=== PATIENT | female | born 1990 | race Caucasian/White ===

== ENCOUNTER 2020-12-01 10:26 | Outpatient (REF) | payer OTHER, SELFPAY | END 2020-12-01 10:27 | disposition home or self-care (01) | LOC: HO.LAB 10:26 | PROVIDERS: Visit Provider Internal Medicine | DX: Z20.828 Contact with and (suspected) exposure to other viral communicable diseases (principal) | CPT/HCPCS: C9803; U0003 ==

== ENCOUNTER 2021-08-19 10:41 | Emergency (ER) | payer OTHER, SELFPAY ==
--- NOTE | ~2021-08-19 | XR_ITS ---
EXAMINATION: XR CHEST CLINICAL INFORMATION: Cough COMPARISON: Chest x-ray on 08/02/2014 TECHNIQUE: Frontal view of the chest was obtained. FINDINGS: The cardiomediastinal silhouette is normal. There is a multiple lead cardiac device extending from the left upper abdomen. There is an abandoned left chest cardiac leads terminating in the brachiocephalic vein. No areas of consolidation. No pleural effusions XR/XR chest 1V IMPRESSION: No acute disease.
[2021-08-19 10:58] VITALS: BP 90/57; PULSE 69; RESP 18; TEMP 37; O2SAT 95; BMI 34.3
[2021-08-19 11:59] LABS: Strep A Nucleic Acid Negative (Negative)
--- NOTE | 2021-08-19 12:36 | ED_ITS ---
HPI - General Adult General Chief complaint: General Medical Stated complaint: SORE THROAT FEVER Time Seen by Provider: 08/19/21 11:05 Source: patient Mode of arrival: ambulatory History of Present Illness HPI narrative: 31-year-old female with no significant past medical history presenting to the ED complaining of sore throat, subjective fever, chills/hot and cold sweats, myalgias, dry cough times a couple days. Denies ear pain, rash, CP, SOB, abdominal pain, sick contacts, recent travel Onset (ago): day(s) Related Data Previous Rx's Medication Instructions Recorded acetaminophen 500 mg tablet 500 mg PO Q6H PRN #20 tab 08/19/21 (Tylenol Extra Strength) benzonatate 100 mg capsule 100 mg PO TID PRN #14 cap 08/19/21 (Tessalon Perles) fluticasone propionate 50 2 spray INTRANASAL DAILY #16 g 08/19/21 mcg/actuation nasal spray,suspension (Flonase Allergy Relief) Allergies Allergy/AdvReac Type Severity Reaction Status Date / Time amoxicillin [AMOXICILLIN] Allergy Unknown RASH, Verified 08/19/21 11:01 rash, swelling, hives sulfamethoxazole Allergy Unknown HIVES Unverified 08/18/20 16:20 [From BACTRIM] trimethoprim [From BACTRIM] Allergy Unknown HIVES Unverified 08/18/20 16:20 Review of Systems Review of Systems: Constitutional: +Subj Fever, + Chills ENT/Mouth: No Ear Pain, + Nasal Congestion, No Sinus Pain, No Hoarseness, + sore throat, + Rhinorrhea, No Swallowing Difficulty Cardiovascular: No Chest Pain, No SOB Respiratory: + Cough, No Sputum, No Wheezing Gastrointestinal: No Nausea, No Vomiting, No Diarrhea, No Constipation, No Abdominal pain Genitourinary: No Dysuria, No Hematuria, No Urgency, No Flank Pain Musculoskeletal: No joint pain, +Myalgias, No Joint Swelling Skin: No Skin Lesions, No rash Neuro: No Weakness, No Numbness, No Paresthesias Yes all other systems are reviewed and are negative COUNTS INCLUDE 234 BEDS AT THE [facility] Past Medical History Attestation statement: The following information was validated with the patient. Medical History (Updated 08/19/21 @ 12:42 by PRATIK Mendez) No known health problems Social History Social History Advance Directives: Yes Advance Directives Information Provided: Yes Advance Directives on File: No Patient : No Physical Exam Vital Signs: Vital Signs: Last Vital Signs Temp 98.6 F 08/19/21 10:58 Pulse 69 08/19/21 10:58 Resp 18 08/19/21 10:58 BP 90/57 L 08/19/21 10:58 Pulse Ox 95 08/19/21 10:58 Body Mass Index 34.3 Const: General: cooperative and healthy appearing Orientation/consciousness: patient oriented x3 Limitations: no limitations HENMT: Head: Yes normal to inspection Ears: hearing grossly normal bilaterally, external ears normal, TM's normal bilaterally and mastoids normal General nose exam: Normal external nose present Face and sinus: Yes normal facial exam Mouth: Normal oral and palatal mucosa present Throat: Yes posterior oropharynx normal, Yes tonsils normal, Yes uvula midline, No peritonsillar mass, No uvula laterally displaced and No uvular edema Eyes: General: appearance normal, both eyes and all related structures EOM: EOMs intact bilaterally Neck: Neck: Yes normal visual inspection, Yes no lymphadenopathy and Yes no meningeal signs Resp: Effort & Inspection: normal respiratory effort Auscultation: clear to auscultation bilaterally and wheezes (slight end expiratory wheeze bibasilar) Cardio: Rate: regular rate Heart sounds: S1 normal heart sound present and S2 normal heart sound present GI: Inspection: Yes normal to inspection Palpation (GI): Soft to palpation and nontender Skin: Rashes: no rashes Wounds: no wounds Neuro: General: patient oriented x3 and no meningeal signs Gait exam (Neuro): Normal gait present Extrem: General: Yes normal to inspection, Yes no pedal edema and Yes no calf tenderness Course Course Course Narrative: -1241--rapid strep negative. XR chest 1V IMPRESSION: No acute disease. > results discussed with patient including worrisome signs and symptoms and strict return precautions. COVID-19 results still pending, will call patient with result later today Medical Decision Making MDM Narrative Medical decision making narrative: 31-year-old female with no significant past medical history presenting to the ED complaining of sore throat, subjective fever, chills/hot and cold sweats, myalgias, dry cough times a couple days. On exam mildly hypotensive, NAD/nontoxic, lungs with slight end expiratory wheeze bibasilar, patient in no respiratory distress, no pedal edema/calf tenderness. Concern for viral syndrome/COVID-19 vs bronchitis. Lower concern for pneumonia. Plan: COVID-19/influenza/RSV testing, rapid strep, CXR, albuterol oral inhaler Lab Data Labs: Lab Results 08/19/21 Range/Units 11:39 S. pyogenes GrpA AMELIA Negative (Negative) Discharge Plan Discharge Clinical Impression: Acute viral syndrome Patient Disposition: Home, Self-Care Additional Instructions: Continue to use albuterol inhaler at home as needed every 4-6 hours for shortness of breath/wheezing Tessalon Perles for cough, take as needed Flonase as a nasal decongestant spray Please follow-up with her doctor. If her symptoms persist or worsen, become unbearable, you have fevers unresolved Tylenol or Motrin please return to the ED Based on your symptoms and history we have sent a COVID-19. Although your RESULT IS PENDING at this time. RESULTS should return within a few hours. At this time you will be contacted with either NEGATIVE OR POSITIVE results. -Please wait until we contact you for your results. At this time you will be okay for discharge. Please plan for self quarantine for up to 10- 14 days. Do not expose yourself to others. You may not go to work. If testing does come back negative you may return to activities as long as you are no longer having any symptoms for at least 3 days. Please continue to follow cold instructions and wash your hands frequently. You may take Tylenol as directed on the bottle for pain or fever. CDC Guidelines for home isolation: - Stay away from others - WEAR A MASK if you are sick AND STAY HOME - Cover your mouth and nose with a tissue when you cough or sneeze. Dispose of tissues in a lined trash can and wash your hands immediately with soap and water for at least 20 seconds. If soap and water are not available, clean hands with alcohol-based hand compensator worker that contains at least 60% alcohol. - Clean your hands often with soap and water for at least 20 seconds - Avoid touching your eyes, nose and mouth with unwashed hands - Do not share dishes, drinking glasses, cups, eating utensils, towels, or b edding with other people in your home. After using these items, wash them thoroughly with soap and water or put in the mixing house operator. - Clean high-touch surfaces in your isolation area ( sick room and bathroom) every day; let a caregiver clean and disinfect high-touch surfaces in other areas of the home. Clean the area or item with soap and water or another detergent if it is dirty. Then, use a household disinfectant. - Limit contact with pets and animals: If you must care for a pet, wash your hands before and after interacting with them) Prescriptions: New acetaminophen [Tylenol Extra Strength] 500 mg tablet 500 mg PO Q6H PRN (Reason: pain or fever) Qty: 20 RF: 0 benzonatate [Tessalon Perles] 100 mg capsule 100 mg PO TID PRN (Reason: cough) Qty: 14 RF: 0 fluticasone propionate [Flonase Allergy Relief] 50 mcg/actuation spray,suspension 2 spray intranasal DAILY Qty: 16 RF: 0 Referrals: Physician,None [Primary Care Provider] - 2 days Stand Alone Forms: Work/School Release
[2021-08-19] MEDS: Albuterol Sulfate 90 MCG 8 GM INHALER 4 PUFF INHALE (12:42)
[2021-08-19 12:55] VITALS: BP 106/52; PULSE 80; RESP 19; O2SAT 97
[2021-08-19 13:09] LABS: Influenza A PCR NEGATIVE (Negative); Influenza B PCR NEGATIVE (Negative); Resp Syncy Virus RNA Qual PCR NEGATIVE (Negative); SARS COV2 PCR INHOUSE NEGATIVE (Negative)
== END 2021-08-19 13:00 | disposition home or self-care (01) ==
PROVIDERS: Physician Assistant; Emergency Provider Emergency Medicine
DX: B34.9 Viral infection, unspecified (principal); R50.9 Fever, unspecified; Z79.899 Other long term (current) drug therapy; Z20.822 Contact with and (suspected) exposure to COVID-19
CPT/HCPCS: 0241U; 36415; 71045; 87651; 99283; 99284

== ENCOUNTER 2022-06-03 08:23 | Emergency (ER) | payer OTHER, SELFPAY ==
--- NOTE | ~2022-06-03 | XR_ITS ---
EXAMINATION: XR ANKLE, RIGHT CLINICAL INFORMATION: Lateral right ankle pain status post twisting injury. COMPARISON: None TECHNIQUE: AP, lateral, and mortise views of the right ankle. FINDINGS: Mild to moderate soft tissue swelling is seen, more pronounced laterally. The ankle joint and mortise are intact. There is no acute fracture or dislocation. The tarsal bones are normally aligned. XR/XR ankle RT 2V IMPRESSION: Mild to moderate soft tissue swelling, more pronounced laterally without acute underlying osseous abnormality.
[2022-06-03 11:20] VITALS: BP 113/70; PULSE 65; RESP 18; TEMP 36.8; O2SAT 98
--- NOTE | 2022-06-03 12:48 | ED.LOWEXIN ---
HPI - Extremity Injury (Lower) General Chief Complaint: Extremity Injury, Lower Stated Complaint: R ankle pain/work inj Time Seen by Provider: 06/03/22 12:48 History of Present Illness HPI Narrative: Patient complains of right ankle pain and swelling when she tripped on uneven ground at work twisting her right ankle, no other injury no other complaint Related Data Previous Rx's Medication Instructions Recorded acetaminophen 500 mg tablet 500 mg PO Q6H PRN pain or fever 08/19/21 (Tylenol Extra Strength) #20 tabs benzonatate 100 mg capsule 100 mg PO TID PRN cough #14 caps 08/19/21 (Tessalon Perles) fluticasone propionate 50 2 spray intranasal DAILY #16 grams 08/19/21 mcg/actuation nasal spray,suspension (Flonase Allergy Relief) ibuprofen 600 mg tablet 600 mg PO Q6H PRN pain #30 tabs 06/03/22 Allergies Allergy/AdvReac Type Severity Reaction Status Date / Time amoxicillin [AMOXICILLIN] Allergy Unknown RASH, Verified 06/03/22 11:20 rash, swelling, hives sulfamethoxazole Allergy Unknown HIVES Verified 06/03/22 11:20 [From BACTRIM] trimethoprim [From BACTRIM] Allergy Unknown HIVES Verified 06/03/22 11:20 Review of Systems Review of Systems: Is positive for right ankle pain and swelling Negatives are no dizziness no headache no fainting no loss of consciousness no neck pain no back pain no numbness weakness or tingling no skin lacerations no other extremity injuries Yes all other systems are reviewed and are negative PMFSH Past Medical History Source: nursing notes reviewed Medical History (Updated 06/03/22 @ 13:00 by PRATIK Esquivel) No known health problems Social History Social History Advance Directives: No Advance Directives Information Provided: No Physical Exam Vital Signs: Vital Signs: Last Vital Signs Temp 98.2 F 06/03/22 11:20 Pulse 65 06/03/22 11:20 Resp 18 06/03/22 11:20 BP 113/70 06/03/22 11:20 Pulse Ox 98 06/03/22 11:20 O2 Del Method 06/03/22 11:20 BMI result Body Mass Index 0.3 General appearance comfortable no distress Head is normocephalic atraumatic Neck is supple Respiratory no distress The back full range of motion Extremities the right ankle is tender and swollen below and around the lateral malleolus, there is no other foot tenderness, the knee has full range of motion, normal in appearance, skin is intact and neurovascular is intact Other extremities are normal Neuro no focal motor sensory deficits Skin no lacerations Course Course Course Narrative: Right ankle x-ray was negative for fracture, patient diagnosed with right ankle sprain and will follow with [facility] for work related injury Discharge Plan Discharge Clinical Impression: Right ankle sprain Patient Disposition: Home, Self-Care Additional Instructions: X-ray did not show any broken bone in her right ankle, so this is a sprained right ankle Apply ice elevate leg Motrin as needed Follow with [facility] for work related injury Prescriptions: New ibuprofen 600 mg tablet 600 mg PO Q6H PRN (Reason: pain) Qty: 30 0RF No Action acetaminophen [Tylenol Extra Strength] 500 mg tablet 500 mg PO Q6H PRN (Reason: pain or fever) Qty: 20 0RF benzonatate [Tessalon Perles] 100 mg capsule 100 mg PO TID PRN (Reason: cough) Qty: 14 0RF fluticasone propionate [Flonase Allergy Relief] 50 mcg/actuation spray,suspension 2 spray intranasal DAILY Qty: 16 0RF Rx Instructions: administer into each nostril Referrals: [facility] [Provider Group] (Right ankle injury after fall at work) Stand Alone Forms: Work/School Release
== END 2022-06-03 13:07 | disposition home or self-care (01) ==
PROVIDERS: Emergency Provider Emergency Medicine Emergency Medical Services
DX: M25.571 Pain in right ankle and joints of right foot (principal); Z79.899 Other long term (current) drug therapy
CPT/HCPCS: 73600; 99283

== ENCOUNTER 2022-09-20 13:06 | Outpatient (REF) | payer OTHER, SELFPAY ==
--- NOTE | ~2022-09-20 | XR_ITS ---
EXAMINATION: XR MANDIBLE CLINICAL INFORMATION: Shoulder pain COMPARISON: None TECHNIQUE: 4 views of the mandible were obtained. FINDINGS: There are no fractures or dislocations. The TM joints appear normal. No bone, joint or soft tissue abnormality is demonstrated. Visualized paranasal sinuses are unremarkable. XR/XR mandible min 4V IMPRESSION: Unremarkable examination.
== END 2022-09-20 13:07 | disposition home or self-care (01) ==
LOC: HO.HMGCX 13:06
DX: R68.84 Jaw pain (principal)
CPT/HCPCS: 70110

== ENCOUNTER 2023-12-11 14:36 | Outpatient (AMB) | payer OTHER, SELFPAY ==
[2023-12-11 14:38] VITALS: BP 136/84; PULSE 78; O2SAT 98; BMI 35.7
--- NOTE | 2023-12-11 14:38 | A.OFFPC_ITS ---
Vital Signs 12/11/23 14:38 Height 5 ft 4 in Weight 208 lb BMI 35.7 BP 136/84 Blood Pressure Location Lt brachial Position Sitting Pulse 78 Pulse Source Pulse Oximeter Pulse Oximetry (%) 98 Oxygen Delivery Method Room Air Intake Visit Reasons: Annual Pe Allergies amoxicillin [AMOXICILLIN] Allergy (Unknown, Verified 12/11/23 14:38) RASH, rash, swelling, hives sulfamethoxazole [From BACTRIM] Allergy (Unknown, Verified 12/11/23 14:38) HIVES trimethoprim [From BACTRIM] Allergy (Unknown, Verified 12/11/23 14:38) HIVES Medication List - Last Reconciled 12/11/23 by Erlin Boston MD No Known Home Meds Tobacco use date assessed: 12/11/23 Dental Screening Dental Screen Date: 12/11/23 Did you have a dental visit in the last 12 months?: Yes Did you have a dental problem in the last 6 months where you did not have access to dental care?: No Was dental information given to patient?: Patient has dentist HPI Annual Pe HPI Details Patient is 33-year-old female came in today for physical examination Patient goes to [facility] breast exam and Pap smear through them Complaining of left ear pain on examination patient have erythematous tympanic membrane I have sent azithromycin course Also continued to smoke, tells me that when she stops walking she feels very anxious and is requesting a treatment I have sent buspirone 5 mg tablet patient may take that up to 2 times a day I have also ordered labs for the patient she have a history of recurrent miscarriages I have ordered ANNMARIE test as well. Continued to drink alcohol and continued to smoke, once again we discussed the toxic effects of nicotine and alcohol and I would urge patient to stop as soon as possible Patient will return in 2 or 3 weeks for follow-up [facility] Medical History Pain in lower jaw No known health problems Social History Patient Tobacco Use Status: Current everyday Tobacco user e-Cigarette/Vaping Use: Never Used service: No Current occupational status: employed Cognitive needs: No Hearing needs: No Vision needs: Yes Questionnaire PHQ-9 Over the last 2 weeks, how often have you been bothered by any of the following problems? 1. Little interest or pleasure in doing things: not at all 2. Feeling down, depressed, or hopeless: not at all 3. Trouble falling or staying asleep, or sleeping too much: not at all 4. Feeling tired or having little energy: not at all 5. Poor appetite or overeating: not at all 6. Feeling bad about yourself - or that you are a failure or have let yourself or your family down: not at all 7. Trouble concentrating on things, such as reading the newspaper or watching television: not at all 8. Moving or speaking so slowly that other people could have noticed. Or the opposite - being so fidgety or restless that you have been moving around a lot more than usual: not at all 9. Thoughts that you would be better off or of hurting yourself in some way: not at all Total score: 0 Depression Screening Interpretation: Negative Depression Screening Done: Yes 75811 - PHQ-9 Billing: Yes Source: Developed by Drs. Giorgi Ventura, Graciela Shahid, Estuardo Paiz and colleagues, with an educational paddy from [employer]. Thrive Questionnaire Date Thrive assessed: 03/07/23 I am a: Patient What is your living situation today?: I have a steady place to live Within the past 12 months, did the food you bought not last and you didn't have the money to get more?: Never true Within the past 12 months, did you worry whether your food would run out before you got money to buy more?: Never true Do you have trouble paying for medicines?: No Do you have trouble getting transportation to medical appointments?: No Do you have trouble paying your heating and electricity bill?: No Do you have trouble taking care of your child, family member or friend?: No Do you have trouble with day-to-day activities such as bathing, preparing meals, shopping, managing finances, etc.?: No Are you currently unemployed and looking for a job?: No Are you interested in more education?: No Please select the resources that you would like help with: None Currently or been in a relationship where the following occur: no concerns reported AUDIT C Alcohol Use Questionnaire (AUDIT-C) 1. How often do you have a drink containing alcohol?: Monthly or less 2. How many drinks containing alcohol do you have on a typical day when you are drinking?: 10 or more 3. How often do you have six or more drinks on one occasion?: Monthly Total Score: 7 Score Reviewed/Action Taken: Yes (Help offered) ROSCOE-7 AMB Questionnaire ROSCOE-7 Date ROSCOE - 7 assessed: 12/11/23 Feeling nervous, anxious, or on edge: 0 = Not at all Not being able to stop or control worryin = Not at all Worrying too much about different things: 0 = Not at all Trouble relaxin = Not at all Being so restless that it is hard to sit still: 0 = Not at all Becoming easily annoyed or irritable: 0 = Not at all Feeling afraid as if something awful might happen: 0 = Not at all Total ROSCOE-7 score (0-4 normal; 5-9 mild; 10-14 moderate; 15-21 severe): 0 Source: Developed by Drs. Giorgi Ventura, Graciela Shahid, Estuardo Paiz and colleagues, with an educational paddy from [employer]. ROSCOE-7 Assessment Billing ROSCOE-7 Assessment Tool: ROSCOE-7 Assessment 78073 Review of Systems Const Denies chills, Denies fever(s) and Denies headache(s) Eyes Denies blurry vision ENT Denies headache(s), Denies nasal discharge, Denies nasal obstruction, Denies odynophagia and Denies sinus pain Card Denies chest pain at rest and Denies chest pain with activity Resp Denies cough and Denies hemoptysis GI Denies diarrhea, Denies odynophagia, Denies vomiting and Denies hematemesis Reports as per HPI Musc Denies abnormal gait Skin/Breast Reports as per HPI Neuro Denies Neuro-related abnormal movements, Denies Abnormal speech present, Denies abnormal gait, Denies headache(s) and Denies Sensory deficit (Neuro) Psych Denies mood swings and Denies paranoia Endo Reports as per HPI Ermias/Lymph Reports as per HPI Aller/Immun Reports as per HPI Physical exam (Primary Care) Vital Signs: Last Vital Signs Pulse 78 12/11/23 14:38 BP 136/84 12/11/23 14:38 Pulse Ox 98 12/11/23 14:38 Oxygen Delivery Method Room Air 12/11/23 14:38 BMI result Body Mass Index 35.7 BMI Assessment/Plan discussion: High Tobacco/Smoking Status: Tobacco use Status Tobacco use date assessed 12/11/23 12/11/23 14:43 Patient Tobacco Use Status Current everyday Tobacco 12/11/23 14:43 e-Cigarette/Vaping Use Never Used 12/11/23 14:43 Are you ready to quit: Yes Tobacco cessation counseling provided: Yes Relapse Prevention: discussed the importance of a supportive environment CPT code: 23625 - 4-10 Minutes Depression Screening Interpretation: Negative Thrive Assessment: Date of Thrive Assessment Date Thrive assessed 02/01/23 12/11/23 14:43 Currently or been in a relationship where the following occur: no concerns reported Const General: cooperative, comfortable and no acute distress Orientation/consciousness: patient oriented x3 HENMT Other: Right ear tympanic membrane erythematous with intact light reflex Head: Yes normocephalic and Yes atraumatic Eyes General: appearance normal, both eyes and all related structures Pupils: Equal, round and reactive pupils present EOM: EOMs intact bilaterally Neck Neck: Yes supple and No lymphadenopathy Thyroid: Thyroid normal Lymphatic: no lymphadenopathy noted Resp Effort & Inspection: normal respiratory effort and able to speak in complete sentences Auscultation: clear to auscultation bilaterally Cardio Heart sounds: S1 normal heart sound present and S2 normal heart sound present GI Palpation (GI): Soft to palpation and nontender Auscultation: normal bowel sounds General: Yes no CVA tenderness Back/Spine/Pelvis Back: no CVA tenderness Skin General skin exam: elasticity normal and turgor normal Neuro General: patient oriented x3 and gait normal Cranial nerves: Yes Equal, round and reactive pupils present Speech: No Abnormal speech present Sensory Exam: No Sensory deficit (Neuro) Coordination: tandem gait normal and Romberg test negative Extrem General: Yes normal exam except as noted and No edema Assessment and Plan Assessment & Plan (1) Encounter for general adult medical examination with abnormal findings: Code(s): Z00.01 - Encounter for general adult medical examination with abnormal findings (2) Nicotine dependence: Code(s): F17.200 - Nicotine dependence, unspecified, uncomplicated Qualifiers: Nicotine product type: cigarettes Substance use status: uncomplicated (3) Alcohol dependence: Code(s): F10.20 - Alcohol dependence, uncomplicated Qualifiers: Substance use status: uncomplicated (4) Major depression, recurrent: Code(s): F33.9 - Major depressive disorder, recurrent, unspecified Qualifiers: Active/Remission status: in partial remission (5) Anxiety, generalized: Code(s): F41.1 - Generalized anxiety disorder (6) History of multiple miscarriages: Code(s): N96 - Recurrent loss (7) S/P placement of cardiac pacemaker: Code(s): Z95.0 - Presence of cardiac pacemaker (8) Bipolar disorder: Code(s): F31.9 - Bipolar disorder, unspecified Qualifiers: Active/Remission status: in full remission Most recent bipolar episode type: mixed (9) Congenital heart defect: Code(s): Q24.9 - Congenital malformation of heart, unspecified (10) Obesity due to excess calories: Code(s): E66.09 - Other obesity due to excess calories Qualifiers: Obesity classification: adult class 2 (BMI 35 - 39.9) Serious obesity comorbidity presence: with serious comorbidity Body mass index: BMI 35.0-35.9 Qualified Code(s): E66.01 - Morbid (severe) obesity due to excess calories; Z68.35 - Body mass index [BMI] 35.0-35.9, adult Plan Patient is 33-year-old female came in today for physical examination Patient goes to [facility] breast exam and Pap smear through them Complaining of left ear pain on examination patient have erythematous tympanic membrane I have sent azithromycin course Also continued to smoke, tells me that when she stops walking she feels very anxious and is requesting a treatment I have sent buspirone 5 mg tablet patient may take that up to 2 times a day I have also ordered labs for the patient she have a history of recurrent miscarriages I have ordered ANNMARIE test as well. Continued to drink alcohol and continued to smoke, once again we discussed the toxic effects of nicotine and alcohol and I would urge patient to stop as soon as possible Patient have a diagnosis of bipolar disorder and major depression she was taking Abilify in the past but has stopped taking it. Patient was seeing psychiatrist at that time. BMI is also elevated need to lose weight Patient will return in 2 or 3 weeks for follow-up Orders: Orders Anti DNA DS Antibody Today N96 - Recurrent loss Medications: New buspirone 5 mg PO BID 15 days 30 tabs 0RF Anxiety azithromycin Take 2 tablets today then 1 daily 250 mg PO ONCE 5 days 6 tabs 0RF J06.9 - Acute upper respiratory infection, unspecified Coding Level of Care Code Est Pt Prev Care 18-39y(30635) Diagnoses Encounter for general adult medical examination with abnormal findings Z00.01 Nicotine dependence F17.200 Nicotine product type: cigarettes Substance use status: uncomplicated Alcohol dependence F10.20 Substance use status: uncomplicated Major depression, recurrent F33.9 Active/Remission status: in partial remission Anxiety, generalized F41.1 History of multiple miscarriages N96 S/P placement of cardiac pacemaker Z95.0 Bipolar disorder F31.9 Active/Remission status: in full remission Most recent bipolar episode type: mixed Congenital heart defect Q24.9 Class 2 severe obesity due to excess calories with serious comorbidity and body mass index (BMI) of 35.0 to 35.9 in adult E66.01; Z68.35 Obesity classification: adult class 2 (BMI 35 - 39.9) Serious obesity comorbidity presence: with serious comorbidity Body mass index: BMI 35.0-35.9 Additional Codes Vital Signs *Quality* - CPT code: 82115 - 4-10 Minutes ([id number]) ROSCOE-7 Assessment Billing - ROSCOE-7 Assessment Tool: ROSCOE-7 Assessment 77227 ([id number])
== END 2023-12-11 15:04 | disposition home or self-care (01) ==
PROVIDERS: PCP Internal Medicine; Visit Provider Internal Medicine
DX: Z00.01 Encounter for general adult medical examination with abnormal findings (principal); F10.20 Alcohol dependence, uncomplicated; F33.9 Major depressive disorder, recurrent, unspecified; J06.9 Acute upper respiratory infection, unspecified; E66.01 Morbid (severe) obesity due to excess calories; F31.9 Bipolar disorder, unspecified; F17.210 Nicotine dependence, cigarettes, uncomplicated; F41.1 Generalized anxiety disorder; Z68.35 Body mass index [BMI] 35.0-35.9, adult; N96 Recurrent pregnancy loss; Z95.0 Presence of cardiac pacemaker; Q24.9 Congenital malformation of heart, unspecified
CPT/HCPCS: 99213; 99395

== ENCOUNTER 2023-12-17 10:22 | Outpatient (REF) | payer OTHER, SELFPAY ==
[2023-12-18 13:04] LABS: Anti DNA DS Antibody 4 IU/mL
== END 2023-12-17 10:23 | disposition home or self-care (01) ==
LOC: HO.HMGCLDS 10:22
PROVIDERS: PCP Internal Medicine; Visit Provider Internal Medicine
DX: N96 Recurrent pregnancy loss (principal)
CPT/HCPCS: 36415; 86225

== ENCOUNTER 2023-12-24 12:16 | Outpatient (AMB) | payer OTHER, SELFPAY ==
[2023-12-24 12:33] VITALS: BP 110/72; PULSE 70; O2SAT 98; BMI 35.7
--- NOTE | 2023-12-24 12:33 | A.OFFPC_ITS ---
Vital Signs 12/24/23 12:33 Height 5 ft 4 in Weight 208 lb BMI 35.7 BP 110/72 Blood Pressure Location Lt brachial Position Sitting Pulse 70 Pulse Source Pulse Oximeter Pulse Oximetry (%) 98 Oxygen Delivery Method Room Air Intake Visit Reasons: F/U Ear infection/meds/Anxiety Allergies amoxicillin [AMOXICILLIN] Allergy (Unknown, Verified 12/11/23 14:38) RASH, rash, swelling, hives sulfamethoxazole [From BACTRIM] Allergy (Unknown, Verified 12/11/23 14:38) HIVES trimethoprim [From BACTRIM] Allergy (Unknown, Verified 12/11/23 14:38) HIVES Medication List - Last Reconciled 12/24/23 by Erlin Boston MD buspirone 5 mg PO BID 15 days Tobacco use date assessed: 12/24/23 Dental Screening Dental Screen Date: 12/24/23 Did you have a dental visit in the last 12 months?: Yes Did you have a dental problem in the last 6 months where you did not have access to dental care?: No Was dental information given to patient?: Patient has dentist HPI F/U Ear infection/meds/Anxiety HPI Details Patient is 33-year-old female she is doing much better as far as anxiety is concerned She is taking BuSpar 5 mg b.i.d. and has cut down on her smoking a lot Patient was diagnosed with antiphospholipid antibody syndrome in [facility] We did the double-stranded DNA test which came back at 4 I have placed a referral request for patient to be evaluated by Hematology Meanwhile she is to start taking baby aspirin daily Patient has appointment for physical exam in January [facility] Medical History Pain in lower jaw No known health problems Social History Housing: Apartment Patient Tobacco Use Status: Current everyday Tobacco user e-Cigarette/Vaping Use: Never Used service: No Current occupational status: employed Cognitive needs: No Hearing needs: No Vision needs: Yes Questionnaire Thrive Questionnaire Date Thrive assessed: 03/07/23 AUDIT C Alcohol Use Questionnaire (AUDIT-C) 1. How often do you have a drink containing alcohol?: Monthly or less 2. How many drinks containing alcohol do you have on a typical day when you are drinking?: 3 or 4 3. How often do you have six or more drinks on one occasion?: Monthly Total Score: 4 Score Reviewed/Action Taken: Yes (Help offered) ROSCOE-7 AMB Questionnaire ROSCOE-7 Date ROSCOE - 7 assessed: 12/11/23 Source: Developed by Drs. Giorgi Ventura, Graciela Shahid, Estuardo Paiz and colleagues, with an educational paddy from [employer]. Review of Systems Const Denies chills and Denies fever(s) ENT Denies epistaxis and Denies nasal discharge Card Denies chest pain Resp Denies chest congestion, Denies cough and Denies hemoptysis GI Denies diarrhea and Denies nausea Skin/Breast Denies rash Neuro Reports no additional complaints Psych Reports no additional complaints Endo Reports no additional complaints Physical exam (Primary Care) Vital Signs: Last Vital Signs Pulse 70 12/24/23 12:33 BP 110/72 12/24/23 12:33 Pulse Ox 98 12/24/23 12:33 Oxygen Delivery Method Room Air 12/24/23 12:33 BMI result Body Mass Index 35.7 Tobacco/Smoking Status: Tobacco use Status Tobacco use date assessed 12/24/23 12/24/23 12:38 Patient Tobacco Use Status Current everyday Tobacco 12/24/23 12:34 e-Cigarette/Vaping Use Never Used 12/24/23 12:34 Thrive Assessment: Date of Thrive Assessment Date Thrive assessed 03/07/23 12/24/23 12:34 Const General: cooperative, comfortable and no acute distress Orientation/consciousness: patient oriented x3 HENMT Head: Yes normocephalic Eyes General: appearance normal, both eyes and all related structures Neck Neck: Yes supple Resp Effort & Inspection: normal respiratory effort, no cough and no stridor Cardio Rhythm: regular rhythm Heart sounds: S1 normal heart sound present and S2 normal heart sound present Skin General skin exam: turgor normal Neuro General: patient oriented x3, tone normal and moves all extremities Extrem Right lower extremity: no edema Left lower extremity: no edema Assessment and Plan Assessment & Plan (1) Antiphospholipid antibody syndrome: Code(s): D68.61 - Antiphospholipid syndrome (2) Anxiety, generalized: Code(s): F41.1 - Generalized anxiety disorder (3) Major depression, recurrent: Code(s): F33.9 - Major depressive disorder, recurrent, unspecified Qualifiers: Active/Remission status: in partial remission Qualified Code(s): F33.41 - Major depressive disorder, recurrent, in partial remission (4) Nicotine dependence: Code(s): F17.200 - Nicotine dependence, unspecified, uncomplicated Qualifiers: Nicotine product type: cigarettes Substance use status: uncomplicated Qualified Code(s): F17.210 - Nicotine dependence, cigarettes, uncomplicated Plan Patient is 33-year-old female she is doing much better as far as anxiety is concerned She is taking BuSpar 5 mg b.i.d. and has cut down on her smoking a lot Patient was diagnosed with antiphospholipid antibody syndrome in [facility] We did the double-stranded DNA test which came back at 4 I have placed a referral request for patient to be evaluated by Hematology Meanwhile she is to start taking baby aspirin daily Patient has appointment for physical exam in January Orders: Referrals Hematology & Oncology Referral D68.61 - Antiphospholipid syndrome Medications: Changed From buspirone 5 mg PO BID 15 days 30 tabs 0RF Anxiety To buspirone 5 mg PO TID 270 tabs 0RF Anxiety 90 days Coding Level of Care Code Est Pt Level 4 (90760) Diagnoses Antiphospholipid antibody syndrome D68.61 Anxiety, generalized F41.1 Recurrent major depressive disorder, in partial remission F33.41 Active/Remission status: in partial remission Cigarette nicotine dependence without complication F17.210 Nicotine product type: cigarettes Substance use status: uncomplicated
== END 2023-12-24 13:07 | disposition home or self-care (01) ==
PROVIDERS: PCP Internal Medicine; Visit Provider Internal Medicine
DX: D68.61 Antiphospholipid syndrome (principal); F41.1 Generalized anxiety disorder; F33.41 Major depressive disorder, recurrent, in partial remission; F17.210 Nicotine dependence, cigarettes, uncomplicated
CPT/HCPCS: 99214

== ENCOUNTER 2024-01-30 09:02 | Outpatient (AMB) | payer OTHER, SELFPAY ==
--- NOTE | 2024-01-30 09:48 | AM.OFFWIN_ITS ---
Intake Vital Signs 01/30/24 09:49 Height 5 ft 4 in Weight 208 lb BMI 35.7 BP 110/72 Blood Pressure Location Lt brachial Position Sitting Pulse 78 Pulse Source Pulse Oximeter Temp 98.2 F Temp Source Oral Pulse Oximetry (%) 98 Oxygen Delivery Method Room Air Intake Visit Reasons: EST/ red patches all over body([phone]) Intake Note: pt is here for red patches all over body since yesterday, denies new medication Patient Tobacco Use Status: Current everyday Tobacco user Allergies amoxicillin [AMOXICILLIN] Allergy (Unknown, Verified 01/30/24 09:49) RASH, rash, swelling, hives sulfamethoxazole [From BACTRIM] Allergy (Unknown, Verified 01/30/24 09:49) HIVES trimethoprim [From BACTRIM] Allergy (Unknown, Verified 01/30/24 09:49) HIVES Do you need a note to return to daycare/school/sports/work: Yes HPI HPI Comments History of Present Illness Details 33 y/o female patient who presents to [facility] in clinic with c/o hives all over her body. Reports noticing them yesterday morning. Denies SOB, facial or tongue swelling. Denies changes to her cosmetic, or detergent. Denies new medications or change of diet. [facility] Medical History Pain in lower jaw No known health problems Social History Housing: Apartment Patient Tobacco Use Status: Current everyday Tobacco user e-Cigarette/Vaping Use: Never Used service: No Current occupational status: employed Cognitive needs: No Hearing needs: No Vision needs: Yes Review of Systems Const All systems reviewed & are unremarkable except as noted in HPI and below Physical Exam Vital Signs: Last Vital Signs Temp 98.2 F 01/30/24 09:49 Pulse 78 01/30/24 09:49 BP 110/72 01/30/24 09:49 Pulse Ox 98 01/30/24 09:49 Oxygen Delivery Method Room Air 01/30/24 09:49 BMI result Body Mass Index 35.7 Const General: no acute distress Nutritional Appearance: overweight Orientation/consciousness: patient oriented x3 Skin Other: Small to medium size wheals with redness and indurated, on arms, torso and lower legs. Neuro General: patient oriented x3 Gait exam (Neuro): Normal gait present Extrem General: Yes full ROM Assessment & Plan Assessment & Plan (1) Hives: Code(s): L50.9 - Urticaria, unspecified Plan: - Use the cream as directed. Medications: New hydrocortisone 1% (Anti-Itch (hydrocortisone)) 1 appl topical BID PRN 28.4 grams 0RF skin irritation and hives L50.9 - Urticaria, unspecified prednisone 20 mg PO DAILY 5 days 5 tabs 0RF L50.9 - Urticaria, unspecified Coding Level of Care Code Est Pt Level 3 (71269) Diagnoses Hives L50.9 Time Spent (min) 15
[2024-01-30 09:49] VITALS: BP 110/72; PULSE 78; TEMP 36.8; O2SAT 98; BMI 35.7
== END 2024-01-30 10:35 | disposition home or self-care (01) ==
PROVIDERS: PCP Internal Medicine; Visit Provider Nurse Practitioner Family
DX: L50.9 Urticaria, unspecified (principal)
CPT/HCPCS: 99213

== ENCOUNTER → 2024-03-09 14:08 | Outpatient (BNV) | payer OTHER, SELFPAY | PROVIDERS: PCP Internal Medicine; Referring Provider Internal Medicine; Visit Provider Internal Medicine Medical Oncology | DX: D68.61 Antiphospholipid syndrome (principal) | CPT/HCPCS: 99204; 99213 ==

== ENCOUNTER 2024-04-08 10:48 | Outpatient (AMB) | payer OTHER, SELFPAY ==
[2024-04-08 10:55] VITALS: BP 110/80; PULSE 73; TEMP 36.4; O2SAT 96; BMI 36.0
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
== END 2024-04-08 12:15 | disposition home or self-care (01) ==
PROVIDERS: PCP Internal Medicine; Visit Provider Physician Assistant Medical
DX: M54.12 Radiculopathy, cervical region (principal)
CPT/HCPCS: 99213

== ENCOUNTER 2024-04-08 11:09 | Outpatient (REF) | payer OTHER, SELFPAY ==
--- NOTE | ~2024-04-08 | XR_ITS ---
EXAMINATION: XR CERVICAL SPINE CLINICAL INFORMATION: Neck pain COMPARISON: None available. TECHNIQUE: 3 views of the cervical spine were obtained. FINDINGS: Bone alignment is normal. No fracture or dislocation. Mild disc space narrowing at C6-C7. Prevertebral soft tissues are normal. Partially visualized lead in the left chest similar to chest x-ray August 2021 XR/XR cervical spine 3V IMPRESSION: Mild disc space narrowing at C6-C7.
== END 2024-04-08 11:10 | disposition home or self-care (01) ==
LOC: HO.HMGCX 11:09
PROVIDERS: PCP Internal Medicine; Visit Provider Physician Assistant Medical
DX: M54.2 Cervicalgia (principal)
CPT/HCPCS: 72040

== ENCOUNTER 2024-04-15 11:51 | Outpatient (AMB) | payer OTHER, SELFPAY ==
[2024-04-15 12:02] VITALS: BP 118/84; PULSE 84; O2SAT 98; BMI 35.9
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
== END 2024-04-15 12:19 | disposition home or self-care (01) ==
PROVIDERS: PCP Internal Medicine; Visit Provider Internal Medicine
DX: M54.12 Radiculopathy, cervical region (principal); R20.2 Paresthesia of skin
CPT/HCPCS: 99213

== ENCOUNTER 2024-04-24 10:30 | Outpatient (REF) | payer OTHER, SELFPAY ==
--- NOTE | 2024-04-24 10:33 | EMG_ITS ---
Chief complaint: Left shoulder/arm pain Reason for referral: Evaluate for cervical radiculopathy Referred by: Dr. Erlin Boston Procedure done: Left upper extremity NCS/EMG Precautions and/or limitations: Pacemaker The limb temperature was monitored continuously and remained between 32-36 degrees C during the performance of the NCS. Nerve Conduction Studies Anti Sensory Summary Table ?Stim Site NR Onset (ms) Norm Onset (ms) Peak (ms) Norm Peak (ms) O-P Amp (?V) Norm O-P Amp Site1 Site2 Delta-0 (ms) Dist (cm) Geronimo (m/s) Norm Geronimo (m/s) Left Median Anti Sensory (2nd Digit) Wrist ? 2.5 3.0 <3.6 12.6 >10 Wrist 2nd Digit 2.5 14.0 56 Left Radial Anti Sensory (Thumb) Forearm ? 1.9 2.2 <3.1 20.4 Forearm Thumb 1.9 0.0 Left Ulnar Anti Sensory (5th Digit) Wrist ? 2.1 2.7 <3.7 22.4 >15.0 Wrist 5th Digit 2.1 14.0 67 Motor Summary Table ?Stim Site NR Onset (ms) Norm Onset (ms) O-P Amp (mV) Norm O-P Amp iAmp (mV) Amp (1st) (%) Site1 Site2 Delta-0 (ms) Dist (cm) Geronimo (m/s) Norm Geronimo (m/s) Left Median Motor (Abd Poll Brev) Wrist ? 3.1 <3.9 11.1 >4.5 13.6 100.0 Elbow Wrist 3.1 19.0 61 >45 Elbow ? 6.2 10.8 13.4 97.3 Left Ulnar Motor (Abd Dig Minimi) Wrist ? 2.4 <3.0 8.1 >5 10.5 100.0 B Elbow Wrist 2.6 18.0 69 >45 B Elbow ? 5.0 7.6 10.3 93.8 A Elbow B Elbow 1.3 10.0 77 >45 A Elbow ? 6.3 7.7 10.2 95.1 EMG ?Side Muscle Nerve Root Ins Act Fibs Psw Amp Dur Poly Recrt Int Pat Comment Left 1stDorInt Ulnar C8-T1 Nml Nml Nml Nml Nml 0 Nml Complete Left FlexCarRad Median C6-7 Nml Nml Nml Nml Nml 0 Nml Complete Left Biceps Musculocut C5-6 Nml Nml Nml Nml Nml 0 Nml Complete Left Triceps Radial C6-7-8 Nml Nml Nml Nml Nml 0 Nml Complete Left Deltoid Axillary C5-6 Nml Nml Nml Nml Nml 0 Nml Complete FINDINGS: All motor and sensory nerves tested showed normal latencies, amplitudes and conduction velocities. Concentric needle EMG was performed in selected muscles of the left upper extremity. Study did not reveal signs of electric abnormalities as shown in the table below. IMPRESSION: 1. This is a normal study. 2. There is no electrodiagnostic evidence for median neuropathy, ulnar neuropathy, brachial plexopathy, or cervical radiculopathy. Thank you for your kind referral. Isabell Jenkins MD, RAMO Board Certified, [place] Board [employer] and [employer] (ABPMR) Board Certified, [place] Board of Electrodiagnostic Medicine (ABEM) CODIN [address]00 MTDD
== END 2024-04-24 10:31 | disposition home or self-care (01) ==
LOC: HO.NEURO 10:30
PROVIDERS: PCP Internal Medicine; Visit Provider Internal Medicine
DX: R20.2 Paresthesia of skin (principal); M54.12 Radiculopathy, cervical region
CPT/HCPCS: 95886; 95909

== ENCOUNTER → 2024-04-24 10:33 | Outpatient (BNV) | payer OTHER, SELFPAY | PROVIDERS: PCP Internal Medicine; Visit Provider Physical Medicine & Rehabilitation | DX: R20.2 Paresthesia of skin (principal); M79.602 Pain in left arm; M25.512 Pain in left shoulder | CPT/HCPCS: 95886; 95909 ==

== ENCOUNTER 2024-05-09 13:19 | Outpatient (AMB) | payer OTHER, SELFPAY ==
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
[2024-05-09 13:27] VITALS: BP 120/70; PULSE 82; TEMP 36.6; O2SAT 98; BMI 35.0
== END 2024-05-09 15:08 | disposition home or self-care (01) ==
PROVIDERS: PCP Internal Medicine; Visit Provider Physician Assistant Medical
DX: S16.1XXD Strain of muscle, fascia and tendon at neck level, subsequent encounter (principal)
CPT/HCPCS: 99051; 99214

== ENCOUNTER 2024-05-13 09:20 | Outpatient (AMB) | payer OTHER, SELFPAY ==
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
[2024-05-13 09:30] VITALS: BP 132/88; PULSE 86; O2SAT 98; BMI 35.2
== END 2024-05-13 13:27 | disposition home or self-care (01) ==
PROVIDERS: PCP Internal Medicine; Visit Provider Internal Medicine
DX: R20.2 Paresthesia of skin (principal); M54.9 Dorsalgia, unspecified; R29.898 Other symptoms and signs involving the musculoskeletal system
CPT/HCPCS: 99214

== ENCOUNTER 2024-06-25 13:00 | Outpatient (RCR) | payer OTHER, SELFPAY ==
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
== END 2024-09-04 12:49 | disposition home or self-care (01) ==
LOC: HO.PT 13:00
PROVIDERS: PCP Psychiatry & Neurology Neurology; Visit Provider Psychiatry & Neurology Neurology
DX: M54.2 Cervicalgia (principal)
CPT/HCPCS: 97110; 97140; 97161; 97535

== ENCOUNTER 2024-07-30 09:30 | Outpatient (AMB) | payer OTHER, SELFPAY ==
--- NOTE | 2024-07-30 09:36 | MHC.OFFWIV ---
Intake Vital Signs 07/30/24 09:37 Height 5 ft 4 in Weight 210 lb BMI 36.0 BP 120/86 Blood Pressure Location Lt brachial Position Sitting Pulse 82 Pulse Source Pulse Oximeter Temp 98.1 F Temp Source Oral Pulse Oximetry (%) 98 Oxygen Delivery Method Room Air Intake Visit Reasons: PE-UTI? and lots of sweating Intake Note: Patient here for fowl odor, burning when urinating, very fatigued for about 4 days. Patient Tobacco Use Status: Current everyday Tobacco user Allergies amoxicillin [AMOXICILLIN] Allergy (Unknown, Verified 07/30/24 09:38) RASH, rash, swelling, hives sulfamethoxazole [From BACTRIM] Allergy (Unknown, Verified 07/30/24 09:38) HIVES trimethoprim [From BACTRIM] Allergy (Unknown, Verified 07/30/24 09:38) HIVES Do you need a note to return to daycare/school/sports/work: Yes HPI HPI Comments History of Present Illness Details Patient is a 34-year-old female complaining of foul odor of her urine, burning when urinating, very fatigued for 4 days. She also states she has associated lower abdominal pain. She denies any fevers, blood in her urine or back pain. She is also thinking she might be is asking for a test. [facility] Medical History Pacemaker Pain in lower jaw No known health problems Family History Maternal Grandfather Bladder cancer Renal cancer Social History Housing: Apartment Patient Tobacco Use Status: Current everyday Tobacco user e-Cigarette/Vaping Use: Never Used Substance Use Type: Marijuana service: No Current occupational status: employed Cognitive needs: No Hearing needs: No Vision needs: Yes Review of Systems Const All systems reviewed & are unremarkable except as noted in HPI and below Physical Exam Vital Signs: Last Vital Signs Temp 98.1 F 07/30/24 09:37 Pulse 82 07/30/24 09:37 BP 120/86 07/30/24 09:37 Pulse Ox 98 07/30/24 09:37 Oxygen Delivery Method Room Air 07/30/24 09:37 BMI result Body Mass Index 36.0 Const General: cooperative, healthy appearing, comfortable, no acute distress and well developed Orientation/consciousness: patient oriented x3 Limitations: no limitations HEENT Head: Yes normal to inspection Ears: hearing grossly normal bilaterally General nose exam: Normal external nose present Face and sinus: Yes normal facial exam Eyes General: appearance normal, both eyes and all related structures Neck Neck: Yes normal visual inspection and Yes full ROM Resp Effort & Inspection: normal respiratory effort and able to speak in complete sentences GI Inspection: Yes normal to inspection Palpation (GI): Soft to palpation and Tenderness to palpation present (GI) suprapubicly Skin General skin exam: no rashes or lesions noted Neuro General: patient oriented x3 Extrem General: Yes normal to inspection Results AMB Urinalysis, Automated UA Leukoctes 0 [place]/uL Last Edit by PERCY Ramirez on 07/30/24 09:50 UA Nitrite Positive Last Edit by Maxi Draper CCM on 07/30/24 09:50 UA Urobilinogen 0.2 mg/dL Last Edit by Maxi Draper CCM on 07/30/24 09:50 UA Protein 0 mg/dL Last Edit by Maxi Draper CCM on 07/30/24 09:50 UA pH 6.0 Last Edit by Maxi Draper CCM on 07/30/24 09:50 UA Blood 25 [place]kh/uL Last Edit by Maxi Draper CCM on 07/30/24 09:50 UA Specific [place] 1.015 Last Edit by Maxi Draper CCM on 07/30/24 09:50 UA Ketone Negative Last Edit by Maxi Draper CCM on 07/30/24 09:50 UA Bilirubin 0 mg/dL Last Edit by Maxi Draper CCM on 07/30/24 09:50 UA Glucose 0 mg/dL Last Edit by Maxi Draper CCM on 07/30/24 09:50 AMB Test Urine AMB Test Urine Negative Last Edit by Maxi Draper CCM on 07/30/24 09:52 Results Reviewed Results Reviewed: Laboratory Last Values Urine pH (Auto) 6.0 07/30/24 09:49 Specific [place] (Auto) 1.015 07/30/24 09:49 Urine Protein (Auto) 0 mg/dL 07/30/24 09:49 Glucose (UA)(Auto) 0 mg/dL 07/30/24 09:49 Urine Ketones (Auto) Negative 07/30/24 09:49 Urine Blood (Auto) 25 Hasmukh/uL 07/30/24 09:49 Urine Nitrite (Auto) Positive 07/30/24 09:49 Urine Bilirubin (Auto) 0 mg/dL 07/30/24 09:49 Urine Urobilinogen (Auto) 0.2 mg/dL 07/30/24 09:49 Leukocyte Esterase (Auto) 0 [place]/uL 07/30/24 09:49 Assessment & Plan Assessment & Plan (1) UTI (urinary tract infection): Code(s): N39.0 - Urinary tract infection, site not specified Qualifiers: Urinary tract infection type: acute cystitis Hematuria presence: with hematuria Qualified Code(s): N30.01 - Acute cystitis with hematuria Plan: Urine test negative, UA positive for nitrites, sent Macrobid pharmacy Plan see above Orders: Orders AMB Urinalysis Automated Today Z13.9 - Encounter for screening, unspecified AMB HCG Urine Test Today Z32.02 - Encounter for test, result negative Medications: New nitrofurantoin monohyd/m-cryst 100 mg (Macrobid) must administer with a meal/food 100 mg PO Q12H 5 days 10 caps 0RF Coding Level of Care Code Est Pt Level 3 (35920) Diagnoses Acute cystitis with hematuria N30.01 Urinary tract infection type: acute cystitis Hematuria presence: with hematuria
[2024-07-30 09:37] VITALS: BP 120/86; PULSE 82; TEMP 36.7; O2SAT 98; BMI 36.0
== END 2024-07-30 10:02 | disposition home or self-care (01) ==
PROVIDERS: PCP Psychiatry & Neurology Neurology; Visit Provider Physician Assistant
DX: N30.01 Acute cystitis with hematuria (principal); Z13.9 Encounter for screening, unspecified; Z32.02 Encounter for pregnancy test, result negative
CPT/HCPCS: 81003; 81025; 99213

== ENCOUNTER 2024-08-17 09:30 | Outpatient (AMB) | payer OTHER, SELFPAY ==
--- NOTE | 2024-08-17 10:03 | MHC.OFFWIV ---
Intake Vital Signs 08/17/24 10:04 Height 5 ft 4 in Weight 208 lb BMI 35.7 BP 102/78 Blood Pressure Location Rt brachial Position Sitting Pulse 91 Pulse Source Pulse Oximeter Temp 97.9 F Temp Source Oral Pulse Oximetry (%) 98 Oxygen Delivery Method Room Air Intake Visit Reasons: EP Ear infection gotten worse on zpak Intake Note: pt c/o LT ear infection. Not improving on Z Hernán. Started 2 weeks ago Patient Tobacco Use Status: Current everyday Tobacco user Allergies amoxicillin [AMOXICILLIN] Allergy (Unknown, Verified 08/17/24 10:04) RASH, rash, swelling, hives sulfamethoxazole [From BACTRIM] Allergy (Unknown, Verified 08/17/24 10:04) HIVES trimethoprim [From BACTRIM] Allergy (Unknown, Verified 08/17/24 10:04) HIVES Do you need a note to return to daycare/school/sports/work: Yes HPI EP Ear infection gotten worse on zpak HPI Details This note is constructed using voice recognition software. While every effort has been made to ensure accuracy, dry press operator helper errors may have been included. The patient is a 34 year old female who presents to the clinic today with ear pressure for the last 2 weeks. She notes that she was recently treated in this clinic for a UTI and placed on antibiotic. She then developed ear pressure and was seen at a different walk-in clinic, and prescribed azithromycin due to her allergy profile, though it did not seem to help her symptoms. She reports that the left more than the right ear feel pressure, some mild pain, some itchiness. She also has some pressure in her eyes, and wakes up in the morning with clearing her throat. She denies fever, chills, cough, shortness of breath, any sick contacts. [facility] Medical History Pacemaker Pain in lower jaw No known health problems Family History Maternal Grandfather Bladder cancer Renal cancer Social History Housing: Apartment Patient Tobacco Use Status: Current everyday Tobacco user e-Cigarette/Vaping Use: Never Used Substance Use Type: Marijuana service: No Current occupational status: employed Cognitive needs: No Hearing needs: No Vision needs: Yes Review of Systems Const All systems reviewed & are unremarkable except as noted in HPI and below Physical Exam Vital Signs: Last Vital Signs Temp 97.9 F 08/17/24 10:04 Pulse 91 08/17/24 10:04 BP 102/78 08/17/24 10:04 Pulse Ox 98 08/17/24 10:04 Oxygen Delivery Method Room Air 08/17/24 10:04 BMI result Body Mass Index 35.7 Const General: cooperative, healthy appearing, comfortable and no acute distress Orientation/consciousness: patient oriented x3 Limitations: no limitations HEENT Head: Yes normal to inspection Ears: hearing grossly normal bilaterally, external ears normal and TM abnormal retracted General nose exam: Normal external nose present, No nasal discharge present and Abnormal mucous membranes and turbinates present boggy and pale Face and sinus: Yes normal facial exam Mouth: Normal oral and palatal mucosa present and moist mucous membranes Throat: Yes tonsils normal, Yes uvula midline, Yes posterior oropharynx abnormal (Erythema), Yes postnasal drainage and Yes cobblestoning Eyes General: appearance normal, both eyes and all related structures Neck Neck: Yes normal visual inspection Resp Effort & Inspection: normal respiratory effort, able to speak in complete sentences, Actively coughing, no respiratory distress, not tachypneic, no tripod positioning and no use of accessory muscles Auscultation: clear to auscultation bilaterally Cardio Rate: regular rate Rhythm: regular rhythm Heart sounds: normal S1 and S2 Skin General skin exam: no rashes or lesions noted Neuro General: patient oriented x3 Extrem General: Yes normal to inspection and Yes no clubbing, cyanosis or edema Assessment & Plan Assessment & Plan (1) Allergic rhinitis: Code(s): J30.9 - Allergic rhinitis, unspecified Qualifiers: Allergic rhinitis trigger: unspecified Allergic rhinitis seasonality: unspecified Qualified Code(s): J30.9 - Allergic rhinitis, unspecified Plan: Supportive measures encouraged and reviewed. Advised patient to try a Flonase nasal spray and second-generation antihistamine such as Zyrtec, Claritin, Cecilia or similar. Advised consideration of sinus rinse if needed. Advised patient to follow up with primary care provider with worsening or failure to resolve. Plan See above for full details and plan. Coding Level of Care Code Est Pt Level 3 (79633) Diagnoses Allergic rhinitis, unspecified seasonality, unspecified trigger J30.9 Allergic rhinitis trigger: unspecified Allergic rhinitis seasonality: unspecified
[2024-08-17 10:04] VITALS: BP 102/78; PULSE 91; TEMP 36.6; O2SAT 98; BMI 35.7
== END 2024-08-17 10:53 | disposition home or self-care (01) ==
PROVIDERS: PCP Internal Medicine; Visit Provider Registered Nurse
DX: J30.9 Allergic rhinitis, unspecified (principal)

== ENCOUNTER → 2024-08-17 09:30 | Outpatient (BNVA) | payer OTHER, SELFPAY | PROVIDERS: PCP Internal Medicine; Visit Provider Internal Medicine | DX: J30.9 Allergic rhinitis, unspecified (principal) | CPT/HCPCS: 99212 ==

== ENCOUNTER 2024-10-19 10:52 | Outpatient (AMB) | payer OTHER, SELFPAY ==
[2024-10-19 11:38] VITALS: BP 130/82; PULSE 97; TEMP 36.2; O2SAT 99; BMI 35.4
--- NOTE | 2024-10-19 11:38 | MHC.OFFWIV ---
Intake Vital Signs 10/19/24 11:38 Height 5 ft 4 in Weight 206 lb 6 oz BMI 35.4 BP 130/82 Blood Pressure Location Lt brachial Position Sitting Pulse 97 Pulse Source Pulse Oximeter Temp 97.2 F Temp Source Temporal Artery Scan Pulse Oximetry (%) 99 Oxygen Delivery Method Room Air Intake Visit Reasons: EP-lt hand thumb pain, lt ear block Intake Note: Pt presents to the office today for left hand thumb pain x2 months with no known injury. Pt states she also has left ear pain and had cold sweats that started yesterday morning. Pt states she was cleaning out her attic saturday evening. Patient Tobacco Use Status: Current everyday Tobacco user Allergies amoxicillin [AMOXICILLIN] Allergy (Unknown, Verified 10/19/24 11:41) RASH, rash, swelling, hives sulfamethoxazole [From BACTRIM] Allergy (Unknown, Verified 10/19/24 11:41) HIVES trimethoprim [From BACTRIM] Allergy (Unknown, Verified 10/19/24 11:41) HIVES HPI HPI Comments History of Present Illness Details Patient is a 34-year-old female here with 2 complaints. First complaint is that her left thumb is very painful, she tells me her family has a history of arthritis and she thinks it is arthritis. She tells me she just went to orthopedics and had some testing done where they ruled out carpal tunnel syndrome. She tells me she does not wear brace at night. She is asking for a cortisone shot. Her 2nd complaint is that she was cleaning out her attic 2 days ago and states that there is a lot of raccoon poop around and got into the air and ever since then she has had a cough, fatigue, left ear pain, subjective fevers and chills as well as a sore throat. She denies any wheezing beyond her baseline of wheezing. She tells me she is a current smoker she denies a history of asthma or COPD. She is eating and drinking normally. She tells me she has tried taking a DayQuil type medication as well as aspirin. She did not test at home for COVID. [facility] Medical History Pacemaker Pain in lower jaw No known health problems Family History Maternal Grandfather Bladder cancer Renal cancer Social History Housing: Apartment Patient Tobacco Use Status: Current everyday Tobacco user e-Cigarette/Vaping Use: Never Used Substance Use Type: Marijuana service: No Current occupational status: employed Cognitive needs: No Hearing needs: No Vision needs: Yes Review of Systems Const All systems reviewed & are unremarkable except as noted in HPI and below Physical Exam Vital Signs: Last Vital Signs Temp 97.2 F 10/19/24 11:38 Pulse 97 10/19/24 11:38 BP 130/82 10/19/24 11:38 Pulse Ox 99 10/19/24 11:38 Oxygen Delivery Method Room Air 10/19/24 11:38 BMI result Body Mass Index 35.4 Const General: cooperative, healthy appearing, comfortable and no acute distress Orientation/consciousness: patient oriented x3 Limitations: no limitations HEENT Head: Yes normal to inspection Ears: hearing grossly normal bilaterally, external ears normal and TM's normal bilaterally General nose exam: Normal external nose present, Normal nares present and No nasal discharge present Face and sinus: Yes normal facial exam and Yes sinuses nontender Mouth: Normal oral and palatal mucosa present and moist mucous membranes Throat: Yes tonsils normal, Yes uvula midline, Yes posterior oropharynx abnormal (Erythema) and Yes cobblestoning Eyes General: appearance normal, both eyes and all related structures Neck Neck: Yes normal visual inspection Resp Effort & Inspection: normal respiratory effort, able to speak in complete sentences, no respiratory distress, not tachypneic, no tripod positioning and no use of accessory muscles Auscultation: clear to auscultation bilaterally Cardio Rate: regular rate Rhythm: regular rhythm Heart sounds: normal S1 and S2 Skin General skin exam: no rashes or lesions noted Neuro General: patient oriented x3 Extrem General: Yes normal to inspection and Yes no clubbing, cyanosis or edema Left upper extremity: hand Details: normal to inspection, normal capillary refill, neuromotor exam normal and abnormal ROM of finger Details: pain with active ROM (abduction) Location: of the thumb and pain with passive ROM (abduction) Location: of the thumb Assessment & Plan Assessment & Plan (1) Pain of left thumb: Code(s): M79.645 - Pain in left finger(s) Plan: Explained to patient that we will get an x-ray today and I can start her on diclofenac, if it does show to be arthritis in the diclofenac does not help, she should contact her PCP for a referral to Orthopedics at that time. (2) Allergic rhinitis due to allergen: Code(s): J30.9 - Allergic rhinitis, unspecified Qualifiers: Allergic rhinitis trigger: other Allergic rhinitis seasonality: non-seasonal Qualified Code(s): J30.89 - Other allergic rhinitis Plan: Her symptoms are likely triggered by all of the dust in the air from cleaning her attic. Recommended starting a daily allergy pill and continuing with the [id number] medication she is taking right now. Plan See above Orders: Orders XR hand LT min 3V Today M79.645 - Pain in left finger(s) Medications: New diclofenac sodium 50 mg PO Q12H PRN 20 tabs 0RF pain Coding Level of Care Code Est Pt Level 4 (21393) Diagnoses Pain of left thumb M79.645 Non-seasonal allergic rhinitis due to other allergic trigger J30.89 Allergic rhinitis trigger: other Allergic rhinitis seasonality: non-seasonal
== END 2024-10-19 13:08 | disposition home or self-care (01) ==
PROVIDERS: PCP Internal Medicine; Visit Provider Physician Assistant
DX: M79.645 Pain in left finger(s) (principal); J30.89 Other allergic rhinitis

== ENCOUNTER 2024-10-19 10:52 | Outpatient (REF) | payer OTHER, SELFPAY ==
--- NOTE | ~2024-10-19 | XR_ITS ---
EXAMINATION: XR HAND, LEFT CLINICAL INFORMATION: M79.645 - Pain in left finger(s) COMPARISON: None available. TECHNIQUE: PA, lateral, and oblique views of the left hand. FINDINGS: The bones and soft tissues are normal. No fracture. Alignment is anatomic. Joint spaces are maintained. No erosions or soft tissue calcifications. XR/XR hand LT min 3V IMPRESSION: Normal left hand. Electronically signed by: Sage De La Cruz MD 10/19/2024 04:24 PM GOYO
== END 2024-10-19 10:53 | disposition home or self-care (01) ==
LOC: HO.HMGCX 10:52
PROVIDERS: PCP Internal Medicine; Visit Provider Physician Assistant
DX: M79.645 Pain in left finger(s) (principal); J30.89 Other allergic rhinitis
CPT/HCPCS: 73130; 99212

== ENCOUNTER 2025-01-01 11:36 | Outpatient (AMB) | payer OTHER, SELFPAY ==
[2025-01-01 11:59] VITALS: BP 118/80; PULSE 94; TEMP 36.6; O2SAT 98; BMI 37.4
--- NOTE | 2025-01-01 11:59 | MHC.OFFWIV ---
Intake Vital Signs 01/01/25 11:59 Height 5 ft 4 in Weight 218 lb BMI 37.4 BP 118/80 Blood Pressure Location Lt brachial Position Sitting Pulse 94 Pulse Source Pulse Oximeter Temp 98 F Temp Source Oral Pulse Oximetry (%) 98 Oxygen Delivery Method Room Air Intake Visit Reasons: EP Migraines/doctor note Patient Tobacco Use Status: Current everyday Tobacco user Allergies amoxicillin [AMOXICILLIN] Allergy (Unknown, Verified 01/01/25 12:00) RASH, rash, swelling, hives sulfamethoxazole [From BACTRIM] Allergy (Unknown, Verified 01/01/25 12:00) HIVES trimethoprim [From BACTRIM] Allergy (Unknown, Verified 01/01/25 12:00) HIVES Medication List - Last Reconciled 01/01/25 by Erlin Boston MD aspirin 162 mg PO DAILY Do you need a note to return to daycare/school/sports/work: Yes HPI EP Migraines/doctor note HPI Details Chief Complaint The patient presents with migraines triggered by 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 History of Present Illness - The patient is a 34-year-old female presenting with migraines. - Migraines are exacerbated by working with a dental scanner, causing bright flashes and subsequent headaches, nausea, and increased sensitivity to light. - Symptom appreciation started in the context of present working conditions, aggravated over the last two days. - interventions like UV protective glasses have been ineffective. - Past medical history includes antiphospholipid syndrome, with current follow-up to ensure no additional autoimmune manifestations. Plan Amitriptyline 10 mg was prescribed to address migraines exacerbated by exposure to dental scanner flashes, with the option to titrate to a higher dose if needed. Review of Systems Neurological: Reports migraine with associated photophobia and nausea. Reproductive: Reports absence of a full menstrual period since October but denies . Musculoskeletal: Reports intermittent leg pain. Endocrine: Denies changes in metabolic rate or appetite. Constitutional: No fever no chills Respiratory: no Cough, no shortness a breath Cardiovascular: no palpitations, no chest pains gastrointestinal: No nausea no vomiting no diarrhea LEGAL PROCESS SPECIALIST: No headache no blurring of vision skin: No rash PFSH Medical History Pacemaker Pain in lower jaw No known health problems Family History Maternal Grandfather Bladder cancer Renal cancer Social History Housing: Apartment Patient Tobacco Use Status: Current everyday Tobacco user e-Cigarette/Vaping Use: Never Used Substance Use Type: Marijuana service: No Current occupational status: employed Cognitive needs: No Hearing needs: No Vision needs: Yes Physical Exam Vital Signs: Last Vital Signs Temp 98 F 01/01/25 11:59 Pulse 94 01/01/25 11:59 BP 118/80 01/01/25 11:59 Pulse Ox 98 01/01/25 11:59 Oxygen Delivery Method Room Air 01/01/25 11:59 BMI result Body Mass Index 37.4 Const General: no acute distress Orientation/consciousness: patient oriented x3 Eyes Other: GM EOMI General: appearance normal, both eyes and all related structures Resp Effort & Inspection: normal respiratory effort and able to speak in complete sentences Neuro Other: Nonfocal General: patient oriented x3 Psych Mental Status: mental status grossly normal Assessment & Plan Assessment & Plan (1) Migraine headache with aura: Code(s): G43.109 - Migraine with aura, not intractable, without status migrainosus Qualifiers: Status migrainosus presence: without status migrainosus Intractability: not intractable Qualified Code(s): G43.109 - Migraine with aura, not intractable, without status migrainosus Plan Chief Complaint The patient presents with migraines triggered by 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 History of Present Illness - The patient is a 34-year-old female presenting with migraines. - Migraines are exacerbated by working with a dental scanner, causing bright flashes and subsequent headaches, nausea, and increased sensitivity to light. - Symptom appreciation started in the context of present working conditions, aggravated over the last two days. - interventions like UV protective glasses have been ineffective. - Past medical history includes antiphospholipid syndrome, with current follow-up to ensure no additional autoimmune manifestations. Plan Amitriptyline 10 mg was prescribed to address migraines exacerbated by exposure to dental scanner flashes, with the option to titrate to a higher dose if needed. Medications: New amitriptyline 10 mg PO BEDTIME 30 tabs 0RF Coding Level of Care Code Est Pt Level 3 (15388) Diagnoses Migraine with aura and without status migrainosus, not intractable G43.109 Status migrainosus presence: without status migrainosus Intractability: not intractable
--- OUTSIDE RECORDS SUMMARY | 2025-01-01 12:18 | XMS_ITS | Clinical Summary ---
Author Organization [facility] Address [address] [place] [address] Care Team Providers Care Painter Helper Sign Name Role Phone Unavailable Primary Care Provider Unavailabl e Medications No known medications Social History Tobacco Use Types Packs/Day Years Used Date Smoking Tobacco: Never Assessed Sex and Gender Information Value Date Recorded Sex Assigned at Female 04/11/2022 10:11 PM EDT Gender Identity Not on file Sexual Orientation Not on file Job Start Date Occupation Industry Not on file Not on file Not on file Last Filed Vital Signs Vital Sign Reading Time Taken Comments Blood Pressure 109/71 04/11/2022 7:56 PM EDT Pulse 80 04/11/2022 7:56 PM EDT Temperature 36.9 ??C (98.4 ??F) 04/11/2022 7:56 PM ED T Respiratory Rate 20 04/11/2022 7:56 PM EDT Oxygen Saturation 99% 04/11/2022 7:56 PM EDT Inhaled Oxygen Concentration - - Weight - - Height - - Body Mass Index - - Plan of Treatment Not on file
--- OUTSIDE RECORDS SUMMARY | 2025-01-01 12:18 | XMS_ITS | Clinical Summary ---
Author Organization [facility] Address [address] [place] [address] Care Team Providers Care Temporary Help Agency Referral Clerk Name Role Phone Unavailable Primary Care Provider Unavailabl e Surgical History Surgery Date Site/Laterality Comments PACEMAKER IMPLANT 1998, 2003, 2009 PROCEDURE: HISTORICAL PACEMAKER CARDIAC SURGERY 2009 PROCEDURE: HISTORICAL HEART SURGERY(ASD,VSD,VALVES); COMMENT: open heart surgery - repair after pacemaker change Medical History Medical History Date Comments Congenital heart block 1988 DX:Congen ital heart block Vision loss of left eye 2009 DX:Visio n loss of left eye; COMMENT: s/p CVA Cardiac surgery H. pylori infection 08/09/2014 DX:H. pylori infection Family History Medical History Relation Name Comments Breast cancer Neg Hx Colon cancer Neg Hx Ovarian cancer Neg Hx Uterine cancer Neg Hx Relation Name Status Comments Father Alive DM. Bipolar, th yroidectomy Maternal Grandfather (Age 64) [place] - bladder, liver, kidney Maternal Grandmother Alive Mother Alive A&W Paternal Grandfather UNKNOWN Paternal Grandmother Alive DM Sister Alive A&W Social History Tobacco Use Types Packs/Day Years Used Date Smoking Tobacco: Every Day Cigarettes Smokeless Tobacco: Never Alcohol Use Standard Drinks/Week Comments Yes 0 (1 standard drink = 0.6 oz pur e alcohol) Sex and Gender Information Value Date Recorded Sex Assigned at Not on file Gender Identity Not on file Sexual Orientation Not on file Obstetrics History Plan of Treatment Health Maintenance Due Date Last Done Comments Pneumococcal Vaccine: Pediat rics (0 to 5 Years) and At-Risk Patients (6 to 64 Years) (1 of 2 - PCV) 1995 Hepatitis B Vaccines (1 of 3 - 19+ 3-dose series) 2008 Cervical Cancer Screening: P ap Smear 2010 Cholesterol Screening (Lipid Panel) 11/10/2022 Depression Screening 11/10/2022 HIV Screening 11/10/2022 Hepatitis C Screening 11/10/2022 Social Influencers of Health Screening 11/10/2022 COVID-19 Vaccine (1 - 2023-2 5 season) 2024 Influenza Vaccine (#1) 2024 DTaP,Tdap,and Td Vaccines (2 - Td or Tdap) 08/09/2024 08/09/2014 HIB Vaccines Aged Out No longer eligi ble based on patient's age to complete this topic HPV Vaccines Aged Out No longer eligi ble based on patient's age to complete this topic Hepatitis A Vaccines Aged Out No long er eligible based on patient's age to complete this topic IPV Vaccines Aged Out No longer eligi ble based on patient's age to complete this topic MMR Vaccines Aged Out No longer eligi ble based on patient's age to complete this topic Meningococcal ACWY Vaccine Aged Out N o longer eligible based on patient's age to complete this topic RSV Immunization Patients Un srinivas 20 months Aged Out No longer eligible b ased on patient's age to complete this topic Varicella Vaccines Aged Out No longer eligible based on patient's age to complete this topic
--- OUTSIDE RECORDS SUMMARY | 2025-01-01 12:18 | XMS_ITS | Clinical Summary ---
Author Organization [facility] Address [address] [place] [address] Care Team Providers Care Infrastructure Engineer Name Role Phone Unavailable Primary Care Provider Unavailabl e Allergies Active Allergy Reactions Criticality Noted Date Comments Amoxicillin Hives Medium 11/18/2021 Medications No known medications Social History Tobacco Use Types Packs/Day Years Used Date Smoking Tobacco: Never Assessed Sex and Gender Information Value Date Recorded Sex Assigned at Not on file Gender Identity Not on file Sexual Orientation Not on file Last Filed Vital Signs Vital Sign Reading Time Taken Comments Blood Pressure 127/75 11/19/2021 2:09 AM EST Pulse 60 11/19/2021 2:09 AM EST Temperature 36.1 ??C (97 ??F) 11/19/2021 2:09 AM EST Respiratory Rate 17 11/18/2021 11:51 PM EST Oxygen Saturation 97% 11/19/2021 2:09 AM EST Inhaled Oxygen Concentration - - Weight - - Height - - Body Mass Index - - Plan of Treatment Health Maintenance Due Date Last Done Comments Hepatitis C Virus Screening 1989 HIV Screening 2002 DTaP/Tdap/Td Vaccines (1 - Tdap) 2008 Hepatitis B Vaccines (1 of 3 - 19+ 3-dose series) 2008 Pap Smear (Ages 21-65) 2010 Influenza Vaccine 07/02/2024 08/31/2016 COVID-19 Vaccine ( - 2023-2 5 season) 2024 HPV Vaccines Aged Out No longer eligi ble based on patient's age to complete this topic Pneumococcal Vaccine: Pediat yakov (0-5 Years) and At-Risk Patients (6 to 49 Years) Aged Out No longer eligible b ased [phone]
== END 2025-01-01 12:08 | disposition home or self-care (01) ==
PROVIDERS: PCP Internal Medicine; Visit Provider Internal Medicine
DX: G43.109 Migraine with aura, not intractable, without status migrainosus (principal)

== ENCOUNTER 2025-01-07 08:11 | Outpatient (AMB) | payer OTHER, SELFPAY ==
--- OUTSIDE RECORDS SUMMARY | 2025-01-07 08:14 | XMS_ITS | Clinical Summary ---
Author Organization [facility] Address [address] [place] [address] Care Team Providers Care Event Manager Name Role Phone Unavailable Primary Care Provider [...] [phone]
--- OUTSIDE RECORDS SUMMARY | 2025-01-07 08:14 | XMS_ITS | Clinical Summary ---
Author Organization [facility] Address [address] [place] [address] Care Team Providers Care Rubber Goods Tester Name Role Phone Unavailable Primary Care Provider [...]
--- NOTE | 2025-01-07 09:43 | A.OFFPC_ITS ---
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 History of Present Illness - The patient is a 34-year-old female pr esenting with migraines. - Migraines are exacerbated by working w ith a dental scanner, causing bright flashes and subsequent headaches, nausea, and increased sensitivity to light. - Symptom appreciation started in the co ntext of present working conditions, aggravated over the last two days. - interventions like UV protective glas ses have been ineffective. she was started on amitryptyline 10 mg last visit her KHAN has resolved no side effect from medication Patient Instructions - Continue taking the prescribed medicat ion once every night. . Review of Systems - General: No fever no chills - Neurological: No headaches no dizziness - Ear nose throat: No sore throat no hearing difficulty no ear pain - Cardiovascular: No syncope, no chest pain, no palpitations - Gastrointestinal: No nausea vomiting or diarrhea - Endocrine: No polyuria polydipsia no heat intolerance - Genitourinary: No dysuria , no blood in urine [facility] Medical History Pacemaker Pain in lower jaw No known health problems Family History Maternal Grandfather Bladder cancer Renal cancer Social History Housing: Apartment Patient Tobacco Use Status: Current everyday Tobacco user e-Cigarette/Vaping Use: Never Used Substance Use Type: Marijuana service: No Current occupational status: employed Cognitive needs: No Hearing needs: No Vision needs: Yes Questionnaire Thrive Questionnaire Date Thrive assessed: 03/07/23 ROSCOE-7 AMB Questionnaire ROSCOE-7 Date ROSCOE - 7 assessed: 12/11/23 Source: Developed by Drs. Giorgi Ventura, Graciela Shahid, Estuardo Paiz and colleagues, with an educational paddy from [employer]. Physical exam (Primary Care) Tobacco/Smoking Status: Tobacco use Status Tobacco use date assessed 05/13/24 05/13/24 09:34 Patient Tobacco Use Status Current everyday Tobacco 01/01/25 12:00 e-Cigarette/Vaping Use Never Used 05/13/24 09:28 Thrive Assessment: Date of Thrive Assessment Date Thrive assessed 03/07/23 05/13/24 09:28 Telehealth Telehealth Telehealth Platform: [employer] [place] Location of provider rendering services: practice address Location of patient: address on file Patient Identification confirmed using: Name, : Yes Telehealth method: voice only Patient verbally consented to treatment: Yes Patient verbally consented to billing insurance company: Yes Patient informed of any privacy concerns related to visit: Yes Minutes spent on Phone/Video with Pt.: 13 Coding Level of Care Code Tele Est Pt Level 3 (82112) Diagnoses Migraine with aura and without status migrainosus, not intractable G43.109 Status migrainosus presence: without status migrainosus Intractability: not intractable Assessment & Plan Assessment & Plan (1) Migraine headache with aura: Code(s): G43.109 - Migraine with aura, not intractable, without status migrainosus Category: Medical Qualifiers: Status migrainosus presence: without status migrainosus Intractability: not intractable Qualified Code(s): G43.109 - Migraine with aura, not intractable, without status migrainosus Plan Chief Complaint The patient presents with migraines triggered by 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 History of Present Illness - The patient is a 34-year-old female presenting with migraines. - Migraines are exacerbated by working with a dental scanner, causing bright flashes and subsequent headaches, nausea, and increased sensitivity to light. - Symptom appreciation started in the context of present working conditions, aggravated over the last two days. - interventions like UV protective glasses have been ineffective. she was started on amitryptyline 10 mg last visit her KHAN has resolved no side effect from medication Patient Instructions - Continue taking the prescribed medication once every night. Medications: Refilled amitriptyline 10 mg PO BEDTIME 90 tabs 1RF
== END 2025-01-07 09:57 | disposition home or self-care (01) ==
LOC: HO.HMCC 08:11
PROVIDERS: PCP Internal Medicine; Visit Provider Internal Medicine
DX: G43.109 Migraine with aura, not intractable, without status migrainosus (principal)

== ENCOUNTER 2025-02-03 10:04 | Outpatient (AMB) | payer OTHER, SELFPAY ==
--- NOTE | 2025-02-03 10:05 | AM.OFFWIN_ITS ---
Intake Vital Signs 02/03/25 10:06 Weight 220 lb BP 122/78 Blood Pressure Location Lt brachial Position Sitting Pulse 95 Pulse Source Pulse Oximeter Pulse Oximetry (%) 99 Oxygen Delivery Method Room Air Intake Visit Reasons: EP Fall on ice (no WC) rt side hip/ankle/shoulder Intake Note: Patient here for right shoulder, hip and ankle pain after she slipped on ice this morning. Patient Tobacco Use Status: Current everyday Tobacco user Allergies amoxicillin [AMOXICILLIN] Allergy (Unknown, Verified 02/03/25 10:07) RASH, rash, swelling, hives sulfamethoxazole [From BACTRIM] Allergy (Unknown, Verified 02/03/25 10:07) HIVES trimethoprim [From BACTRIM] Allergy (Unknown, Verified 02/03/25 10:07) HIVES Medication List - Last Reconciled 02/03/25 by Erlin Boston MD amitriptyline 10 mg PO BEDTIME aspirin 162 mg PO DAILY Do you need a note to return to daycare/school/sports/work: Yes HPI EP Fall on ice (no WC) rt side hip/ankle/shoulder HPI Details CC fall joint injuries - The patient is a 34-year-old female pr esenting after a fall resulting in multiple pain complaints and possible injuries. - The fall occurred when the patient sli pped on ice this morning, leading to an impact primarily on the right side. - She reports intermittent headaches and neck pain with notable tenderness and expects worsening of symptoms. - The patient describes her right should er pain - Pain in the lumbar spine and right hip was noted by the patient. - Weakness in the right leg was describe d, particularly when trying to stand post-fall. - Right ankle swelling mild with difficu lty walking due to pain - The patient's vision is reportedly eliseo ffected, and there's no persistent nausea. Headache has improved since the fall Problem List - Head trauma - Cervical pain - Right shoulder pain - Lumbar spine pain - Right hip pain - Right leg weakness - Right ankle swelling Patient Instructions - Take prescribed nonsteroidal anti-infl ammatory medication and muscle relaxers as directed. - Use Tramadol for pain relief as needed and as prescribed. Only at night - Avoid work for the next three days to allow for recovery: No activities on Saturday, , and Saturday. - Schedule a follow-up appointment on [place] at 2 PM. - Seek immediate care if symptoms worsen or new symptoms develop. - did not go to emergency room, at this point patient is alert awake oriented and headache has gotten better patient is intact I think we can get the x-rays done give her medication and if her symptoms get worse or she started having nausea patient is to go back to emergency room Review of Systems - General: No fever no chills - Neurological: no dizziness - Ear nose throat: No sore throat no hearing difficulty no ear pain - Cardiovascular: No syncope, no chest pain, no palpitations - Gastrointestinal: No vomiting or diarrhea - Endocrine: No polyuria polydipsia no heat intolerance - Genitourinary: No dysuria , no blood in urine - no bowel complaints Physical Exam General: No acute distress HEENT: Tenderness on the right side of the pentecostal, no acute findings Neck: Stiff and sore, supple Respiratory system: Able to talk in full sentences, no audible wheeze cardiovascular: S1-S2 regular in rate and rhythm Gastrointestinal: No pain Extremities: Right shoulder pain exam is difficult because of pain, right hip pain, right ankle swelling ankle exam was difficult because of pain 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 ARCHITECT: Alert awake oriented x3 motor sensory intact, radiating pins and needles in both hands, DTR equal, patient is able to walk without falling but limping little because of the ankle pain Skin: Normal turgor PFSH Medical History Pacemaker Pain in lower jaw No known health problems Family History Maternal Grandfather Bladder cancer Renal cancer Social History Housing: Apartment Patient Tobacco Use Status: Current everyday Tobacco user e-Cigarette/Vaping Use: Never Used Substance Use Type: Marijuana service: No Current occupational status: employed Cognitive needs: No Hearing needs: No Vision needs: Yes Physical Exam Vital Signs: Last Vital Signs Pulse 95 02/03/25 10:06 BP 122/78 02/03/25 10:06 Pulse Ox 99 02/03/25 10:06 Oxygen Delivery Method Room Air 02/03/25 10:06 Assessment & Plan Assessment & Plan (1) Fall from slipping on ice: Code(s): W00.9XXA - Unspecified fall due to ice and snow, initial encounter Qualifiers: Encounter type: initial encounter Qualified Code(s): W00.9XXA - Unspecified fall due to ice and snow, initial encounter (2) Head injury due to trauma: Code(s): S09.90XA - Unspecified injury of head, initial encounter Qualifiers: Encounter type: initial encounter Qualified Code(s): S09.90XA - Unspecified injury of head, initial encounter (3) Neck pain: Code(s): M54.2 - Cervicalgia (4) Shoulder pain, right: Code(s): M25.511 - Pain in right shoulder Qualifiers: Chronicity: acute Qualified Code(s): M25.511 - Pain in right shoulder (5) Lumbar pain: Code(s): M54.50 - Low back pain, unspecified (6) Knee pain, right: Code(s): M25.561 - Pain in right knee Qualifiers: Chronicity: acute Qualified Code(s): M25.561 - Pain in right knee (7) Ankle pain, right: Code(s): M25.571 - Pain in right ankle and joints of right foot Qualifiers: Chronicity: acute Qualified Code(s): M25.571 - Pain in right ankle and joints of right foot Plan CC fall joint injuries - The patient is a 34-year-old female presenting after a fall resulting in multiple pain complaints and possible injuries. - The fall occurred when the patient slipped on ice this morning, leading to an impact primarily on the right side. - She reports intermittent headaches and neck pain with notable tenderness and expects worsening of symptoms. - The patient describes her right shoulder pain - Pain in the lumbar spine and right hip was noted by the patient. - Weakness in the right leg was described, particularly when trying to stand post-fall. - Right ankle swelling mild with difficulty walking due to pain - The patient's vision is reportedly unaffected, and there's no persistent [place] sea. Headache has improved since the fall Problem List - Head trauma - Cervical pain - Right shoulder pain - Lumbar spine pain - Right hip pain - Right leg weakness - Right ankle swelling Patient Instructions - Take prescribed nonsteroidal anti-inflammatory medication and muscle relaxers as directed. - Use Tramadol for pain relief as needed and as prescribed. Only at night - Avoid work for the next three days to allow for recovery: No activities on Saturday, , and Saturday. - Schedule a follow-up appointment on Saturday at 2 PM. - Seek immediate care if symptoms worsen or new symptoms develop. - did not go to emergency room, at this point patient is alert awake oriented and headache has gotten better patient is intact I think we can get the x-rays done give her medication and if her symptoms get worse or she started having nausea patient is to go back to emergency room More than 45 minute visit including revision of x-ray reports Orders: Orders XR cervical spine 2V Today M25.511 - Pain in right shoulder, M25.561 - Pain in right knee, M25.571 - Pain in right ankle and joints of right foot, M54.2 - Cervicalgia, M54.50 - Low back pain, unspecified, S09.90XA - Unspecified injury of head, initial encounter, W00.9XXA - Unspecified fall due to ice and snow, initial encounter XR shoulder RT min 2V Today M25.511 - Pain in right shoulder, M25.561 - Pain in right knee, M25.571 - Pain in right ankle and joints of right foot, M54.2 - Cervicalgia, M54.50 - Low back pain, unspecified, S09.90XA - Unspecified injury of head, initial encounter, W00.9XXA - Unspecified fall due to ice and snow, initial encounter XR hip RT min 2V Today M25.511 - Pain in right shoulder, M25.561 - Pain in right knee, M25.571 - Pain in right ankle and joints of right foot, M54.2 - Cervicalgia, M54.50 - Low back pain, unspecified, S09.90XA - Unspecified injury of head, initial encounter, W00.9XXA - Unspecified fall due to ice and snow, initial encounter XR knee RT 2V Today M25.511 - Pain in right shoulder, M25.561 - Pain in right knee, M25.571 - Pain in right ankle and joints of right foot, M54.2 - Cervicalgia, M54.50 - Low back pain, unspecified, S09.90XA - Unspecified injury of head, initial encounter, W00.9XXA - Unspecified fall due to ice and snow, initial encounter XR ankle RT 2V Today M25.511 - Pain in right shoulder, M25.561 - Pain in right knee, M25.571 - Pain in right ankle and joints of right foot, M54.2 - Cervicalgia, M54.50 - Low back pain, unspecified, S09.90XA - Unspecified injury of head, initial encounter, W00.9XXA - Unspecified fall due to ice and snow, initial encounter XR lumbar spine 2-3V Today M25.511 - Pain in right shoulder, M25.561 - Pain in right knee, M25.571 - Pain in right ankle and joints of right foot, M54.2 - Cervicalgia, M54.50 - Low back pain, unspecified, S09.90XA - Unspecified injury of head, initial encounter, W00.9XXA - Unspecified fall due to ice and snow, initial encounter Medications: New diclofenac sodium 75 mg PO BID 20 tabs 0RF pain 10 days cyclobenzaprine 10 mg PO TID 21 tabs 0RF 7 days tramadol 50 mg PO BEDTIME 7 tabs 0RF 7 days Coding Level of Care Code Est Pt Level 5 (15722) Diagnoses Fall due to slipping on ice or snow, initial encounter W00.9XXA Encounter type: initial encounter Traumatic injury of head, initial encounter S09.90XA Encounter type: initial encounter Neck pain M54.2 Acute pain of right shoulder M25.511 Chronicity: acute Lumbar pain M54.50 Acute pain of right knee M25.561 Chronicity: acute Acute right ankle pain M25.571 Chronicity: acute
[2025-02-03 10:06] VITALS: BP 122/78; PULSE 95; O2SAT 99
--- OUTSIDE RECORDS SUMMARY | 2025-02-03 11:51 | XMS_ITS | Clinical Summary ---
Author Organization [facility] Address [address] [place] [address] Care Team Providers Care Health Advocate Name Role Phone Unavailable Primary Care Provider [...] drink = 0.6 oz pur e alcohol) Comments Unknown Sex and Gender Information Value Date Recorded Sex Assigned at Not on file Legal Sex Female 8:26 AM EST Gender Identity Not on file Sexual Orientation Not on file Obstetrics History Plan of Treatment Health Maintenance Due Date Last Done Comments Hepatitis B Vaccines (1 of 3 - 19+ 3-dose series) 2008 Pneumococcal Vaccine: Pediat rics (0 to 5 Years) and At-Risk Patients (6 to 64 Years) (1 of 2 - PCV) 2008 Cervical Cancer Screening: P ap Smear [...] patient's age to complete this topic Meningococcal B Vacine Aged Out No lo nger eligible based on patient's age to complete this topic RSV Immunization Patients Un srinivas 20 months Aged Out No longer eligible b ased on patient's age to complete this topic Varicella Vaccines Aged Out No longer eligible based on patient's age to complete this topic
--- OUTSIDE RECORDS SUMMARY | 2025-02-03 11:51 | XMS_ITS | Clinical Summary ---
Author Organization [facility] Address [address] [place] [address] Care Team Providers Care Slate Roofer Helper Name Role Phone Unavailable Primary Care Provider [...] [place]'s [phone]
--- OUTSIDE RECORDS SUMMARY | 2025-02-03 11:51 | XMS_ITS | Data Portability ---
Author Organization [facility], [facility] Address [address] [facility], [address] [address] Care Team Providers Care Pluck Trimmer Name Role Phone JURADO, BRANDON Primary Care Provider Assessment Encounter Date Assessment Date Assessment LastModified by Organization Details LastModified Time 11/01/2020 11/01/2020 See electronic result received. [email or web address] Not available 11/01/2020 10:10:12 Plan of Treatment Reminders Order Date Submit Date Provider Last Modified By Organization Details Last Modified Time Details Appointments None recorded. Lab test, urine 2019 020 [facility], [address] [place] [address], [address], 0 10:10:26 pap, LB + HR HPV + reflex HPV (16+18) 2019 020 [facility], [place], [address], 0 14:30:07 HIV 1+2 Ab + HIV1 p24 Ag, quantitativ e immunoassay , serum 2019 020 [facility], [place], [address], 1 05:02:01 RPR (rapid plasma reagin), serum 2019 020 [employer], [address], [place], [address], 1 05:02:01 HBsAg (hepatitis B surface Ag), serum 2019 [facility], [address], [place], [address], 1 05:02:26 hepatitis C virus Ab, serum 2019 [facility], [address], [place], [address], 05:02:23 CT + NG RNA, PCR, unspecified specimen - cervical 2019 [facility], [place], [address], 0 14:30:10 test, urine 2018 019 [email or web address] In-Office Order, Internal Use Only DO Not Attach Compendium DO Not Attach Compendium, Do Not Delete/merge, [id number] 9 17:54:01 biopsy, endocervica l 2018 019 [facility], [address] [facility], [address], [address], 9 16:57:57 biopsy, cervical 2018 019 [facility], [address], Suite [facility], [place], [address], 9 16:57:57 test, urine 2018 019 [email or web address] In-Office Order, Internal Use Only DO Not Attach Compendium DO Not Attach Compendium, Do Not Delete/merge, [id number] 10:36:04 pap, IG + HPV mRNA E6/E7 + reflex HPV (16+18+45) 2018 019 [place], [address] [facility], [address], [place], [address], 9 11:04:57 Referral None recorded. Procedures None recorded. Surgeries None recorded. Imaging US, breast, unilateral, complete - upper outer quadrant @10-11 o'clock, 2-3 cm from nipple, semi-firm, smooth, moveable and non-tender 2019 020 [facility], [address] [place], [address], 1 05:02:09 US, breast 2018 019 [facility], [address] [place], [address], 0 05:01:13 Medication Orders None recorded. Patient TargetsNo targets recorded. Patient Instructions Encounter Date Encounter Id Patient Instructions Last Modified By Organization Details Last Modified Time 03/23/2019 [id number] Quitting Tobacco : Care Instructions [email or web address] Not available 03/23/2019 12:33:05 breast lumps: care instructions [email or web address] Not available 03/23/2019 10:42:20 body mass index: care instructions [email or web address] Not available 03/23/2019 12:33:05 learning about healthy weight [email or web address] Not available 03/23/2019 12:33:05 Preceptor Note I have reviewed the patient encounter with the resident. Resident name: Dr. Sandy I have reviewed the history, physical findings, assessment and plan of the resident. We have completely discussed all aspects of the encounter. [email or web address] Not available 03/23/2019 11:43:34 06/03/2019 [id number] abnormal Pap test: care instructions [email or web address] Not available 06/03/2019 10:56:02 colposcopy: before your procedure [email or web address] Not available 06/03/2019 10:56:02 I have examined and reviewed the patient encounter with the resident. Resident name: Dr. Wells I have reviewed the history, physical findings, assessment and plan of the resident. We have completely discussed all aspects of the encounter. Comments: [email or web address] Not available 06/03/2019 11:49:26 09/03/2019 [id number] learning about stress [email or web address] Not available 09/03/2019 17:54:01 coping with stress education [email or web address] Not available 09/03/2019 17:54:01 stress reducers [email or web address] Not available 09/03/2019 17:54:01 Preceptor Note I have reviewed the patient encounter with the resident, Dr. Maryam Sandy I have reviewed the history, physical findings, assessment and plan of the resident. We have completely discussed all aspects of the encounter. [email or web address] Not available 09/03/2019 14:20:24 09/01/2020 [id number] abnormal Pap test: care instructions Not available 09/01/2020 10:50:22 Well Visit, Ages 18 to 65: Care Instructions [email or web address] Not available 09/01/2020 10:50:22 learning about natural family planning [email or web address] Not available 09/01/2020 10:50:22 safer sex: care instructions [email or web address] Not available 09/01/2020 10:50:22 breast self-exam : care instructions Not available 09/01/2020 10:50:22 learning about sun damage and your skin [email or web address] Not available 09/01/2020 10:50:22 learning about depression [email or web address] Not available 09/01/2020 10:50:22 Reason for Referral None Reported. Results Created Date Observation Date Name Description Value Unit Range Abnormal Flag Note LastModifiedBy Organization Detail LastModifiedTime 09/03/20 19 09/03/2019 pregn claudia test, urine Unknown Analyte negati ve Not Available In-Office Order Internal Use Only DO Not Attach Compendium DO Not Attach Compendium, Do Not Delete/merge, [id number] 09/03/2019 14:11:11 03/23/20 19 03/23/2019 pregn claudia test, urine POC urine NEGATI VE . negati ve Not Available [facility] [address] [place], [address], 03/23/2019 10:25:12 06/05/20 19 05/06/2019 pregn claudia test, urine Unknown Analyte negati ve Not Available In-Office Order Internal Use Only DO Not Attach Compendium DO Not Attach Compendium, Do Not Delete/merge, [id number] 03/23/2019 10:22:36 06/03/20 19 06/03/2019 pregn claudia test, urine POC urine NEGATI VE . negati ve Not Available [facility] [address] [place], [address], 06/03/2019 10:05:35 09/03/20 19 09/03/2019 pregn claudia test, urine POC urine NEGATI VE . negati ve Not Available [facility] [address] [place], [address], 09/03/2019 14:37:41 09/01/20 20 09/08/2020 pap, LB + HR HPV + refle x HPV (16+1 8) clinical information: None given normal Not Available [facility] [place], [address], 09/08/2020 14:30:07 09/01/20 20 09/08/2020 pap, LB + HR HPV + refle x HPV (16+1 8) LMP: [id number] 20 normal Not Available [facility] [facility] [place], [address], 09/08/2020 14:30:07 09/01/20 20 09/08/2020 pap, LB + HR HPV + refle x HPV (16+1 8) prev. Pap: [id number] 19 ASCUS HR HPV POSTIV E normal Not Available [facility] [place], [address], 09/08/2020 14:30:07 09/01/20 20 09/08/2020 pap, LB + HR HPV + refle x HPV (16+1 8) prev. BX: None given normal Not Available [facility] [place], [address], 09/08/2020 14:30:07 09/01/20 20 09/08/2020 pap, LB + HR HPV + refle x HPV (16+1 8) source: Cervix , Endoce rvix normal Not Available [facility] [address] [place], [address], 09/08/2020 14:30:07 09/01/20 20 09/08/2020 pap, LB + HR HPV + refle x HPV (16+1 8) statement of adequacy: normal Satis facto ry for evalu ation . Endoc ervic al/tr ansfo rmati on zone compo nent prese nt. Not Available [facility] [address] [place], [address], 09/08/2020 14:30:07 09/01/20 20 09/08/2020 pap, LB + HR HPV + refle x HPV (16+1 8) general categorizati on: EPITHE LIAL CELL ABNORM ALITY abnormal Not Available [facility] [address] [place], [address], 09/08/2020 14:30:07 09/01/20 20 09/08/2020 pap, LB + HR HPV + refle x HPV (16+1 8) interpretati on/result: Low Grade Squamo us Intrae pithel ial Lesion (LSIL) abnormal Not Available [facility] [address] [place], [address], 09/08/2020 14:30:07 09/01/20 20 09/08/2020 pap, LB + HR HPV + refle x HPV (16+1 8) cytotechnolo gist: normal LAS, CT (ASCP ) CT scree barrera locat ion: [facility] [address] [place] [address] Not Available [facility] [address] [place], [address], 09/08/2020 14:30:07 09/01/20 20 09/08/2020 pap, LB + HR HPV + refle x HPV (16+1 8) pathologist: normal Markun stephanie french MD (elec troni c signa ture) Board Certi fied in [facility] Patho logy Not Available [address] [place], [address], 09/08/2020 14:30:07 09/01/20 20 09/08/2020 pap, LB + HR HPV + refle x HPV (16+1 8) comment EXPLA NATOR Y NOTE: The Pap is a scree barrera test for cervi kai cance r. It is not a diagn ostic test and is subje ct to false negat montrell and false posit montrell resul ts. It is most relia ble when a satis facto ry sampl e, regul deloris obtai shy, is submi tted with relev ant clini kai findi ngs and histo ry, and when the Pap resul t is evalu ated along with histo yakov and curre nt clini kai infor matio n. Not Available [address] [place], [address], 09/08/2020 14:30:07 09/01/2009/08/2020 pap, LB + HR HPV + refle x HPV (16+1 8) HPV DNA, high risk, cervical Detect ed not detect ed abnormal Detec shey One or more High Risk HPV types (16,1 8,31, 33, 35,39 ,45,5 1,52, 56,58 ,59,6 6,68) was detec shey. Metho dolog y: Real Time PCR Not Available [address] [place], [address], 09/08/2020 14:30:07 09/01/2009/08/2020 CT + NG RNA, PCR, unspe cifie d speci men chlamydia trachomatis RNA, tma, urogenital NOT DETECT ED not detect ed normal Not Available [address] [place], [address], 09/08/2020 14:30:10 09/01/20 20 09/08/2020 CT + NG RNA, PCR, unspe cifie d speci men neisseria gonorrhoeae RNA, tma, urogenital NOT DETECT ED not detect ed normal Not Available [facility] [address] [place], [address], 09/08/2020 14:30:10 09/01/20 20 09/08/2020 CT + NG RNA, PCR, unspe cifie d speci men comment The jennifer tical perfo rmanc e damaris cteri stics of this assay , when used to test SureP ath(T M) speci mens have been deter mined by [facility]. The modif icati ons have not been clear ed or appro jeffy by the FDA. This assay has been valid ated pursu ant to the CLIA regul ation s and is used for clini kai purpo ses. For addit ional infor nidia hill e refer to https ://ed ucati on.qu estLeversense. MiMedia/f aq/FA Q154 (This link is being provi ded for infor yaima cam/ educa garrett l purpo ses only. ) Not Available [facility] [address] [place], [address], 09/08/2020 14:30:10 11/01/20 20 11/01/2020 pregn claudia test, urine POC urine NEGATI VE . negati ve Not Available [address], [address], 11/01/2020 09:06:43 Result Notes None recorded. Problems No Known Problems Procedures Surgical History Date Name Laterality Status Provider Name and Address Organization Details Recorded Time 09/01/20 Nursing Points - Established Patient Level 3 completed Lyudmila Newberry [facility] 09/01/2020 10:04:59 09/03/20 Nursing Points - Established Patient Level 3 completed Emilee King [facility] 09/03/2019 14:10:14 06/03/20 19 Colposcopy completed Renuka Wells [facility] 06/03/2019 11:42:40 06/03/20 19 Nursing Points - Established Patient Level 3 completed Emilee King [facility] 06/03/2019 10:03:33 06/03/20 19 Colposcopy completed Lyudmila Rohith [facility] 09/01/2020 09:54:18 03/24/20 19 Date of Last Pap Smear completed Lyudmila Newberry [facility] 09/01/2020 09:53:52 03/23/20 19 Nursing Points - Established Patient Level 3 completed Eileen Grigsby [facility] 03/23/2019 09:47:08 12/02/19 19 Dilation and Curettage completed Lyudmila Newberry [facility] 09/01/2020 10:02:11 03/21/20 18 Nursing Points - Established Patient Level 3 completed Emilee King [facility] 03/21/2018 13:23:42 03/07/20 18 Nursing Points - Established Patient Level 3 completed Eileen Grigsby [facility] 03/07/2018 13:52:31 12/02/19 11 open heart surgery completed Solange Sandy MD [address] [place] [address], [id number] [place] [address] 03/23/2019 10:59:29 Imaging Results None recorded. Procedure Notes None recorded. Medical Equipment None Reported. Allergies Allergen ID Allergen Name Allergen Category Reaction Reaction Severity Criticality Documentation Date Start Date Code Code System Note Provider Name and Address Organization Details Recorded Time 04506 amoxicill in medicatio n rash severe Not available 03/07/2018 723 RxNorm Eileen Donald [facility] 8 13:50:15 Medications Name Sig Start Date Stop Date Status Note LastModified by Organization Details LastModified Time neomycin-polym yxin-hydrocort 3.5 mg/mL-10,000 unit/mL-1 % ear solution 06/03 completed Not Available Not Available Not Available clindamycin HCl 300 mg capsule 03/07 completed Not Available Not Available Not Available benzonatate 200 mg capsule 03/23 completed Not Available Not Available Not Available clarithromycin 500 mg tablet 09/01 completed Not Available Not Available Not Available ondansetron HCl 4 mg tablet 09/01 completed Not Available Not Available Not Available topiramate 25 mg tablet active Not Available Not Available No t Available sulfamethoxazo le 800 mg-trimethopri m 160 mg tablet active Not Available Not Available Not Available bupropion HCl 100 mg tablet 06/03 completed Not Available Not Available Not Available IBU 600 mg tablet 09/01 completed Not Available Not Available Not Available prednisone 50 mg tablet 09/01 completed Not Available Not Available Not Available levofloxacin 750 mg tablet 03/23 completed Not Available Not Available Not Available methylpredniso lone 4 mg tablets in a dose pack 03/07 completed Not Available Not Available Not Available fluticasone propionate 50 mcg/actuation nasal spray,suspensi on 09/01 completed Not Available Not Available Not Available Ventolin HFA 90 mcg/actuation aerosol inhaler active indicat ion: asthma Not Available Not Available Not Available escitalopram 10 mg tablet 09/01 completed Not Available Not Available Not Available Boostrix Tdap 2.5 Lf unit-8 mcg-5 Lf/0.5 mL intramuscular syringe 09/01 completed Not Available Not Available Not Available 12 Hour Decongestant ER 120 mg tablet,extende d release 09/01 completed Not Available Not Available Not Available 28 mg iron-800 mcg tablet 03/07 completed Not Available Not Available Not Available Vitals Date Recorded Body height Heart rate Body mass index (BMI) Body weight Systolic blood pressure Diastolic blood pressure Provider Name and Address Organization Details Last Updated DateTime 0 162.56 cm 83 /min 33.3 kg/m2 20690.9 2 g 123 mm[Hg] 67 mm[Hg] Edda Owen [facility] 0 09:33:20 Date Recorded Heart rate Body weight Body mass index (BMI) Body height Systolic blood pressure Diastolic blood pressure Provider Name and Address Organization Details Last Updated DateTime 9 64 /min 55890.9 9 g 36.2 kg/m2 162.56 cm 95 mm[Hg] 46 mm[Hg] Dea Al [facility] 9 09:37:22 Date Recorded Body height Heart rate Body mass index (BMI) Body weight Systolic blood pressure Diastolic blood pressure Provider Name and Address Organization Details Last Updated DateTime 9 162.56 cm 76 /min 35.7 kg/m2 84698.2 1 g 118 mm[Hg] 70 mm[Hg] Dea Griffithmonica [facility] 9 09:46:13 Date Recorded Body height Body mass index (BMI) Body weight Heart rate Systolic blood pressure Diastolic blood pressure Provider Name and Address Organization Details Last Updated DateTime 9 162.56 cm 35.7 kg/m2 57144.2 1 g 70 /min 130 mm[Hg] 62 mm[Hg] Hilary Mik Montalvo [facility] 9 13:44:22 Social History Question Answer Notes LastModified by Organizat ion Details LastModified Time Tobacco Smoking Status Current Every Day [facility]2020 09:58:17 Do You Have An Advance Directive? No Educated Information not available 09/01/2020 What Is Your Level Of Alcohol Consumption? Occasional Information not available 06/03/2019 Is Blood Transfusion Acceptable In An Emergency? Yes Information not available 09/01/2020 What Is Your Level Of Caffeine Consumption? Occasional Coffee 3 Cups/ Week Information not available 09/01/2020 How Much Tobacco Do You Chew? 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 REGULAR Information not available 09/01/2020 Which Illicit Or Recreational Drugs Have You Used? Occasional Marijuana Information not available 09/01/2020 Drugs Abused Denies Information not available 09/01/2020 Do You Or Have You Ever Used E-cigarettes Or Vape? Never Used Electronic Cigarettes Information not available 09/03/2019 Education 4 Year College Information not available 09/01/2020 What Is Your Occupation? Unemployed, With No Work Experience In The Last 5 Years Or Earlier Or Never Worked [email or web address] Information not available 11/01/2020 How Many Days In The Past Year Have You Had A Heavy Drinking Consumption (4+ Female, 5+ Male)? 2 Information not available 09/01/2020 Live Alone Or With Others? With Others Boyfriend And Child Information not available 09/01/2020 Preferred Language Ecuadorean Information not available 06/03/2019 Language(s) Spoken At Home Ecuadorean Information not available 09/01/2020 Barriers Noted No Informatio n not available 06/03/2019 Emotional State Denies Depression Denies Harmful Thoughts Information not available 03/07/2018 Cultural Barrier No Information not available 06/03/2019 Hearing Intact Yes Informatio n not available 09/01/2020 Language Barrier No Information not available 06/03/2019 Language(s) Understood Ecuadorean Information not available 09/01/2020 Literacy Barrier No Information not available 06/03/2019 Memory Intact Yes Information not available 09/01/2020 Physical Limitations No Information not available 09/01/2020 Vision Intact Yes Information not available 09/01/2020 Immunization Screening Performed Yes Information not available 09/01/2020 Are You Now Or Have You Ever Been In A Relationship Where You Were Physically Hurt, Threatened, Or Made To Feel Afraid? No Information not available 03/07/2018 History Of Varicella Yes Information not available 09/01/2020 [facility] Requested In Exam Room No Male/ Female Consent Signed And Reviewed Information not available 09/01/2020 What Was The Date Of Your Most Recent Tobacco Screening? 09/01/2020 Information not available 09/01/2020 How Many Children Do You Have? 1 Information not available 03/23/2019 What Is Your Current Pack Years? 10-19packyear s Information not available 09/01/2020 Performs Monthly Self-breast Exam? Yes Information not available 09/01/2020 Do You Use Protection During Sex? No Information not available 09/01/2020 What Is Your Relationship Status? Single Information not available 09/01/2020 Seat Belts Used Routinely No Educated Information not available 09/01/2020 Are You Sexually Active? Yes Information not available 09/01/2020 Do You Or Have You Ever Used Smokeless Tobacco? Never Used Smokeless Tobacco Information not available 09/01/2020 How Much Tobacco Do You Smoke? 0.5 PPD Information not available 09/01/2020 General Stress Level High Information not available 09/01/2020 Do You Use Sunscreen Routinely? No Educated Information not available 09/01/2020 On What Date Was Tobacco Cessation Counseling Provided? 09/01/2020 Information not available 09/01/2020 How Many Years Have You Smoked Tobacco? 14 Information not available 09/01/2020 Sex: Unknown Functional Status Question Answer Note LastModified by Organizat ion Details LastModified Time Urinary incontinence assessment performed? No Information not available 09/01/2020 Are you able to walk? YESWOREST Information not available 09/01/2020 What is your exercise level? Moderate jogs or gym Information not available 09/01/2020 Mental Status None recorded. Family History Relationship Description Onset Age of this Age Resolved Age Notes LastModified by Organization Details LastModified Time Mother No current problems or disability [email or web address] Not available 03/07 13:51:24 Maternal Grandfather Neoplasm of urinary bladder Not available 2019 09:55:58 Father Family history of Thyroid disorder had surger y shortl y afer [email or web address] Not available 09/01/2020 12:07:21 Medical History Condition Response Asthma Y Heart Disease Y Gynecological History Statement/Question Response Family Planning History None Genital warts N 1st Delivery Date 12/02/2014 Flow Moderate Date of LMP 08/19/2020 Hepatitis N STIs/STDs N HIV N 2nd Delivery Date 09/01/2017 Chlamydia N HPV Y Pelvic inflammatory disease (PID) N Abnormal Pap Y Syphilis N 1st - Delivery Type Vaginal On BCP's at Conception? N Gonorrhea N 3rd Delivery Date 03/11/2018 Colposcopy 06/03/2019 HPV Vaccine Y Duration of Flow (days) 4 Current Control Method None Age at Menarche 13 No Family Planning Y Age at First Child 23 Have you ever had a sexually transmitted infection? N 1st - Sex of Baby Boy Trichomonas N Frequency of Cycle (Q days) 28 Abnormal Pap result details ASCUS HPV + Sexually Active? Y Menses Monthly Y Date of Last Pap Smear 03/24/2019 Sexual Problems? N LMP Approximate Previous Delivery Type Vaginal Obstetrics History GPAL:G 3 P 1 0 2 1 Type Value Full Term 1 Spontaneous 2 Premature 0 Living 1 Total 3 Past Encounters Encounter ID Performer Location Encounter Start Date Encounter Closed Date Diagnosis/Indication Diagnosis SNOMED-CT Code Diagnosis ICD10 Code Diagnosis Note [id number] Emilee singh, RETAIL PRODUCT ADVISOR [facility] [address] [place] [address] 09/04/2017 14:10:26 09/05/2017 13:22:23 Amenorrhea [id number] N91.2 [id number] Kaylan Carson APN [facility] [address] [place] [address] 02/27/2018 14:53:01 02/27/2018 15:32:09 Amenorrhea [id number] N91.2 [id number] Deandre Terry DO [facility] [address] [place] [address] 03/07/2018 13:16:39 03/07/2018 15:02:24 Missed miscarriage [id number] O02.1 27yo at 10.5 wks by LMP 12/22/17. Presents after ED follow up for recent finding of missed ab. - By US dating is 9.5 weeks. Pt has no cramping. Has only minimal spotting. Denies any other issues. FOB not involved per pt. Same FOB as other pregnancie s TVUS 03/05/18:Ges tational Sac: Single intrauteri ne gestationa l sac is present.Th e estimated gestationa l age based on today's mean crown-rump length measuremen t of 2.82 cm was 9 weeks, 5 days +/-6 days.[place] Rump Length (mm): 2.82 cm Mean Sac Diameter (mm): 4.07 cm Yolk Sac Diameter (mm): Not applicable . Embryonic heart rate (BPM): No embryonic heart was detected by M-mode sonography .Amniotic fluid: Adequate. Placental anatomy: Not visualized due to early gestationa l age. Cervix: Closed and without significan t abnormalit ies. The uterus measures 9.1 x 6.1 x 7.7 cm in its overall dimensions . There was small amount of fluid observed within the endocervic al canal. Right ovary: The right ovary measures 3.3 x 2.3 x 2.9 cm. No significan t abnormalit ies. No mass. Left ovary: The left ovary measures 2.4 x 1.6 x 1.7 cm. No significan t abnormalit ies. No mass. Other: No significan t free fluid in the pelvic cul-de-sac . IMPRESSION :Nonviable single intrauteri ne . No heart rate is detected by M-mode sonography . The sonographi c findings are consistent with intrauteri ne demise. PLAN- Plan for suction D&C. Risks, benefits, and alternativ es discussed with pt. She agrees to D&C and consent obtained in office- Scheduled for 03/11/18 at 12:30- O positive- no rhogam indicated RTC 2 weeks postopD/W Dr Bebeto Sahrma PGY4 [id number] Po Tamez MD [facility] [address] [place] [address] 03/21/2018 13:09:32 03/21/2018 14:00:48 Missed miscarriage [id number] O02.1 27 yo s/p suction D &C on 03/11/2018 secondary to missed @ 9.5 weeks here for post-op check. Patient doing well. She denies vaginal bleeding or abdominal pain. She denies any other sx. 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 Plan -continue to monitor for signs of vaginal bleeding or severe abdominal cramping -pelvic and SVE performed today; wnl -( 8): urine test negative today RTC for annual or PRN D/w Dr. 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 The patient reports regular monthly cycles with moderate bleeding for 4-5 days. She states that she has not had any vaginal discharge, pruritis or spotting. She declines sexually transmitte d disease screening. Plan: - Pap smear performed today - Fertility awareness discussed - Breast exam significan t for fibrogland ular dense breasts but since patient has concerns about a palpable mass, will send for breast US - Return to clinic PRN or in 1 year Plan of care discussed with Dr. Po Tamez. - Dr. Maryam Sandy, PGY-3 Secondary physiologic amenorrhea [id number] N91.1 Patient reports she always has 28-30 day cycles. She has taken multiple home tests as she is trying to conceive but has not had her menses and is 4-5 days late. Negative urine test noted on dip today. Patient given preconcept ion counseling . Encouraged vitamins, smoking cessation and stress reduction to improve fertility. Discussed to return to clinic if menses doesn't commence 8 weeks from last LMP for secondary amenorrhea workup Breast lump [id number] N63 .0 Patient reports a palpable breast mass in the right breast at approximat kwame 3-4 o'clock 4-5cm from the nipple in the inner lower quadrant of the breast. She denies nipple discharge bilaterall y or breast pain. She denies history of breast or ovarian cancer in the family. Physical exam significan t for fibrogland ular dense breasts bilaterall y. At the area where patient has concerns, there is a sub-centim eter mobile, likely fibrogland ular component to her breast. Plan: - Right breast US ordered, to be scheduled at [facility] by patient, will follow results Body mass index 30+ - obesity [id number] Z68.36 Discussed with the patient that weight loss, exercise and dietary changes can improve fertility. Counseled her that elevated BMI alone can have increased risk of spontaneou s miscarriag e and subfertili ty. Tobacco user [id number] Z 72.0 Patient currently admits to smoking less than a pack a week. Smoking cessation reviewed and discussed with patient including treatments including nicotine patch. Encouraged smoking cessation prior to next as it will improve outcomes including risk of sAB, placental abruption, delivery, ectopic and other - related complicati ons as well as and pediatric complicati ons for the child. Patient was encouraged as she has already cut back on smoking from a pack per day. Encouraged her to seek resources in the community. [id number] Po Tamez MD [facility] [address] [place] [address] 06/03/2019 09:29:29 06/03/2019 12:21:26 Abnormal cervical Papanicolaou smear [id number] R87.619 28yo LMP 05/16/19 presents for followup of abnormal pap smear UPT negative Pap 03/24/19: ASCUS HPV pos Plan: - consented for colposcopy and ECC - biopsies taken at [address] [place] [address] - will call with results and will RTC if further workup needed d/w Dr Joi Gould PGY4 [id number] Po Tamez MD [facility] [address] [place] [address] 09/03/2019 13:31:12 09/04/2019 08:08:52 Feeling stressed [id number] Z73.3 27yo with LMP of 08/14/19 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 She states the bleeding has only been 1-3 days on average with 1-2 pads used per day. She admits to feeling stressed. 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 She admits to intentiona l weight loss of 20 pounds with healthy eating and exercise. (3 pound weight loss documented in [place]). However, she admits to only getting 1-2 hours of sleep a night. She is upset with her fiancee and states he doesn't help. Patient was offered social work at this visit but declines. She states she has good support system and feels comfortabl e in her relationsh ip and home. She denies intimate partner violence. Plan: - Urine test today, negative - Discussed that likely light periods are related to stress - Provided with stress education - Patient on escitalopr am 10mg daily, encouraged to continue and follow with primary care. - Patient encouraged to sleep more and quit smoking along with continued healthy diet and exercise. - Return to clinic in 06/2020 for repeat pap Plan of care reviewed with the patient in it's entirety. Questions invited and answered to the patient's satisfacti on. Patient agrees to plan of care. Plan of care discussed with Dr. Po Tamez. - Dr. Maryam Sandy, PGY-4 Atypical s quamous cells of undetermined significance on cervical Papanicolaou smear [id number] R87.610 03/24/19: ASCUS HR HPV positive pap smear 06/03/19: Colposcopy with biopsy at 12 o'clock & ECC: benign, endocervic al glands & squamous metaplasia Plan for repeat pap in 06/2020. [id number] Aarti Don APN [facility] [address] [place] [address] 09/01/2020 09:20:28 09/01/2020 13:10:12 Gynecologic examination [id number] Z01.419 30 yo presents for routine annual obstetrics gyn visit. LMP 08/19/2020 (now regular, but reported irregular last year), x 4 days. SAB x 2 @ 10 and 12 weeks and the patient is concerned and desires more children. Requesting STI screening. 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 Denies domestic violence, but planning to leave and change home (reason for working)PH Q-2/PHQ-9: 1 out of 6 Plan Exam WNLPap w/ cotesting collected GC/Ct collectedR x HIV, HCV ab, HBsAg, RPRpreconc eptual counseling recommende dsocial work referral - received by patient and business card provided- hospice social worker aware to expect call from bouchra romeo to start at age 40Encourag ed self-breas t exams, reviewed annual obstetrics gyn exams, pap testingAdv ised to seek pre-concep tual counseling when/if desires to have children - Discussed well woman care, fertility awareness/ safer sex practices, self-breas t exam, pap guidelines , mammograms starting at age 40, colonoscop y starting at age 50, DEXA scan screening starting at age 65, seatbelt use, and sunscreen use. RTC in one year routine annual obstetrics gyn or sooner if problems Atypical s quamous cells of undetermined significance on cervical Papanicolaou smear [id number] R87.610 03/24/2019- ASCUS HPV positive 06/03/2019: Colposcopy with biopsy at 12 o'clock & ECC: benign, endocervic al glands & squamous metaplasia Pap w/ cotesting today Venereal d isease screening [id number] Z11.3 GC/Ct collected Rx HIV, RPR, HBsAg, HCV Ab Increased stress [id number] Z73.3 in a [facility] ip of 11 years and has been working 90 hours per week to save money and move out on her own - denies any fear for physical safety of herself or child - the patient is still hurting over the fact that she has had two miscarriag es at 10 and 12 weeks. - the patient is exercising (walking) for stress reduction - not sleeping more than 1-2 hours a night Mass of right breast [id number] N63.10 upper outer quadrant @10-11 o'clock, 2-3 cm from nipple, semi-firm, smooth, moveable and non-tender Rx breast ultrasound [id number] Alysha Vargas APN [facility] [address] [place] [address] 11/01/2020 08:29:13 11/03/2020 03:49:12 Amenorrhea [id number] N91.2 Health Concerns Section Related Observation LastModified by Organization Detai ls LastModified Time None Recorded Concern Status LastModified by Organization Details LastModified Time None Recorded Advance Directives Directive N: educated Payers Encounter Date Sequence Insurance Name Policy Number Policy Reagan Covered Member ID Reagan Member ID Guarantor Name 03/23/2019 1 [facility] (MEDICAID REPLACEMENT - HMO) Georgie Kincaid [id number] Georgie Kincaid 06/03/2019 1 [facility] (MEDICAID REPLACEMENT - HMO) Georgie Kincaid [id number] Georgie Kincaid 09/03/2019 1 [facility] (MEDICAID REPLACEMENT - HMO) Georgie Kincaid [id number] Georgie Kincaid 09/01/2020 1 [facility] (MEDICAID REPLACEMENT - HMO) Georgie Kincaid [id number] Georgie Kincaid 11/01/2020 1 [facility] (MEDICAID REPLACEMENT - HMO) Georgie Kincaid [id number] Georgie Kincaid Notes Date Note Type Note Provider Name and Address Organization Details Recorded Time 03/23/2019 text/html 28yo 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 Po Tamez MD [address] [place] [address], [phone], [facility] 03/23/2019 12:34:18 06/03/2019 text/html 28yo LMP 05/16/19 presents for followup of abnormal pap smear Po Tamez MD [address] [place] [address], [phone] 06/03/2019 11:50:19 09/03/2019 text/html 29yo LMP of 08/14/2019 presenting for concern of abnormal uterine bleeding. Po Tamez MD [address] [place] [address], [phone], [facility] 09/03/2019 17:54:22 09/01/2020 text/html Annual GYNReport ed bypatient.History: no gynecologic complaints Menstrual cycle:Normal menses Urinary symptoms:No hematuria; No incontinence Vulva:No genital lesion Vagina:Normal vaginal discharge Breast:No breast pain; No breast lump; No nipple discharge Current Contraception:Stearns gamous relationship; Requests testing for sexually transmitted infections Sexual complaints:No sexual complaints; No pain during intercourse; Normal libido Menopausal Symptoms:Normal vaginal lubrication Psychological symptoms:No depression; No anxiety; increased stress with lifestyle changes to achieve a goal of moving out Preventive measures:Encourage self breast examination; Encourage regular exercise; Encourage no tobacco use; Encourage regular mammograms starting age 40; History of abnormal pap smear/cervical dysplasia (03/2019 ASCUS HPV + 06/2019 colop benign) Aarti Don APN [address] [place] [address], [phone], [facility] 09/01/2020 12:47:10 OBGyn Episode Ob Episode Information Episode Created Date Number of Fetuses Patient Bloodtype Patient rh Status Prepregnancy Weight lbs Domestic Partner Domestic Partner Phone Father Name Pattern Fitter Status 09/01/20 20 1 CLOSED Fetus Data First Name Last Name Admitted to NICU Weight (g) Sex Living Outcome Pediatric Complications Fetus ID Race Codes Race Delivery Type 4139.02 7 M Full Term [id number] Emerson Calculation Initial Emerson Date Initial Exam Date Initial Exam Provider Initial Ultrasound Date Last Menstrual Period Date Ultra Sound Weeks Gestation 0 Eighteen To Twenty Week Emerson Update Ultra Sound Date Fundal Height At Umbil Quickening Date Ultra Sound Latest Weeks Gestation Final Emerson Confirmed By Final Emerson Confirmed Date Final Emerson Date Ultra Sound Latest Days Gestation 0 0 Menstrual History Last Menstrual Date Menses Monthly On Bcp Conception Prior Menses Frequency Hcg Plus Date Menarche Onset Age Delivery Information Delivery Date Delivery Type Labor Anesthesia Weeks Gestation Incision Type Labor Labor Length Hrs Delivered By Post Complications Tubal Sterilization Discharge Date Comments 5 Discharge Information Feeding Method Contraceptive Method Maternal HG B and HCT Levels
--- OUTSIDE RECORDS SUMMARY | 2025-02-03 11:51 | XMS_ITS | Clinical Summary ---
Author Organization [facility] Address [address] [place] [address] Care Team Providers Care Fruit Receiver Name Role Phone Unavailable Primary Care Provider [...]
== END 2025-02-03 10:32 | disposition home or self-care (01) ==
PROVIDERS: PCP Internal Medicine; Visit Provider Internal Medicine
DX: S09.90XA Unspecified injury of head, initial encounter (principal); W00.9XXA Unspecified fall due to ice and snow, initial encounter; M54.2 Cervicalgia; M25.511 Pain in right shoulder; M54.50 Low back pain, unspecified; M25.561 Pain in right knee; M25.571 Pain in right ankle and joints of right foot

== ENCOUNTER 2025-02-03 10:04 | Outpatient (REF) | payer OTHER, SELFPAY ==
--- NOTE | ~2025-02-03 | XR_ITS ---
CLINICAL HISTORY: W00.9XXA - Unspecified fall due to ice and snow, initial encounter 2 view right shoulder Comparison: None Findings: Bones intact. No dislocations. The right humeral head is appropriately positioned with respect to the right glenoid. Median sternotomy wires are in place. No focal consolidation or effusion identified within the visualized portion of the right lung. IMPRESSION: 1. No acute fracture or dislocation injury identified at the right shoulder. This document has been electronically signed by: Catrachito Arroyo MD on 02/04/2025 02:10:45
--- NOTE | ~2025-02-03 | XR_ITS ---
CLINICAL HISTORY: W00.9XXA - Unspecified fall due to ice and snow, initial encounter 2 view right knee Comparison: None Findings: No acute fractures or dislocations. No joint effusion. No radiopaque foreign body. IMPRESSION: 1. No acute fracture or dislocation injury identified at the right knee. This document has been electronically signed by: Catrachito Arroyo MD on 02/04/2025 02:19:47
--- NOTE | ~2025-02-03 | XR_ITS ---
CLINICAL HISTORY: W00.9XXA - Unspecified fall due to ice and snow, initial encounter 3 view right ankle Comparison: None Findings: Bones intact. No dislocations. Possible right ankle effusion. No radiopaque foreign body. IMPRESSION: 1. No acute fracture or dislocation injury identified at the right ankle. This document has been electronically signed by: Catrachito Arroyo MD on 02/04/2025 02:41:36
--- NOTE | ~2025-02-03 | XR_ITS ---
CLINICAL HISTORY: W00.9XXA - Unspecified fall due to ice and snow, initial encounter 3 views lumbar spine Comparison: None Findings: Normal alignment. There is transitional lumbosacral anatomy. No acute fractures or dislocation. Mild degenerative endplate changes are present at the lumbar spine. Pulse generator visualized over the left upper abdominal quadrant. IMPRESSION: 1. No acute fracture or dislocation injury identified at the lumbar spine. This document has been electronically signed by: Catrachito Arroyo MD on 02/04/2025 02:40:54
--- NOTE | ~2025-02-03 | XR_ITS ---
CLINICAL HISTORY: W00.9XXA - Unspecified fall due to ice and snow, initial encounter 4 views cervical spine Comparison: None Findings: Normal alignment. No acute fractures or dislocation. Mild degenerative endplate changes and mild loss of intervertebral disc space height present at C6-C7. No focal consolidation or effusion identified within the visualized portions of the bilateral lung apices. Partial visualization of the cardiac lead which appears partially buckled over the left subclavian region. The distal tip of the lead terminates near the superior SVC. IMPRESSION: 1. No acute fracture or dislocation injury identified at the cervical spine. This document has been electronically signed by: Catrachito Arroyo MD on 02/04/2025 00:11:23
--- NOTE | ~2025-02-03 | XR_ITS ---
CLINICAL HISTORY: W00.9XXA - Unspecified fall due to ice and snow, initial encounter 2 view right hip Comparison: None Findings: No acute fracture or dislocation. The right femoral head appears normal in contour and is appropriately positioned with respect to the right acetabulum. The right hip joint space appears preserved. IMPRESSION: 1. No acute fracture or dislocation injury identified at the right hip. This document has been electronically signed by: Catrachito Arroyo MD on 02/04/2025 02:23:53
--- OUTSIDE RECORDS SUMMARY | 2025-02-03 12:24 | XMS_ITS | Clinical Summary ---
Author Organization [facility] Address [address] [place] [address] Care Team Providers Care Mattress Filler Name Role Phone Unavailable Primary Care Provider [...]
--- OUTSIDE RECORDS SUMMARY | 2025-02-03 12:24 | XMS_ITS | Clinical Summary ---
Author Organization [facility] Address [address] [place] [address] Care Team Providers Care Medical File Clerk Name Role Phone Unavailable Primary Care [...]
--- OUTSIDE RECORDS SUMMARY | 2025-02-03 12:24 | XMS_ITS | Clinical Summary ---
Author Organization [facility] Address [address] [place] [address] Care Team Providers Care Welfare Project Manager Name Role Phone Unavailable Primary Care [...] [place] [address]
== END 2025-02-03 10:05 | disposition home or self-care (01) ==
LOC: HO.HMGCX 10:04
PROVIDERS: PCP Internal Medicine; Visit Provider Internal Medicine
DX: S09.90XA Unspecified injury of head, initial encounter (principal); M54.2 Cervicalgia; M25.511 Pain in right shoulder; M54.50 Low back pain, unspecified; M25.561 Pain in right knee; M25.571 Pain in right ankle and joints of right foot; W00.9XXA Unspecified fall due to ice and snow, initial encounter
CPT/HCPCS: 72040; 72100; 73030; 73502; 73560; 73600; 99212

== ENCOUNTER → 2025-02-03 10:35 | Outpatient (BNV) | payer OTHER, SELFPAY | PROVIDERS: PCP Internal Medicine; Visit Provider Radiology Diagnostic Radiology | DX: S79.911A Unspecified injury of right hip, initial encounter (principal); S39.92XA Unspecified injury of lower back, initial encounter; S19.9XXA Unspecified injury of neck, initial encounter; S49.91XA Unspecified injury of right shoulder and upper arm, initial encounter; S80.911A Unspecified superficial injury of right knee, initial encounter; S99.911A Unspecified injury of right ankle, initial encounter | CPT/HCPCS: 72040; 72100; 73030; 73502; 73560; 73600 ==

== ENCOUNTER 2025-02-05 13:45 | Outpatient (AMB) | payer OTHER, SELFPAY ==
--- NOTE | 2025-02-05 13:57 | A.OFFPC_ITS ---
Vital Signs 02/05/25 13:58 Height 5 ft 4 in Weight 212 lb BMI 36.4 BP 100/62 Blood Pressure Location Lt brachial Position Sitting Respiration 16 Pulse 82 Pulse Source Pulse Oximeter Temp 98.4 F Temp Source Oral Pulse Oximetry (%) 98 Oxygen Delivery Method Room Air Intake Visit Reasons: Follow up walk-in/Per Dr. Boston Allergies amoxicillin [AMOXICILLIN] Allergy (Unknown, Verified 02/05/25 13:59) RASH, rash, swelling, hives sulfamethoxazole [From BACTRIM] Allergy (Unknown, Verified 02/05/25 13:59) HIVES trimethoprim [From BACTRIM] Allergy (Unknown, Verified 02/05/25 13:59) HIVES Medication List - Last Reconciled 02/05/25 by Erlin Boston MD amitriptyline 10 mg PO BEDTIME aspirin 162 mg PO DAILY Tobacco use date assessed: 02/05/25 Dental Screening Dental Screen Date: 02/05/25 Did you have a dental visit in the last 12 months?: Yes Did you have a dental problem in the last 6 months where you did not have access to dental care?: No Was dental information given to patient?: Patient has dentist HPI Follow up walk-in/Per Dr. Boston HPI Details f.u after fall 02/03/25 slipped on ice was seen in walk in had X ray for right sided joints , lumber , shoulder neck all xrays came back WNL couldnt take tramadol and diclofenic as they caused nausea still having cervicalgia and associated shoulder pain. right but getting better - Patient was advised that cyclobenzapri ne is safe to continue for muscle relaxation. - Recommended pain management includes i buprofen as needed, and maintaining shoulder mobility. - The patient is advised to contact the practice if symptoms do not improve within the expected timeframe. Problem List - Cervicalgia with potential radicular s ymptoms - Adverse reaction to medication (likely tramadol or diclofenac) Patient Instructions - Take ibuprofen with food as needed for pain relief. - Continue taking cyclobenzaprine as nee ded for muscle relaxation. - Maintain gentle movement of the should er to prevent stiffness. - Monitor symptoms over the next week to ten days. - Contact the office for persisting disc omfort for consideration of physical therapy. - Return on the for a scheduled gen eral physical exam. - Request a work note if needed for toda y's absence. Review of Systems - General: No fever no chills - Neurological: No headaches no dizziness - Ear nose throat: No sore throat no hearing difficulty no ear pain - Cardiovascular: No syncope, no chest pain, no palpitations - Gastrointestinal: No nausea vomiting or diarrhea - Endocrine: No polyuria polydipsia no heat intolerance - Genitourinary: No dysuria , no blood in urine Physical Exam General: No acute distress HEENT: No acute findings Neck: Supple Respiratory system: Able to talk in full sentences, no audible wheeze cardiovascular: S1-S2 regular in rate and rhythm Gastrointestinal: No pain Extremities: Shoulder discomfort, feels like a pinched nerve GASTROENTEROLOGY TECHNICIAN: Alert awake oriented x3 motor sensory intact Skin: Normal turgor [facility] Medical History Pacemaker Pain in lower jaw No known health problems Family History Maternal Grandfather Bladder cancer Renal cancer Social History Housing: Apartment Patient Tobacco Use Status: Current everyday Tobacco user e-Cigarette/Vaping Use: Never Used Substance Use Type: Marijuana service: No Current occupational status: employed Cognitive needs: No Hearing needs: No Vision needs: Yes Questionnaire PHQ-9 Over the last 2 weeks, how often have you been bothered by any of the following problems? 1. Little interest or pleasure in doing things: more than half the days 2. Feeling down, depressed, or hopeless: several days 3. Trouble falling or staying asleep, or sleeping too much: nearly every day 4. Feeling tired or having little energy: nearly every day 5. Poor appetite or overeating: more than half the days 6. Feeling bad about yourself - or that you are a failure or have let yourself or your family down: several days 7. Trouble concentrating on things, such as reading the newspaper or watching television: several days 8. Moving or speaking so slowly that other people could have noticed. Or the opposite - being so fidgety or restless that you have been moving around a lot more than usual: several days 9. Thoughts that you would be better off or of hurting yourself in some way: not at all Total score: 14 Depression Screening Interpretation: Positive Depression Screening Follow-up: Existing condition and In treatment Depression Screening Done: Yes Source: Developed by Drs. Giorgi Ventura, Graciela Shahid, Estuardo Paiz and colleagues, with an educational paddy from [employer] Thrive Questionnaire Date Thrive assessed: 03/07/23 I am a: Patient What is your living situation today?: I have a steady place to live Within the past 12 months, did the food you bought not last and you didn't have the money to get more?: Sometimes True Within the past 12 months, did you worry whether your food would run out before you got money to buy more?: Sometimes True Do you have trouble paying for medicines?: I choose not to answer this question Do you have trouble getting transportation to medical appointments?: No Do you have trouble paying your heating and electricity bill?: Yes Do you have trouble taking care of your child, family member or friend?: No Do you have trouble with day-to-day activities such as bathing, preparing meals, shopping, managing finances, etc.?: No Are you currently unemployed and looking for a job?: No Are you interested in more education?: No Please select the resources that you would like help with: Food and Utilities Currently or been in a relationship where the following occur: No concerns reported THRIVE Score: 3 AUDIT C Alcohol Use Questionnaire (AUDIT-C) 1. How often do you have a drink containing alcohol?: Monthly or less 2. How many drinks containing alcohol do you have on a typical day when you are drinking?: 1 or 2 3. How often do you have six or more drinks on one occasion?: Never Total Score: 1 ROSCOE-7 AMB Questionnaire ROSCOE-7 Date ROSCOE - 7 assessed: 12/11/23 Feeling nervous, anxious, or on edge: 1 = Several days Not being able to stop or control worryin = Several days Worrying too much about different things: 1 = Several days Trouble relaxin = Several days Being so restless that it is hard to sit still: 1 = Several days Becoming easily annoyed or irritable: 1 = Several days Feeling afraid as if something awful might happen: 1 = Several days Total ROSCOE-7 score (0-4 normal; 5-9 mild; 10-14 moderate; 15-21 severe): 7 Source: Developed by Drs. Giorgi Ventura, Graciela Shahid, Estuardo Paiz and colleagues, with an educational paddy from [employer] Physical exam (Primary Care) Vital Signs: Last Vital Signs Temp 98.4 F 02/05/25 13:58 Pulse 82 02/05/25 13:58 Resp 16 02/05/25 13:58 BP 100/62 02/05/25 13:58 Pulse Ox 98 02/05/25 13:58 Oxygen Delivery Method Room Air 02/05/25 13:58 BMI result Body Mass Index 36.4 Tobacco/Smoking Status: Tobacco use Status Tobacco use date assessed 02/05/25 02/05/25 14:02 Patient Tobacco Use Status Current everyday Tobacco 02/05/25 14:02 e-Cigarette/Vaping Use Never Used 02/05/25 14:02 PHQ-9: PHQ-9 Score PHQ-9: Total score 14 02/05/25 14:09 Depression Screening Interpretation: Positive Depression Screening Follow-up: Existing condition and In treatment Thrive Assessment: Date of Thrive Assessment Date Thrive assessed 03/07/23 02/05/25 14:02 Currently or been in a relationship where the following occur: No concerns reported Coding Level of Care Code Est Pt Level 3 (12265) Diagnoses Fall due to slipping on ice or snow, initial encounter W00.9XXA Encounter type: initial encounter Neck pain M54.2 Acute pain of right shoulder M25.511 Chronicity: acute Assessment & Plan Assessment & Plan (1) Fall from slipping on ice: Code(s): W00.9XXA - Unspecified fall due to ice and snow, initial encounter Category: Medical Qualifiers: Encounter type: initial encounter Qualified Code(s): W00.9XXA - Unspecified fall due to ice and snow, initial encounter (2) Neck pain: Code(s): M54.2 - Cervicalgia Category: Medical (3) Shoulder pain, right: Code(s): M25.511 - Pain in right shoulder Category: Medical Qualifiers: Chronicity: acute Qualified Code(s): M25.511 - Pain in right shoulder Plan f.u after fall 02/03/25 slipped on ice was seen in walk in had X ray for right sided joints , lumber , shoulder neck all xrays came back WNL couldnt take tramadol and diclofenic as they caused nausea still having cervicalgia and associated shoulder pain. right but getting better - Patient was advised that cyclobenzaprine is safe to continue for muscle relaxation. - Recommended pain management includes ibuprofen as needed, and maintaining shoulder mobility. - The patient is advised to contact the practice if symptoms do not improve within the expected timeframe. Problem List - Cervicalgia with potential radicular symptoms - Adverse reaction to medication (likely tramadol or diclofenac) Patient Instructions - Take ibuprofen with food as needed for pain relief. - Continue taking cyclobenzaprine as needed for muscle relaxation. - Maintain gentle movement of the shoulder to prevent stiffness. - Monitor symptoms over the next week to ten days. - Contact the office for persisting discomfort for consideration of physical therapy. - Return on the for a scheduled general physical exam. - Request a work note if needed for today's absence. Review of Systems - General: No fever no chills - Neurological: No headaches no dizziness - Ear nose throat: No sore throat no hearing difficulty no ear pain - Cardiovascular: No syncope, no chest pain, no palpitations - Gastrointestinal: No nausea vomiting or diarrhea - Endocrine: No polyuria polydipsia no heat intolerance - Genitourinary: No dysuria , no blood in urine
[2025-02-05 13:58] VITALS: BP 100/62; PULSE 82; RESP 16; TEMP 36.9; O2SAT 98; BMI 36.4
--- OUTSIDE RECORDS SUMMARY | 2025-02-05 15:27 | XMS_ITS | Data Portability ---
Author Organization [facility], [facility]Sc[facility] Address [address], [address] [address] Care Team Providers Care Psychiatric Rn Name Role Phone JURADO, BRANDON Primary Care Provider Assessment Encounter Date Assessment Date Assessment LastModified by Organization Details LastModified Time 11/01/2020 11/01/2020 See electronic result received. [email or web address] Not available 11/01/2020 10:10:12 Plan of Treatment Reminders Order Date Submit Date Provider Last Modified By Organization Details Last Modified Time Details Appointments None recorded. Lab test, urine 2019 020 [facility], [address] [place] [address], [address], 0 10:10:26 pap, LB + HR HPV + reflex HPV (16+18) 2019 020 [facility], [place], [address], 0 14:30:07 HIV 1+2 Ab + HIV1 p24 Ag, quantitativ e immunoassay , serum 2019 020 [facility], [place], [address], 1 05:02:01 RPR (rapid plasma reagin), serum 2019 020 [facility], [address], [place], [address], 1 05:02:01 HBsAg (hepatitis B surface Ag), serum 2019 [facility], [address], [place], [address], 1 05:02:26 hepatitis C virus Ab, serum 2019 [facility], [address], [place], [address], 05:02:23 CT + NG RNA, PCR, unspecified specimen - cervical 2019 [facility], [place], [address], 0 14:30:10 test, urine 2018 019 [email or web address] In-Office Order, Internal Use Only DO Not Attach Compendium DO Not Attach Compendium, Do Not Delete/merge, [id number] 17:54:01 biopsy, endocervica l 2018 019 [facility], [address] [facility], [address], [address], 9 16:57:57 biopsy, cervical 2018 019 [facility], [address], [address] [facility], [place], [address], 9 16:57:57 test, urine 2018 019 [email or web address] In-Office Order, Internal Use Only DO Not Attach Compendium DO Not Attach Compendium, Do Not Delete/merge, [id number] 9 10:36:04 pap, IG + HPV mRNA E6/E7 + reflex HPV (16+18+45) 2018 019 [facility], [address] [facility], [address], [place], [address], 9 11:04:57 Referral None recorded. Procedures None recorded. Surgeries None recorded. Imaging US, breast, unilateral, complete - upper outer quadrant @10-11 o'clock, 2-3 cm from nipple, semi-firm, smooth, moveable and non-tender 2019 020 [facility], [address] [place], [address], 1 05:02:09 US, breast 2018 019 [facility], [address] [place], [address], 0 05:01:13 Medication Orders None recorded. Patient TargetsNo targets recorded. Patient Instructions Encounter Date Encounter Id Patient Instructions Last Modified By Organization Details Last Modified Time 03/23/2019 [id number] Quitting Tobacco : Care Instructions [email or web address] Not [...] encounter. [email or web address] Not available 03/23/2019 11:43:34 06/03/2019 [id number] abnormal Pap test: care instructions [email or web address] Not available 06/03/2019 10:56:02 colposcopy: before your procedure [email or web address] Not available 06/03/2019 10:56:02 I have examined and reviewed the patient encounter with the resident. Resident name: Dr. Wells I have reviewed the history, physical findings, assessment and plan of the resident. We have completely discussed all aspects of the encounter. Comments: [email or web address] Not available 06/03/2019 11:49:26 09/03/2019 [id number] learning about stress [email or web address] Not available 09/03/2019 [...] encounter. [email or web address] Not available 09/03/2019 14:20:24 09/01/2020 [id number] abnormal Pap test: care instructions [email or web address] Not available 09/01/2020 10:50:22 Well Visit, Ages 18 to 65: Care Instructions [email or web address] Not available 09/01/2020 10:50:22 learning about natural family planning [email or web address] Not available 09/01/2020 10:50:22 safer sex: care instructions [email or web address] Not available 09/01/2020 10:50:22 breast self-exam : care instructions [email or web address] Not available 09/01/2020 10:50:22 learning about sun damage and your skin [email or web address] Not available 09/01/2020 10:50:22 learning about depression [email or web address] Not available 09/01/2020 10:50:22 Reason for Referral None Reported. Results Created Date Observation Date Name Description Value Unit Range Abnormal Flag Note LastModifiedBy Organization Detail LastModifiedTime 09/03/20 19 09/03/2019 pregn claudia test, urine Unknown Analyte negati ve Not Available In-Office Order Internal Use Only DO Not Attach Compendium DO Not Attach Compendium, Do Not Delete/merge, [id number] 09/03/2019 14:11:11 03/23/20 19 03/23/2019 pregn claudia test, urine POC urine NEGATI VE . negati ve Not Available [facility] [address] [place], [address], 03/23/2019 10:25:12 06/05/20 19 05/06/2019 pregn claudia test, urine Unknown Analyte negati ve Not Available In-Office Order Internal Use Only DO Not Attach Compendium DO Not Attach Compendium, Do Not Delete/merge, [id number] 03/23/2019 10:22:36 06/03/20 19 06/03/2019 pregn claudia test, urine POC urine NEGATI VE . negati ve Not Available [facility] [address] [place], [address], 06/03/2019 10:05:35 09/03/20 19 09/03/2019 pregn claudia test, urine POC urine NEGATI VE . negati ve Not Available [facility] [address] [place], [address], 09/03/2019 14:37:41 09/01/20 20 09/08/2020 pap, LB + HR HPV + refle x HPV (16+1 8) clinical information: None given normal Not Available [facility] [place], [address], 09/08/2020 14:30:07 09/01/20 20 09/08/2020 pap, LB + HR HPV + refle x HPV (16+1 8) LMP: [id number] 20 normal Not Available [facility] [place], [address], 09/08/2020 14:30:07 09/01/20 20 09/08/2020 pap, LB + HR HPV + refle x HPV (16+1 8) prev. Pap: [id number] 19 ASCUS HR HPV POSTIV E normal Not Available [facility] [place], [address], 09/08/2020 14:30:07 09/01/20 20 09/08/2020 pap, LB + HR HPV + refle x HPV (16+1 8) prev. BX: None given normal Not Available [facility] [place] [place], [address], 09/08/2020 14:30:07 09/01/20 20 09/08/2020 pap, LB + HR HPV + refle x HPV (16+1 8) source: Cervix , Endoce rvix normal Not Available [facility] [address] [place], [address], 09/08/2020 14:30:07 09/01/20 20 09/08/2020 pap, LB + HR HPV + refle x HPV (16+1 8) statement of adequacy: normal Satis facto ry for evalu ation . Endoc ervic al/tr ansfo rmati on zone compo nent prese nt. Not Available [facility] [address] [place], [address], 09/08/2020 14:30:07 09/01/20 20 09/08/2020 pap, LB + HR HPV + refle x HPV (16+1 8) general categorizati on: EPITHE LIAL CELL ABNORM ALITY abnormal Not Available [facility] [address] [place], [address], 09/08/2020 14:30:07 09/01/20 20 09/08/2020 pap, LB + HR HPV + refle x HPV (16+1 8) interpretati on/result: Low Grade Squamo us Intrae pithel ial Lesion (LSIL) abnormal Not Available [facility] [employer] [address] [place], [address], 09/08/2020 14:30:07 09/01/20 20 09/08/2020 pap, LB + HR HPV + refle x HPV (16+1 8) cytotechnolo gist: normal LAS, CT (ASCP ) CT scree barrera locat ion: [facility] [address] [place] [address] Not Available [facility] [address] [place], [address], 09/08/2020 14:30:07 09/01/20 20 09/08/2020 pap, LB + HR HPV + refle x HPV (16+1 8) pathologist: normal Markun stephanie french MD (elec troni c signa ture) Board Certi fied in [facility] log[facility] Not Available [address] [place], [address], 09/08/2020 14:30:07 09/01/20 20 09/08/2020 pap, LB [...] clini kai infor matio n. Not Available [address] [place], [address], 09/08/2020 14:30:07 09/01/2009/08/2020 pap, LB + HR HPV + refle x HPV (16+1 8) HPV DNA, high risk, cervical Detect ed not detect ed abnormal Detec shey One or more High Risk HPV types (16,1 8,31, 33, 35,39 ,45,5 1,52, 56,58 ,59,6 6,68) was detec shey. Metho dolog y: Real Time PCR Not Available [address] [place], [address], 09/08/2020 14:30:07 09/01/2009/08/2020 CT + NG RNA, PCR, unspe cifie d speci men chlamydia trachomatis RNA, tma, urogenital NOT DETECT ED not detect ed normal Not Available [address] [place], [address], 09/08/2020 14:30:10 09/01/20 20 09/08/2020 CT + NG RNA, PCR, unspe cifie d speci men neisseria gonorrhoeae RNA, tma, urogenital NOT DETECT ED not detect ed normal Not Available [facility] [place] [facility] [address] [place], [address], 09/08/2020 14:30:10 09/01/20 20 09/08/2020 CT + [...] e refer to https ://ed ucati on.qu estSquee. CueSongs/f aq/FA Q154 (This link is being provi ded for infor yaima cam/ educa garrett l purpo ses only. ) Not Available [facility] [address] [place], [address], 09/08/2020 14:30:10 11/01/20 20 11/01/2020 pregn claudia test, urine POC urine NEGATI VE . negati ve Not Available [address], [address], 11/01/2020 09:06:43 Result Notes None recorded. Problems No Known Problems Procedures Surgical History Date Name Laterality Status Provider Name and Address Organization Details Recorded Time 09/01/20 Nursing Points - Established Patient Level 3 completed Lyudmila Newberry [facility] 09/01/2020 10:04:59 09/03/20 Nursing Points - Established Patient Level 3 completed Emilee King [facility] 09/03/2019 14:10:14 06/03/20 19 Colposcopy completed Renuka Wells [facility] 06/03/2019 11:42:40 06/03/20 19 Nursing Points - Established Patient Level 3 completed Emilee King [facility] 06/03/2019 10:03:33 06/03/20 19 Colposcopy completed Lyudmila Rohith [facility] 09/01/2020 09:54:18 03/24/20 19 Date of Last Pap Smear completed Lyudmila Newberry [facility] 09/01/2020 09:53:52 03/23/20 19 Nursing Points - Established Patient Level 3 completed Eileen Grigsby [facility] 03/23/2019 09:47:08 12/02/19 19 Dilation and Curettage completed Lyudmila Newberry [facility] 09/01/2020 10:02:11 03/21/20 18 Nursing Points - Established Patient Level 3 completed Emilee King [facility] 03/21/2018 13:23:42 03/07/20 18 Nursing Points - Established Patient Level 3 completed Eileen Grigsby [facility] 03/07/2018 13:52:31 12/02/19 11 open heart surgery completed Solange Sandy MD [address] [place] [address], [phone] [place] [address] 03/23/2019 10:59:29 Imaging Results None recorded. Procedure Notes None recorded. Medical Equipment None Reported. Allergies Allergen ID Allergen Name Allergen Category Reaction Reaction Severity Criticality Documentation Date Start Date Code Code System Note Provider Name and Address Organization Details Recorded Time 13964 amoxicill in medicatio n rash severe Not available 03/07/2018 723 RxNorm Eileen Donald [facility] 8 13:50:15 Medications Name Sig Start Date [...] 0 162.56 cm 83 /min 33.3 kg/m2 17346.9 2 g 123 mm[Hg] 67 mm[Hg] Edda Owen [facility] 0 09:33:20 Date Recorded Heart rate Body weight Body mass index (BMI) Body height Systolic blood pressure Diastolic blood pressure Provider Name and Address Organization Details Last Updated DateTime 9 64 /min 79364.9 9 g 36.2 kg/m2 162.56 cm 95 mm[Hg] 46 mm[Hg] Dea Al [facility] 9 09:37:22 Date Recorded Body height Heart rate Body mass index (BMI) Body weight Systolic blood pressure Diastolic blood pressure Provider Name and Address Organization Details Last Updated DateTime 9 162.56 cm 76 /min 35.7 kg/m2 73736.2 1 g 118 mm[Hg] 70 mm[Hg] Dea Griffithmonica [facility] 9 09:46:13 Date Recorded Body height Body mass index (BMI) Body weight Heart rate Systolic blood pressure Diastolic blood pressure Provider Name and Address Organization Details Last Updated DateTime 9 162.56 cm 35.7 kg/m2 46215.2 1 g 70 /min 130 mm[Hg] 62 mm[Hg] Hilary Mik Montalvo [facility] 9 13:44:22 Social History Question Answer Notes LastModified by Organizat ion Details LastModified Time Tobacco Smoking Status Current Every Day [facility] 09/01/2020 09:58:17 Do You Have An Advance [...] 09/01/2020 Are You Currently Employed? 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 2 Information not available 09/01/2020 Live Alone Or With Others? With Others Boyfriend And Child Information not available 09/01/2020 Preferred Language Burmese Information not available 06/03/2019 Language(s) Spoken At Home Burmese Information not available 09/01/2020 Barriers Noted No Informatio n not available 06/03/2019 Emotional State Denies Depression Denies Harmful Thoughts Information not available 03/07/2018 Cultural Barrier No Information not available 06/03/2019 Hearing Intact Yes Informatio n not available 09/01/2020 Language Barrier No Information not available 06/03/2019 Language(s) Understood Burmese Information not available 09/01/2020 Literacy Barrier No [...] Of Varicella Yes Information not available 09/01/2020 Microsoft Exchange Administrator Requested In Exam Room No Male/ Female [...] disorder had surger y shortl y afer Not available 09/01/2020 12:07:21 Medical History Condition Response Heart Disease Y Asthma Y Gynecological History Statement/Question Response Family Planning [...] SNOMED-CT Code Diagnosis ICD10 Code Diagnosis Note [id number] Emilee singh, 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 [facility] [address] [place] [address] 09/04/2017 14:10:26 09/05/2017 13:22:23 Amenorrhea 47316486 N91.2 [id number] Kaylan Carson APN [facility] [address] [place] [address] 02/27/2018 14:53:01 02/27/2018 15:32:09 Amenorrhea 28897507 N91.2 [id number] Deandre Terry DO [facility] [address] [place] [address] 03/07/2018 13:16:39 03/07/2018 15:02:24 Missed miscarriage 25713023 O02.1 27yo at 10.5 wks by LMP [...] cm was 9 weeks, 5 days +/-6 days.[place] Rump Length (mm): 2.82 cm Mean Sac [...] indicated RTC 2 weeks postopD/W Dr Bebeto Sharma PGY4 [id number] Po Tamez MD [facility] [address] [place] [address] 03/21/2018 13:09:32 03/21/2018 14:00:48 Missed miscarriage 44565510 O02.1 27 yo s/p suction D &C [...] or PRN D/w Dr. Joi Le-PGY- 1 [id number] Po Tamez MD [facility] [address] [place] [address] 03/23/2019 09:25:13 03/23/2019 11:40:35 Gynecologic examination 61897164 Z01.419 28yo with a LMP of 02/16/19 presenting for annual RN RESOURCE NURSE visit. The patient reports regular monthly cycles [...] Dr. Maryam Sandy, PGY-3 Secondary physiologic amenorrhea 53346143 N91.1 Patient reports she always has 28-30 [...] LMP for secondary amenorrhea workup Breast lump 99397221 N63 .0 Patient reports a palpable breast [...] breast US ordered, to be scheduled at [facility] by patient, will follow results Body mass index 30+ - obesity 811496362 Z68.36 Discussed with the patient that weight loss, exercise and dietary changes can improve fertility. Counseled her that elevated BMI alone can have increased risk of spontaneou s miscarriag e and subfertili ty. Tobacco user 803270354 Z 72.0 Patient currently admits to smoking [...] her to seek resources in the community. [id number] Po Tamez MD [facility] [address] [place] [address] 06/03/2019 09:29:29 06/03/2019 12:21:26 Abnormal cervical Papanicolaou smear 432445041 R87.619 28yo LMP 05/16/19 presents for followup of abnormal pap smear UPT negative Pap 03/24/19: ASCUS HPV pos Plan: - consented for colposcopy and ECC - biopsies taken at [address] [place] [address] - will call with results and will RTC if further workup needed d/w Dr Joi Gould PGY4 [id number] Po Tamez MD [facility] [address] [place] [address] 09/03/2019 13:31:12 09/04/2019 08:08:52 Feeling stressed 052022261 Z73.3 27yo with LMP of 08/14/19 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 She states the bleeding has only been 1-3 days on average with 1-2 pads used per day. She admits to feeling stressed. 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 She admits to intentiona l weight loss of 20 pounds with healthy eating and exercise. (3 pound weight loss documented in [place]). However, she admits to only getting 1-2 [...] Plan of care discussed with Dr. Po Taemz. - Dr. Maryam Sandy, PGY-4 Atypical s quamous cells of undetermined significance on cervical Papanicolaou smear 747270146 R87.610 03/24/19: ASCUS HR HPV positive pap smear 06/03/19: Colposcopy with biopsy at 12 o'clock & ECC: benign, endocervic al glands & squamous metaplasia Plan for repeat pap in 06/2020. 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 LMP 08/19/2020 (now regular, but reported [...] received by patient and business card provided- social work supervisor aware to expect call from bouchra romeo to start at age 40Encourag ed self-breas t exams, reviewed annual physical science professor exams, pap testingAdv ised to seek pre-concep tual counseling when/if desires to have children - Discussed well woman care, fertility awareness/ safer sex practices, self-breas t exam, pap guidelines , mammograms starting at age 40, colonoscop y starting at age 50, DEXA scan screening starting at age 65, seatbelt use, and sunscreen use. RTC in one year routine annual physical science professor or sooner if problems Atypical s quamous cells of undetermined significance on cervical Papanicolaou smear 179998423 R87.610 03/24/2019- ASCUS HPV positive 06/03/2019: Colposcopy with biopsy at 12 o'clock & ECC: benign, endocervic al glands & squamous metaplasia Pap w/ cotesting today Venereal d isease screening 637287349 Z11.3 GC/Ct collected Rx HIV, RPR, HBsAg, HCV Ab Increased stress 7466393 4 Z73.3 in a [facility] [employer] [facility] of 11 years and has been [...] hours a night Mass of right breast 353 0416347 8530592 N63.10 upper outer quadrant @10-11 o'clock, 2-3 cm from nipple, semi-firm, smooth, moveable and non-tender Rx breast ultrasound [id number] Alysha Vargas APN [facility] [address] [place] [address] 11/01/2020 08:29:13 11/03/2020 03:49:12 Amenorrhea 71274916 N91.2 Health Concerns Section Related Observation LastModified by Organization Detai ls LastModified Time None Recorded Concern Status LastModified by Organization Details LastModified Time None Recorded Advance Directives Directive N: educated Payers Encounter Date Sequence Insurance Name Policy Number Policy Reagan Covered Member ID Reagan Member ID Guarantor Name 03/23/2019 1 [facility] (MEDICAID REPLACEMENT - HMO) Georgie Kincaid [id number] Georgie Kincaid 06/03/2019 1 [facility] (MEDICAID REPLACEMENT - HMO) Georgie Kincaid [id number] Georgie Kincaid 09/03/2019 1 [facility] (MEDICAID REPLACEMENT - HMO) Georgie Kincaid [id number] Georgie Kincaid 09/01/2020 1 [facility]) Georgie Kincaid [id number] Georgie Kincaid 11/01/2020 1 [facility] (MEDICAID REPLACEMENT - HMO) Georgie Kincaid [id number] Georgie Kincaid Notes Date Note Type Note Provider Name and Address Organization Details Recorded Time 03/23/2019 text/html 28yo presenting for annual RN RESOURCE NURSE exam. Po Tamez MD [address] [place] [address], [phone] 03/23/2019 12:34:18 06/03/2019 text/html 28yo LMP 05/16/19 presents for followup of abnormal pap smear Po Tamez MD [address] [place] [address], [address] [place] [address] 06/03/2019 11:50:19 09/03/2019 text/html 29yo LMP of 08/14/2019 presenting for concern of abnormal uterine bleeding. Po Tamez MD [address] [place] [address], [phone] 09/03/2019 17:54:22 09/01/2020 text/html Annual GYNReport ed bypatient.History: no gynecologic complaints Menstrual cycle:Normal menses Urinary symptoms:No hematuria; No incontinence Vulva:No genital lesion Vagina:Normal vaginal discharge Breast:No breast pain; No breast lump; No nipple discharge Current Contraception:[place] gamous relationship; Requests testing for sexually transmitted [...] + 06/2019 colop benign) Aarti Don APN [address] [place], [address], [facility] 09/01/2020 12:47:10 OBGyn Episode Ob Episode Information Episode Created Date Number of Fetuses Patient Bloodtype Patient rh Status Prepregnancy Weight lbs Domestic Partner Domestic Partner Phone Father Name Afterschool Babysitter Status 09/01/20 20 1 CLOSED Fetus Data First Name Last Name Admitted to NICU Weight (g) Sex Living Outcome Pediatric Complications Fetus ID Race Codes Race Delivery Type 4139.02 7 M Full Term 18002 Emerson Calculation Initial Emerson Date Initial Exam [...]
--- OUTSIDE RECORDS SUMMARY | 2025-02-05 15:27 | XMS_ITS | Clinical Summary ---
Author Organization [facility] Address [address] [place] [address] Care Team Providers Care Geology Instructor Name Role Phone Unavailable Primary Care Provider [...]
--- OUTSIDE RECORDS SUMMARY | 2025-02-05 15:27 | XMS_ITS | Clinical Summary ---
Author Organization [facility] Address [address] [place] [address] Care Team Providers Care Sales And Marketing Analyst Name Role Phone Unavailable Primary Care Provider [...]
--- OUTSIDE RECORDS SUMMARY | 2025-02-05 15:27 | XMS_ITS | Clinical Summary ---
Author Organization [facility] Address [address] [place] [address] Care Team Providers Care Body Shop Estimator Name Role Phone Unavailable Primary Care Provider [...] [place] [phone]
== END 2025-02-05 14:08 | disposition home or self-care (01) ==
PROVIDERS: PCP Internal Medicine; Visit Provider Internal Medicine
DX: M54.2 Cervicalgia (principal); M25.511 Pain in right shoulder; W00.9XXA Unspecified fall due to ice and snow, initial encounter

== ENCOUNTER → 2025-02-05 13:45 | Outpatient (BNVA) | payer OTHER, SELFPAY | PROVIDERS: PCP Internal Medicine; Visit Provider Internal Medicine | DX: M54.2 Cervicalgia (principal); M25.511 Pain in right shoulder; W00.9XXD Unspecified fall due to ice and snow, subsequent encounter | CPT/HCPCS: 99212 ==

== ENCOUNTER 2025-02-19 10:50 | Outpatient (AMB) | payer OTHER, SELFPAY ==
[2025-02-19 11:01] VITALS: BP 110/76; PULSE 70; O2SAT 98; BMI 36.4
--- NOTE | 2025-02-19 11:01 | A.OFFPC_ITS ---
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 Required: No Accompanied by: Self / Same As Patient Allergies amoxicillin [AMOXICILLIN] Allergy (Unknown, Verified 02/19/25 11:02) RASH, rash, swelling, hives sulfamethoxazole [From BACTRIM] Allergy (Unknown, Verified 02/19/25 11:02) HIVES trimethoprim [From BACTRIM] Allergy (Unknown, Verified 02/19/25 11:02) HIVES Medication List - Last Reconciled 02/19/25 by Erlin Boston MD amitriptyline 10 mg PO BEDTIME aspirin 162 mg PO DAILY Tobacco use date assessed: 02/05/25 Dental Screening Dental Screen Date: 02/05/25 HPI Annual PE HPI Details The patient is a 34-year-old female presenting for a physical examination and wellness visit. - She has been diagnosed with antiphosph olipid antibody syndrome, with last hematology consultation three months ago. Dr. Li [facility] - Migraine with aura is managed with ami triptyline, providing relief. - Congenital heart defect necessitating pacemaker implantation; - Past mammogram evaluated breast cysts with no malignancy detected. - Experiences occasional numbness in her hand during activities like driving. - Reports shoulder discomfort that has i mproved - Describes joint cracking and intermitt ent pain, recognized possible early arthritis due to family history. - Family has a significant history of di abetes, and she is proactive about her diet to manage borderline diabetes status. Health Maintenance - Ordered comprehensive lab tests includ ing cholesterol and thyroid function due to family history of diabetes. - Discussed dietary habits and continued healthy eating to manage diabetes risk. - Encouraged shoulder and upper limb exe rcises which have shown improvement. - Reviewed breast health and noted previ ous mammogram results, ensuring routine follow-up. [place] [facility] new Cardiology [facility] O[facility] Medications - Amitriptyline for managing migraine wi aura Diagnostic results - Previous laboratory work in November i ndicated normal CBC, kidney function, and liver enzymes. - Previous mammogram evaluated breast cy sts with no concerning findings. Patient Instructions - Continue with regular exercise, partic ularly focusing on upper body and shoulders. - Elevate feet to alleviate swelling aft er work. - Keep a careful diet to maintain health y blood sugar levels due to family history. - Schedule blood tests before breakfast, ensuring fasting for more accurate results. Follow-up 1 year physical exam Review of Systems. - General: No fever no chills - Neurological: No headaches no dizzin ess - Ear nose throat: No sore throat no hearing difficulty no ear pain - Cardiovascular: No syncope, no chest pain, no palpitations - Gastrointestinal: No nausea vomiting or diarrhea - Endocrine: No polyuria polydipsia no heat intolerance - Genitourinary: No dysuria - Skin: No new complaints Physical Exam General: Cooperative, healthy appearing, comfortable, no acute distress Orientation: Patient oriented x3 Head: Normal to inspection Ears: Within normal limit visually Nose: Normal external nose present Face and sinus: Normal facial exam Eyes: Appearance normal, extraocular movement intact pupils reactive Neck: Normal visual inspection and supple Respiratory: Normal respiratory effort and able to speak in complete sentences. Clear to auscultation, no stridor Cardiovascular: S1 and S2, history of pacemaker cardiac due to congenital heart defect GI: Normal to inspection. Soft to palpation and nontender Skin: Turgor normal, no acute findings chest scar from cardiac surgery Neuro: Patient oriented x3, motor sensory intact, balance intact, tandem pass Extremities: Normal to inspection, [facility] Medical History Pacemaker Pain in lower jaw No known health problems Surgical History No pertinent past surgical history Family History Maternal Grandfather Bladder cancer Renal cancer Social History Housing: Apartment Patient Tobacco Use Status: Current everyday Tobacco user e-Cigarette/Vaping Use: Never Used Substance Use Type: Marijuana service: No Current occupational status: employed Cognitive needs: No Hearing needs: No Vision needs: Yes Questionnaire Thrive Questionnaire Date Thrive assessed: 02/05/25 I am a: Patient What is your living situation today?: I have a steady place to live Within the past 12 months, did the food you bought not last and you didn't have the money to get more?: Sometimes True Within the past 12 months, did you worry whether your food would run out before you got money to buy more?: Sometimes True Do you have trouble paying for medicines?: I choose not to answer this question Do you have trouble getting transportation to medical appointments?: No Do you have trouble paying your heating and electricity bill?: Yes Do you have trouble taking care of your child, family member or friend?: No Do you have trouble with day-to-day activities such as bathing, preparing meals, shopping, managing finances, etc.?: No Are you currently unemployed and looking for a job?: No Are you interested in more education?: No Currently or been in a relationship where the following occur: No concerns reported THRIVE Score: 3 ROSCOE-7 AMB Questionnaire ROSCOE-7 Date ROSCOE - 7 assessed: 02/19/25 Feeling nervous, anxious, or on edge: 1 = Several days Not being able to stop or control worryin = Several days Worrying too much about different things: 1 = Several days Trouble relaxin = Several days Being so restless that it is hard to sit still: 1 = Several days Becoming easily annoyed or irritable: 1 = Several days Feeling afraid as if something awful might happen: 1 = Several days Total ROSCOE-7 score (0-4 normal; 5-9 mild; 10-14 moderate; 15-21 severe): 7 Source: Developed by Drs. Giorgi Ventura, Graciela Shahid, Estuardo Paiz and colleagues, with an educational paddy from [employer]. Physical exam (Primary Care) Vital Signs: Last Vital Signs Pulse 70 02/19/25 11:01 BP 110/76 02/19/25 11:01 Pulse Ox 98 02/19/25 11:01 Oxygen Delivery Method Room Air 02/19/25 11:01 BMI result Body Mass Index 36.4 Tobacco/Smoking Status: Tobacco use Status Tobacco use date assessed 02/05/25 02/19/25 11:03 Patient Tobacco Use Status Current everyday Tobacco 02/19/25 11:03 e-Cigarette/Vaping Use Never Used 02/19/25 11:03 Thrive Assessment: Date of Thrive Assessment Date Thrive assessed 02/05/25 02/19/25 11:03 Currently or been in a relationship where the following occur: No concerns reported Coding Level of Care Code Est Pt Level 3 (48479) Est Pt Prev Care 18-39y(42308) Diagnoses Encounter for general adult medical examination with abnormal findings Z00.01 Migraine with aura and without status migrainosus, not intractable G43.109 Status migrainosus presence: without status migrainosus Intractability: not intractable Antiphospholipid antibody syndrome D68.61 S/P placement of cardiac pacemaker Z95.0 Class 2 severe obesity due to excess calories with serious comorbidity and body mass index (BMI) of 35.0 to 35.9 in adult E66.01; Z68.35 Obesity classification: adult class 2 (BMI 35 - 39.9) Serious obesity comorbidity presence: with serious comorbidity Body mass index: BMI 35.0-35.9 Assessment & Plan Assessment & Plan (1) Encounter for general adult medical examination with abnormal findings: Code(s): Z00.01 - Encounter for general adult medical examination with abnormal findings Category: Medical (2) Migraine headache with aura: Code(s): G43.109 - Migraine with aura, not intractable, without status migrainosus Category: Medical Qualifiers: Status migrainosus presence: without status migrainosus Intractability: not intractable Qualified Code(s): G43.109 - Migraine with aura, not intractable, without status migrainosus (3) Antiphospholipid antibody syndrome: Code(s): D68.61 - Antiphospholipid syndrome Category: Medical (4) S/P placement of cardiac pacemaker: Code(s): Z95.0 - Presence of cardiac pacemaker Category: Surgical (5) Obesity due to excess calories: Code(s): E66.09 - Other obesity due to excess calories Category: Medical Qualifiers: Obesity classification: adult class 2 (BMI 35 - 39.9) Serious obesity comorbidity presence: with serious comorbidity Body mass index: BMI 35.0-35.9 Qualified Code(s): E66.01 - Morbid (severe) obesity due to excess calories; Z68.35 - Body mass index [BMI] 35.0-35.9, adult Plan The patient is a 34-year-old female presenting for a physical examination and wellness visit. - She has been diagnosed with antiphospholipid antibody syndrome, with last hematology consultation three months ago. Dr. Li [facility] - Migraine with aura is managed with amitriptyline, providing relief. - Congenital heart defect necessitating pacemaker implantation; - Past mammogram evaluated breast cysts with no malignancy detected. - Experiences occasional numbness in her hand during activities like driving. - Reports shoulder discomfort that has improved - Describes joint cracking and intermittent pain, recognized possible early arthritis due to family history. - Family has a significant history of diabetes, and she is proactive about her diet to manage borderline diabetes status. Health Maintenance - Ordered comprehensive lab tests including cholesterol and thyroid function due to family history of diabetes. - Discussed dietary habits and continued healthy eating to manage diabetes risk. - Encouraged shoulder and upper limb exercises which have shown improvement. - Reviewed breast health and noted previous mammogram results, ensuring routine follow-up. [place] [facility] Hemat[facility] new Cardiology [facility] O[facility] Medications - Amitriptyline for managing migraine with aura Diagnostic results - Previous laboratory work in November indicated normal CBC, kidney function, and liver enzymes. - Previous mammogram evaluated breast cysts with no concerning findings. Patient Instructions - Continue with regular exercise, particularly focusing on upper body and shoulders. - Elevate feet to alleviate swelling after work. - Keep a careful diet to maintain healthy blood sugar levels due to family history. - Schedule blood tests before breakfast, ensuring fasting for more accurate results. Follow-up 1 year physical exam Orders: Orders Complete Blood Count Auto Diff Today D68.61 - Antiphospholipid syndrome, E66.01 - Morbid (severe) obesity due to excess calories, Z00.01 - Encounter for general adult medical examination with abnormal findings, Z68.35 - Body mass index [BMI] 35.0-35.9, adult, Z95.0 - Presence of cardiac pacemaker Vitamin D 25-OH (D2 and D3) Today D68.61 - Antiphospholipid syndrome, E66.01 - Morbid (severe) obesity due to excess calories, Z00.01 - Encounter for general adult medical examination with abnormal findings, Z68.35 - Body mass index [BMI] 35.0-35.9, adult, Z95.0 - Presence of cardiac pacemaker TSH reflex Free T4 Today D68.61 - Antiphospholipid syndrome, E66.01 - Morbid (severe) obesity due to excess calories, Z00.01 - Encounter for general adult medical examination with abnormal findings, Z68.35 - Body mass index [BMI] 35.0-35.9, adult, Z95.0 - Presence of cardiac pacemaker Comprehensive [place]. Panel Fast Today D68.61 - Antiphospholipid syndrome, E66.01 - Morbid (severe) obesity due to excess calories, Z00.01 - Encounter for general adult medical examination with abnormal findings, Z68.35 - Body mass index [BMI] 35.0-35.9, adult, Z95.0 - Presence of cardiac pacemaker Lipid Panel Today D68.61 - Antiphospholipid syndrome, E66.01 - Morbid (severe) obesity due to excess calories, Z00.01 - Encounter for general adult medical examination with abnormal findings, Z68.35 - Body mass index [BMI] 35.0-35.9, adult, Z95.0 - Presence of cardiac pacemaker Vitamin B12 Today D68.61 - Antiphospholipid syndrome, E66.01 - Morbid (severe) obesity due to excess calories, Z00.01 - Encounter for general adult medical examination with abnormal findings, Z68.35 - Body mass index [BMI] 35.0-35.9, adult, Z95.0 - Presence of cardiac pacemaker Ferritin Today D68.61 - Antiphospholipid syndrome, E66.01 - Morbid (severe) obesity due to excess calories, Z00.01 - Encounter for general adult medical examination with abnormal findings, Z68.35 - Body mass index [BMI] 35.0-35.9, adult, Z95.0 - Presence of cardiac pacemaker Medications: Refilled amitriptyline 10 mg PO BEDTIME 90 tabs 3RF
== END 2025-02-19 11:22 | disposition home or self-care (01) ==
LOC: HO.HMCC 10:51
PROVIDERS: PCP Internal Medicine; Visit Provider Internal Medicine
DX: Z00.00 Encounter for general adult medical examination without abnormal findings (principal); D68.61 Antiphospholipid syndrome; E66.01 Morbid (severe) obesity due to excess calories; Z68.35 Body mass index [BMI] 35.0-35.9, adult; G43.109 Migraine with aura, not intractable, without status migrainosus; Z95.0 Presence of cardiac pacemaker

== ENCOUNTER → 2025-02-19 10:50 | Outpatient (BNVA) | payer OTHER, SELFPAY | PROVIDERS: PCP Internal Medicine; Visit Provider Internal Medicine | DX: Z00.01 Encounter for general adult medical examination with abnormal findings (principal); G43.109 Migraine with aura, not intractable, without status migrainosus; D68.61 Antiphospholipid syndrome; E66.01 Morbid (severe) obesity due to excess calories; Z68.35 Body mass index [BMI] 35.0-35.9, adult; Z71.3 Dietary counseling and surveillance; Z95.0 Presence of cardiac pacemaker | CPT/HCPCS: 99212; 99395 ==

== ENCOUNTER 2025-02-26 10:59 | Outpatient (REF) | payer OTHER, SELFPAY ==
[2025-02-26 13:13] LABS: MANUAL DIFF FLAG NO
[2025-02-26 13:46] LABS: Basophils Percent Auto 0.5 % (0-2); Eosinophils Absolute Auto 0.2 X10*3/uL (0.0-0.4); Eosinophils Percent Auto 2.4 % (0-4); Hematocrit 41.9 % (37.0-47.0); Hemoglobin 14.1 g/dl (12.0-16.0); Imm Gran Abs Auto 0.02 X10*3/uL (0.00-0.03); Imm Gran Pct Auto 0.3 % (0.0-0.4); Lymphocytes Absolute Auto 3.1 X10*3/uL (1.2-4.9); Lymphocytes Percent Auto 42.6 % (20-40); Mean Corpuscular HGB Conc 33.7 g/dl (31.0-35.0); Mean Corpuscular Hemoglobin 30.9 pg (27.0-33.0); Mean Corpuscular Volume 91.7 fL (80.0-98.0); Mean Platelet Volume 11.8 fL (9.4-12.3); Monocytes Absolute Auto 0.5 X10*3/uL (0.1-1.2); Monocytes Percent Auto 6.1 % (2-11); Neutrophils Absolute Auto 3.5 x10*3/uL (2.0-8.3); Neutrophils Percent Auto 48.1 % (45-73); Platelet Count 226 X10*3/uL (160-400); Red Blood Count 4.57 X10*6/uL (4.20-5.50); Red Cell Distribution Width 12.5 % (11.0-16.0); White Blood Count 7.4 X10*3/uL (4.8-10.8)
[2025-02-26 14:08] LABS: Alanine Aminotransferase 25 U/L (0-31); Alkaline Phosphatase 49 U/L (39-117); Anion Gap 9 (12-20); Aspartate Amino Transferase 19 U/L (5-31); Bilirubin Total 0.3 mg/dL (0.0-1.0); Blood Urea Nitrogen 14 mg/dL (9-16); Calcium 8.8 mg/dL (8.4-10.2); Carbon Dioxide 24 mmol/L (22-29); Chloride 108 mmol/L (96-108); Cholesterol 200 mg/dL (<200); Estimated Glomerular Filt Rate > 60; Ferritin 87 ng/mL (10-122); Glucose Fasting 95 mg/dL (60-99); HDL Cholesterol 50 mg/dL (>40); LDL Cholesterol Calculated 131 mg/dL (<100); Potassium 4.4 mmol/L (3.3-5.1); Sodium 137 mmol/L (135-145); TSH reflex Free T4 1.11 uIU/mL (0.32-4.0); Total Protein 7.1 g/dL (6.5-8.0); Triglycerides 99 mg/dL (<150)
[2025-02-26 14:13] LABS: Vitamin B12 1351 pg/mL (200-900)
[2025-03-04 13:38] LABS: Vitamin D 25-OH, D2 <4 ng/mL; Vitamin D 25-OH, D3 27 ng/mL; Vitamin D 25-OH, Total 27 ng/mL (30-100)
== END 2025-02-26 11:00 | disposition home or self-care (01) ==
LOC: HO.HMGCLDS 10:59
PROVIDERS: PCP Internal Medicine; Visit Provider Internal Medicine
DX: Z00.01 Encounter for general adult medical examination with abnormal findings (principal); Z95.0 Presence of cardiac pacemaker; M25.561 Pain in right knee; E66.01 Morbid (severe) obesity due to excess calories; Z68.35 Body mass index [BMI] 35.0-35.9, adult; D68.61 Antiphospholipid syndrome
CPT/HCPCS: 36415; 80053; 80061; 82306; 82607; 82728; 84443; 85025; 99212

== ENCOUNTER 2025-02-26 11:09 | Outpatient (AMB) | payer OTHER, SELFPAY ==
[2025-02-26 11:45] VITALS: BP 120/82; PULSE 88; O2SAT 98
--- NOTE | 2025-02-26 11:45 | AM.OFFWIN_ITS ---
Intake Vital Signs 02/26/25 11:45 Weight 211 lb BP 120/82 Blood Pressure Location Rt brachial Position Sitting Pulse 88 Pulse Source Pulse Oximeter Pulse Oximetry (%) 98 Oxygen Delivery Method Room Air Intake Visit Reasons: EP RT knee swelling Intake Note: Patient here for right knee pain Patient Tobacco Use Status: Current everyday Tobacco user Allergies amoxicillin [AMOXICILLIN] Allergy (Unknown, Verified 02/26/25 11:47) RASH, rash, swelling, hives sulfamethoxazole [From BACTRIM] Allergy (Unknown, Verified 02/26/25 11:47) HIVES trimethoprim [From BACTRIM] Allergy (Unknown, Verified 02/26/25 11:47) HIVES Do you need a note to return to daycare/school/sports/work: No HPI EP RT knee swelling HPI Details This is a 34-year-old female patient who presents to the walk-in clinic today with right anterior knee pain, which started yesterday. She states that she has been trying to exercise more lately, and has been using the elliptical machine. Knee pain started following exercise. She denies any acute injury, fall, or popping sensation of knee. She denies any significant swelling. Denies any weakness in that knee. [facility] Medical History Pacemaker Pain in lower jaw No known health problems Surgical History No pertinent past surgical history Family History Maternal Grandfather Bladder cancer Renal cancer Social History Housing: Apartment Patient Tobacco Use Status: Current everyday Tobacco user e-Cigarette/Vaping Use: Never Used Substance Use Type: Marijuana service: No Current occupational status: employed Cognitive needs: No Hearing needs: No Vision needs: Yes Review of Systems Const All systems reviewed & are unremarkable except as noted in HPI and below Physical Exam Vital Signs: Last Vital Signs Pulse 88 02/26/25 11:45 BP 120/82 02/26/25 11:45 Pulse Ox 98 02/26/25 11:45 Oxygen Delivery Method Room Air 03/28/25 11:45 Const General: cooperative, healthy appearing, comfortable and no acute distress HEENT Head: Yes normal to inspection Resp Effort & Inspection: normal respiratory effort Skin General skin exam: no rashes or lesions noted Extrem General: Yes capillary refill normal and Yes no clubbing, cyanosis or edema Right lower extremity: knee (mild ttp lateral aspect ant. knee, no swelling) Details: normal to inspection, normal ROM and knee ligament exam normal Psych Appearance: grossly normal Mental Status: mental status grossly normal Speech and movement: Normal speech and movement present Assessment & Plan Assessment & Plan (1) Pain in lateral portion of right knee: Code(s): M25.561 - Pain in right knee Plan: Presentation consistent with mild knee sprain. Ligament exam was normal, ROM normal. I applied Kaleb wrap to that right knee, and recommended patient apply ice intermittently, and elevate extremity this evening. I am going to prescribe her a short course of NSAIDs, which we reviewed indications, use, possible side effects of. I encouraged her to utilize exercises with less impact on her knee, such as free weights or stationary bike once her symptoms improve. If she does not improve with treatment, or if symptoms worsen, she can return to the clinic for further evaluation. She verbalizes understanding and agrees to plan. Medications: New meloxicam Take once a day with food for 7 days 15 mg PO DAILY 7 days 7 tabs 0RF M25.561 - Pain in right knee Coding Level of Care Code Est Pt Level 4 (50168) Diagnoses Pain in lateral portion of right knee M25.561
== END 2025-02-26 12:34 | disposition home or self-care (01) ==
PROVIDERS: PCP Internal Medicine; Visit Provider Nurse Practitioner Family
DX: M25.561 Pain in right knee (principal)

== ENCOUNTER 2025-03-17 08:40 | Outpatient (AMB) | payer OTHER, SELFPAY ==
--- NOTE | 2025-03-17 08:43 | MHC.OFFWIV ---
Intake Vital Signs 03/17/25 08:46 Height 5 ft 4 in Weight 214 lb BMI 36.7 BP 126/80 Blood Pressure Location Lt brachial Position Sitting Pulse 81 Pulse Source Pulse Oximeter Pulse Oximetry (%) 99 Oxygen Delivery Method Room Air Intake Visit Reasons: EP Sprained lt knee? Intake Note: Patient here for left knee pain that started yesterday afternoon, unable to bare weight on it. Patient Tobacco Use Status: Current everyday Tobacco user Allergies amoxicillin [AMOXICILLIN] Allergy (Unknown, Verified 03/17/25 08:46) RASH, rash, swelling, hives sulfamethoxazole [From BACTRIM] Allergy (Unknown, Verified 03/17/25 08:46) HIVES trimethoprim [From BACTRIM] Allergy (Unknown, Verified 03/17/25 08:46) HIVES Do you need a note to return to daycare/school/sports/work: Yes HPI HPI Comments History of Present Illness Details History of Present Illness - The patient is a 34-year-old female presenting with acute left knee pain. - The symptoms started while she was at work yesterday, around 2:00 PM, with no specific injury reported. - She describes the pain as severe and states the left knee is more problematic than her previously problematic right knee. - There is reported swelling and tightness, with difficulty in bending and straightening the knee. 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 Long periods of standing without rest. - She has a potential autoimmune condition but remains unsure of the specifics. - Denies any tick bites, rash or exposure to outdoors recently. Physical Exam General: Cooperative, healthy appearing, comfortable, no acute distress and well developed Orientation: Patient oriented x3 Limitations: Limited ability to bear weight on the left knee, requires crutches Head: Normal to inspection Ears: Hearing grossly normal bilaterally Nose: Normal External nose present Face and sinus: Normal facial exam Eyes: Appearance normal, both eyes and all related structures Neck: Normal visual inspection and Yes full ROM Respiratory: Normal respiratory effort and able to speak in complete sentences. Skin: No rashes or lesions noted Neuro: Patient oriented x3 Extremities: Left knee with edema and ttp superior to patella limited range of motion, pain on bending and straightening. No skin changes. negative Claudine's sign left side. [facility] Medical History Pacemaker Pain in lower jaw No known health problems Surgical History No pertinent past surgical history Family History Maternal Grandfather Bladder cancer Renal cancer Social History Housing: Apartment Patient Tobacco Use Status: Current everyday Tobacco user e-Cigarette/Vaping Use: Never Used Substance Use Type: Marijuana service: No Current occupational status: employed Cognitive needs: No Hearing needs: No Vision needs: Yes Review of Systems Const All systems reviewed & are unremarkable except as noted in HPI and below Physical Exam Vital Signs: Last Vital Signs Pulse 81 03/17/25 08:46 BP 126/80 03/17/25 08:46 Pulse Ox 99 03/17/25 08:46 Oxygen Delivery Method Room Air 03/17/25 08:46 BMI result Body Mass Index 36.7 Assessment & Plan Assessment & Plan (1) Left knee pain: Code(s): M25.562 - Pain in left knee Qualifiers: Chronicity: acute Qualified Code(s): M25.562 - Pain in left knee Plan: The patient will undergo an x-ray of the left knee to evaluate for any fractures, soft tissue injuries, or other abnormalities. My interpretation of the knee x-ray was no acute fracture or dislocation. This is likely bursitis based on the physical exam and no injury/trauma. Recommended she rest and use ice and anti-inflammatories. She will be provided with crutches to reduce weight-bearing and alleviate pain. A new prescription for meloxicam has been ensured for anti-inflammatory management. Emphasis is placed on the importance of addressing workplace conditions such as rest and hydration to aid recovery. Recommended patient follow up with her PCP if the pain is not improving gradually over the next week or 2. Patient was informed and verbally consented to the use of an ambient scribe for clinic note documentation during this visit. Orders: Orders XR knee LT 4V Today M25.562 - Pain in left knee Medications: Refilled meloxicam Take once a day with food for 7 days 15 mg PO DAILY 7 days 7 tabs 0RF M25.561 - Pain in right knee Coding Level of Care Code Est Pt Level 4 (36185) Diagnoses Acute pain of left knee M25.562 Chronicity: acute
[2025-03-17 08:46] VITALS: BP 126/80; PULSE 81; O2SAT 99; BMI 36.7
--- OUTSIDE RECORDS SUMMARY | 2025-03-17 09:01 | XMS_ITS | Clinical Summary ---
Author Organization [facility] Address [address] [place] [address] Care Team Providers Care Jackspooler Name Role Phone Unavailable Primary Care Provider Unavailabl e Allergies Active Allergy Reactions Criticality Noted Date Comments Amoxicillin Hives Medium 11/18/2021 Medications No known medications Social History Tobacco Use Types Packs/Day Years Used Date Smoking Tobacco: Never Assessed Comments Unknown Sex and Gender Information Value Date Recorded Sex Assigned at Not on file Legal Sex Female 11:38 PM EST Gender Identity Not on file Sexual [...] on patient's age to complete this topic Insurance [facility] [employer]
--- OUTSIDE RECORDS SUMMARY | 2025-03-17 09:01 | XMS_ITS | Clinical Summary ---
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
--- OUTSIDE RECORDS SUMMARY | 2025-03-17 09:01 | XMS_ITS | Clinical Summary ---
Author Organization 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
--- OUTSIDE RECORDS SUMMARY | 2025-03-17 09:02 | XMS_ITS | Data Portability ---
Author Organization [facility], [facility] NSc_PNU Address [address] [facility], [address] [address] Care Team Providers Care Shoe Folder Name Role Phone JURADO, BRANDON Primary Care Provider Assessment Encounter Date Assessment Date Assessment LastModified by Organization Details LastModified Time 11/01/2020 11/01/2020 See electronic result received. [email or web address] Not available 11/01/2020 10:10:12 Plan of Treatment Reminders Order Date Submit Date Provider Last Modified By Organization Details Last Modified Time Details Appointments None recorded. Lab test, urine 2019 020 [facility], [address] [place] [address], [address], 0 10:10:26 pap, LB + HR HPV + reflex HPV (16+18) 2019 020 [facility], [place], [address], 0 14:30:07 HIV 1+2 Ab + HIV1 p24 Ag, quantitativ e immunoassay , serum 2019 020 [facility], [place], [address], 1 05:02:01 RPR (rapid plasma reagin), serum 2019 020 [facility], [address], [place], [address], 1 05:02:01 HBsAg (hepatitis B surface Ag), serum 2019 [facility], [address], [place], [address], 1 05:02:26 hepatitis C virus Ab, serum 2019 [facility], [address], [place], [address], 05:02:23 CT + NG RNA, PCR, unspecified specimen - cervical 2019 [facility], [place], [address], 0 14:30:10 test, urine 2018 019 [email or web address] In-Office Order, Internal Use Only DO Not Attach Compendium DO Not Attach Compendium, Do Not Delete/merge, [id number] 9 17:54:01 biopsy, endocervica l 2018 019 [facility], 3 [facility], [address], [address], 9 16:57:57 biopsy, cervical 2018 019 [facility], [address], [address] [facility], [place], [address], 9 16:57:57 test, urine 2018 019 [email or web address] In-Office Order, Internal Use Only DO Not Attach Compendium DO Not Attach Compendium, Do Not Delete/merge, [id number] 9 10:36:04 pap, IG + HPV mRNA E6/E7 + reflex HPV (16+18+45) 2018 019 [place] [facility], [address] [facility], [address], [place], [address], 9 11:04:57 Referral None recorded. Procedures None recorded. Surgeries None recorded. Imaging US, breast, unilateral, complete - upper outer quadrant @10-11 o'clock, 2-3 cm from nipple, semi-firm, smooth, moveable and non-tender 2019 020 [facility] Radiology Department, [address] [place], [address], 1 05:02:09 US, breast 2018 019 [facility] Radiology Department, [address] [place], [address], 0 05:01:13 Medication Orders None recorded. Patient TargetsNo targets recorded. Patient Instructions Encounter Date Encounter Id Patient Instructions Last Modified By Organization Details Last Modified Time 03/23/2019 [id number] Quitting Tobacco : Care Instructions [email or web address] Not [...] encounter. [email or web address] Not available 03/23/2019 11:43:34 06/03/2019 [id number] abnormal Pap test: care instructions [email or web address] Not available 06/03/2019 10:56:02 colposcopy: before your procedure [email or web address] Not available 06/03/2019 10:56:02 I have examined and reviewed the patient encounter with the resident. Resident name: Dr. Wells I have reviewed the history, physical findings, assessment and plan of the resident. We have completely discussed all aspects of the encounter. Comments: [email or web address] Not available 06/03/2019 11:49:26 09/03/2019 [id number] learning about stress [email or web address] Not available 09/03/2019 [...] encounter. [email or web address] Not available 09/03/2019 14:20:24 09/01/2020 [id number] abnormal Pap test: care instructions [email or web address] Not available 09/01/2020 10:50:22 Well Visit, Ages 18 to 65: Care Instructions [email or web address] Not available 09/01/2020 10:50:22 learning about natural family planning [email or web address] Not available 09/01/2020 10:50:22 safer sex: care instructions [email or web address] Not available 09/01/2020 10:50:22 breast self-exam : care instructions [email or web address] Not available 09/01/2020 10:50:22 learning about sun damage and your skin Not available 09/01/2020 10:50:22 learning about depression Not available 09/01/2020 10:50:22 Reason for Referral None Reported. Results Created Date Observation Date Name Description Value Unit Range Abnormal Flag Note LastModifiedBy Organization Detail LastModifiedTime 09/03/20 19 09/03/2019 pregn claudia test, urine Unknown Analyte negati ve Not Available In-Office Order Internal Use Only DO Not Attach Compendium DO Not Attach Compendium, Do Not Delete/merge, [id number] 09/03/2019 14:11:11 03/23/20 19 03/23/2019 pregn claudia test, urine POC urine NEGATI VE . negati ve Not Available [facility] [address] [place], [address], 03/23/2019 10:25:12 06/05/20 19 05/06/2019 pregn claudia test, urine Unknown Analyte negati ve Not Available In-Office Order Internal Use Only DO Not Attach Compendium DO Not Attach Compendium, Do Not Delete/merge, [id number] 03/23/2019 10:22:36 06/03/20 19 06/03/2019 pregn claudia test, urine POC urine NEGATI VE . negati ve Not Available [facility] [address] [place], [address], 06/03/2019 10:05:35 09/03/20 19 09/03/2019 pregn claudia test, urine POC urine NEGATI VE . negati ve Not Available [facility] [address] [place], [address], 09/03/2019 14:37:41 09/01/20 20 09/08/2020 pap, LB + HR HPV + refle x HPV (16+1 8) clinical information: None given normal Not Available [facility] [place], [address], 09/08/2020 14:30:07 09/01/20 20 09/08/2020 pap, LB + HR HPV + refle x HPV (16+1 8) LMP: [id number] 20 normal Not Available [facility] [place], [address], 09/08/2020 14:30:07 09/01/20 20 09/08/2020 pap, LB + HR HPV + refle x HPV (16+1 8) prev. Pap: 201925 19 ASCUS HR HPV POSTIV E normal Not Available [facility] [employer] [facility] [place], [address], 09/08/2020 14:30:07 09/01/20 20 09/08/2020 pap, LB + HR HPV + refle x HPV (16+1 8) prev. BX: None given normal Not Available [facility] [place], [address], 09/08/2020 14:30:07 09/01/20 20 09/08/2020 pap, LB + HR HPV + refle x HPV (16+1 8) source: Cervix , Endoce rvix normal Not Available [facility] [address] [place], [address], 09/08/2020 14:30:07 09/01/20 20 09/08/2020 pap, LB + HR HPV + refle x HPV (16+1 8) statement of adequacy: normal Satis facto ry for evalu ation . Endoc ervic al/tr ansfo rmati on zone compo nent prese nt. Not Available [facility] [address] [place], [address], 09/08/2020 14:30:07 09/01/20 20 09/08/2020 pap, LB + HR HPV + refle x HPV (16+1 8) general categorizati on: EPITHE LIAL CELL ABNORM ALITY abnormal Not Available [facility] [address] [place], [address], 09/08/2020 14:30:07 09/01/20 20 09/08/2020 pap, LB + HR HPV + refle x HPV (16+1 8) interpretati on/result: Low Grade Squamo us Intrae pithel ial Lesion (LSIL) abnormal Not Available [facility] [address] [place], [address], 09/08/2020 14:30:07 09/01/20 20 09/08/2020 pap, LB + HR HPV + refle x HPV (16+1 8) cytotechnolo gist: normal LAS, CT (ASCP ) CT scree barrera locat ion: [facility] [address] [place] [address] Not Available [facility] [address] [place], [address], 09/08/2020 14:30:07 09/01/20 20 09/08/2020 pap, LB + HR HPV + refle x HPV (16+1 8) pathologist: normal Markun stephanie french MD (elec troni c signa ture) Board Certi fied in [place] [facility] Not Available [address] [place], [address], 09/08/2020 14:30:07 09/01/20 20 09/08/2020 pap, LB [...] clini kai infor matio n. Not Available [address] [place], [address], 09/08/2020 14:30:07 09/01/2009/08/2020 pap, LB + HR HPV + refle x HPV (16+1 8) HPV DNA, high risk, cervical Detect ed not detect ed abnormal Detec shey One or more High Risk HPV types (16,1 8,31, 33, 35,39 ,45,5 1,52, 56,58 ,59,6 6,68) was detec shey. Metho dolog y: Real Time PCR Not Available [address] [place], [address], 09/08/2020 14:30:07 09/01/2009/08/2020 CT + NG RNA, PCR, unspe cifie d speci men chlamydia trachomatis RNA, tma, urogenital NOT DETECT ED not detect ed normal Not Available [address] [place], [address], 09/08/2020 14:30:10 09/01/20 20 09/08/2020 CT + NG RNA, PCR, unspe cifie d speci men neisseria gonorrhoeae RNA, tma, urogenital NOT DETECT ED not detect ed normal Not Available [facility] [address] [place], [address], 09/08/2020 14:30:10 09/01/20 20 09/08/2020 CT + [...] e refer to https ://ed ucati on.qu estTripvisto. PicLyf/f aq/FA Q154 (This link is being provi ded for infor yaima cam/ educa garrett l purpo ses only. ) Not Available [facility] [address] [place], [address], 09/08/2020 14:30:10 11/01/20 20 11/01/2020 pregn claudia test, urine POC urine NEGATI VE . negati ve Not Available [address], [address], 11/01/2020 09:06:43 Result Notes None recorded. Problems No Known Problems Procedures Surgical History Date Name Laterality Status Provider Name and Address Organization Details Recorded Time 09/01/20 Nursing Points - Established Patient Level 3 completed Lyudmila Newberry [facility] 09/01/2020 10:04:59 09/03/20 Nursing Points - Established Patient Level 3 completed Emilee King [facility] 09/03/2019 14:10:14 06/03/20 19 Colposcopy completed Renuka Wells [facility] 06/03/2019 11:42:40 06/03/20 19 Nursing Points - Established Patient Level 3 completed Emilee King [facility] 06/03/2019 10:03:33 06/03/20 19 Colposcopy completed Lyudmila Rohith [facility] 09/01/2020 09:54:18 03/24/20 19 Date of Last Pap Smear completed Lyudmila Newberry [facility] 09/01/2020 09:53:52 03/23/20 19 Nursing Points - Established Patient Level 3 completed Eileen Grigsby [facility] 03/23/2019 09:47:08 12/02/19 19 Dilation and Curettage completed Lyudmila Newberry [facility] 09/01/2020 10:02:11 03/21/20 18 Nursing Points - Established Patient Level 3 completed Emilee King [facility] 03/21/2018 13:23:42 03/07/20 18 Nursing Points - Established Patient Level 3 completed Eileen Grigsby [facility] 03/07/2018 13:52:31 12/02/19 11 open heart surgery completed Solange Sandy MD [address] [place] [address], [id number] [place] [address] 03/23/2019 10:59:29 Imaging Results None recorded. Procedure Notes None recorded. Medical Equipment None Reported. Allergies Allergen ID Allergen Name Allergen Category Reaction Reaction Severity Criticality Documentation Date Start Date Code Code System Note Provider Name and Address Organization Details Recorded Time 34084 amoxicill in medicatio n rash severe Not available 03/07/2018 723 RxNorm Eileen Donald [facility] 8 13:50:15 Medications Name Sig Start Date [...] 0 162.56 cm 83 /min 33.3 kg/m2 63769.9 2 g 123 mm[Hg] 67 mm[Hg] Edda Owen [facility] 0 09:33:20 Date Recorded Heart rate Body weight Body mass index (BMI) Body height Systolic blood pressure Diastolic blood pressure Provider Name and Address Organization Details Last Updated DateTime 9 64 /min 88788.9 9 g 36.2 kg/m2 162.56 cm 95 mm[Hg] 46 mm[Hg] Dea Al [facility] 9 09:37:22 Date Recorded Body height Heart rate Body mass index (BMI) Body weight Systolic blood pressure Diastolic blood pressure Provider Name and Address Organization Details Last Updated DateTime 9 162.56 cm 76 /min 35.7 kg/m2 58092.2 1 g 118 mm[Hg] 70 mm[Hg] Dea Griffithmonica [facility] 9 09:46:13 Date Recorded Body height Body mass index (BMI) Body weight Heart rate Systolic blood pressure Diastolic blood pressure Provider Name and Address Organization Details Last Updated DateTime 9 162.56 cm 35.7 kg/m2 27963.2 1 g 70 /min 130 mm[Hg] 62 mm[Hg] Hilary Mik Montalvo [facility] 9 13:44:22 Social History Question Answer Notes LastModified by Organizat ion Details LastModified Time Tobacco Smoking Status Current Every Day [facility] 09/01[facility]2020 09:58:17 Do You Have An [...] 09/01/2020 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 2 Information not available 09/01/2020 Live Alone Or With Others? With Others Boyfriend And Child Information not available 09/01/2020 Preferred Language Hungarian Information not available 06/03/2019 Language(s) Spoken At Home Hungarian Information not available 09/01/2020 Barriers Noted No Informatio n not available 06/03/2019 Emotional State Denies Depression Denies Harmful Thoughts Information not available 03/07/2018 Cultural Barrier No Information not available 06/03/2019 Hearing Intact Yes Informatio n not available 09/01/2020 Language Barrier No Information not available 06/03/2019 Language(s) Understood Hungarian Information not available 09/01/2020 Literacy Barrier No [...] Of Varicella Yes Information not available 09/01/2020 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 Requested In Exam Room No Male/ Female [...] disorder had surger y shortl y afer [email or web address] Not available 09/01/2020 12:07:21 Medical History Condition [...] SNOMED-CT Code Diagnosis ICD10 Code Diagnosis Note [id number] Emilee singh, 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 [facility] [address] [place] [address] 09/04/2017 14:10:26 09/05/2017 13:22:23 Amenorrhea 02318457 N91.2 [id number] Kaylan Carson APN [facility] [address] [place] [address] 02/27/2018 14:53:01 02/27/2018 15:32:09 Amenorrhea 52156538 N91.2 [id number] Deandre Terry DO [facility] [address] [place] [address] 03/07/2018 13:16:39 03/07/2018 15:02:24 Missed miscarriage 21448675 O02.1 27yo at 10.5 wks by LMP [...] cm was 9 weeks, 5 days +/-6 days.[place] Rump Length (mm): 2.82 cm Mean Sac [...] 2 weeks postopD/W Dr Bebeto Sharma PGY4 [id number] Po Tamez MD [facility] [address] [place] [address] 03/21/2018 13:09:32 03/21/2018 14:00:48 Missed miscarriage 99224138 O02.1 27 yo s/p suction D &C [...] or PRN D/w Dr. 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 The patient reports regular monthly cycles [...] Dr. Maryam Sandy, PGY-3 Secondary physiologic amenorrhea 81989044 N91.1 Patient reports she always has 28-30 [...] LMP for secondary amenorrhea workup Breast lump 52726463 N63 .0 Patient reports a palpable breast [...] breast US ordered, to be scheduled at [facility] by patient, will follow results Body mass index 30+ - obesity 326013999 Z68.36 Discussed with the patient that weight loss, exercise and dietary changes can improve fertility. Counseled her that elevated BMI alone can have increased risk of spontaneou s miscarriag e and subfertili ty. Tobacco user 569572357 Z 72.0 Patient currently admits to smoking [...] her to seek resources in the community. [id number] Po Tamez MD [facility] [address] [place] [address] 06/03/2019 09:29:29 06/03/2019 12:21:26 Abnormal cervical Papanicolaou smear 903939855 R87.619 28yo LMP 05/16/19 presents for followup of abnormal pap smear UPT negative Pap 03/24/19: ASCUS HPV pos Plan: - consented for colposcopy and ECC - biopsies taken at [address] [place] [address] - will call with results and will RTC if further workup needed d/w Dr Joi Gould PGY4 [id number] Po Tamez MD [facility] [address] [place] [address] 09/03/2019 13:31:12 09/04/2019 08:08:52 Feeling stressed 491278833 Z73.3 27yo with LMP of 08/14/19 presenting for evaluation of cover cutter periods. She states her periods have become cover cutter and slightly more frequent over the last few months. She states the bleeding has only been 1-3 days on average with 1-2 pads used per day. She admits to feeling stressed. 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 She admits to intentiona l weight loss of 20 pounds with healthy eating and exercise. (3 pound weight loss documented in [place]). However, she admits to only getting 1-2 [...] of undetermined significance on cervical Papanicolaou smear 269063493 R87.610 03/24/19: ASCUS HR HPV positive pap smear 06/03/19: Colposcopy with biopsy at 12 o'clock & ECC: benign, endocervic al glands & squamous metaplasia Plan for repeat pap in 06/2020. 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 LMP 08/19/2020 (now regular, but reported [...] by patient and business card provided- social worker palliative care aware to expect call from bouchra romeo to start at age 40Encourag ed self-breas t exams, reviewed annual bulldozer operator exams, pap testingAdv ised to seek pre-concep tual counseling when/if desires to have children - Discussed well woman care, fertility awareness/ safer sex practices, self-breas t exam, pap guidelines , mammograms starting at age 40, colonoscop y starting at age 50, DEXA scan screening starting at age 65, seatbelt use, and sunscreen use. RTC in one year routine annual bulldozer operator or sooner if problems Atypical s quamous cells of undetermined significance on cervical Papanicolaou smear 595092453 R87.610 03/24/2019- ASCUS HPV positive 06/03/2019: Colposcopy with biopsy at 12 o'clock & ECC: benign, endocervic al glands & squamous metaplasia Pap w/ cotesting today Venereal d isease screening 027433791 Z11.3 GC/Ct collected Rx HIV, RPR, HBsAg, HCV Ab Increased stress 7106308 4 Z73.3 in a [facility] ip of 11 years and has been [...] hours a night Mass of right breast 940 3188700 7893695 N63.10 upper outer quadrant @10-11 o'clock, 2-3 cm from nipple, semi-firm, smooth, moveable and non-tender Rx breast ultrasound [id number] Alysha Vagras APN [facility] [address] [place] [address] 11/01/2020 08:29:13 11/03/2020 03:49:12 Amenorrhea 58477219 N91.2 Health Concerns Section Related Observation LastModified by Organization Detai ls LastModified Time None Recorded Concern Status LastModified by Organization Details LastModified Time None Recorded Advance Directives Directive N: educated Payers Encounter Date Sequence Insurance Name Policy Number Policy Reagan Covered Member ID Reagan Member ID Guarantor Name 03/23/2019 1 [facility] (MEDICAID REPLACEMENT - HMO) Georgie Kincaid [id number] Georgie Kincaid 06/03/2019 1 [facility] (MEDICAID REPLACEMENT - HMO) Georgie Kincaid [id number] Georgie Kincaid 09/03/2019 1 [facility] (MEDICAID REPLACEMENT - HMO) Georgie Kincaid [id number] Georgie Kincaid 09/01/2020 1 [facility] ([facility]ICA[facility] H[facility]) Georgie Kincaid [id number] Georgie Kincaid 11/01/2020 1 [facility] (MEDICAID REPLACEMENT - HMO) Georgie Kincaid [id number] Georgie Kincaid Notes Date Note Type Note Provider Name and Address Organization Details Recorded Time 03/23/2019 text/html 28yo presenting for annual SQUARE DANCE CALLER exam. Po Tamez MD [address] [place] [address], [phone] 03/23/2019 12:34:18 06/03/2019 text/html 28yo LMP 05/16/19 presents for followup of abnormal pap smear Po Tamez MD [address] [place] [address], [address] [place] [address] 06/03/2019 11:50:19 09/03/2019 text/html 29yo LMP of 08/14/2019 presenting for concern of abnormal uterine bleeding. Po Tamez MD [address] [place] [address], [phone] 09/03/2019 17:54:22 09/01/2020 text/html Annual GYNReport ed bypatient.History: no gynecologic complaints Menstrual cycle:Normal menses Urinary symptoms:No hematuria; No incontinence Vulva:No genital lesion Vagina:Normal vaginal discharge Breast:No breast pain; No breast lump; No nipple discharge Current Contraception:Garrett gamous relationship; Requests testing for sexually transmitted [...] 06/2019 colop benign) Aarti Don APN [address] [place], [address], [facility] 09/01/2020 12:47:10 OBGyn Episode Ob Episode Information Episode Created Date Number of Fetuses Patient Bloodtype Patient rh Status Prepregnancy Weight lbs Domestic Partner Domestic Partner Phone Father Name 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
== END 2025-03-17 09:35 | disposition home or self-care (01) ==
PROVIDERS: PCP Internal Medicine; Visit Provider Physician Assistant
DX: M25.562 Pain in left knee (principal)

== ENCOUNTER 2025-03-17 08:40 | Outpatient (REF) | payer OTHER, SELFPAY ==
--- NOTE | ~2025-03-17 | XR_ITS ---
EXAMINATION: XR KNEE 4 OR MORE VIEWS LEFT HISTORY: M25.562 - Pain in left knee COMPARISON: There are no prior studies available for comparison. FINDINGS: Four views of the left knee are submitted. Osseous mineralization is normal. There is no fracture or dislocation. The joint spaces are preserved. The soft tissues are unremarkable. There is no joint effusion. XR/XR knee LT 4V IMPRESSION: Unremarkable examination of the left knee. Electronically signed by: Giorgi Carroll MD 03/17/2025 09:47 AM EDT
--- OUTSIDE RECORDS SUMMARY | 2025-03-17 09:53 | XMS_ITS | Clinical Summary ---
Author Organization [facility] Address [address] [place] [address] Care Team Providers Care Hand Clipper Name Role Phone Unavailable Primary Care Provider [...] patient's age to complete this topic Insurance [facility]
--- OUTSIDE RECORDS SUMMARY | 2025-03-17 09:54 | XMS_ITS | Clinical Summary ---
Author Organization [facility] Address [address] [place] [address] Care Team Providers Care Hall Manager Name Role Phone Unavailable Primary Care [...]
--- OUTSIDE RECORDS SUMMARY | 2025-03-17 09:54 | XMS_ITS | Clinical Summary ---
Author Organization [facility] Address [address] [place] [address] Care Team Providers Care Furniture Finisher Apprentice Name Role Phone Unavailable Primary Care Provider [...]
== END 2025-03-17 08:41 | disposition home or self-care (01) ==
LOC: HO.HMGCX 08:40
PROVIDERS: PCP Internal Medicine; Visit Provider Physician Assistant
DX: M25.562 Pain in left knee (principal)
CPT/HCPCS: 73564; 99212

== ENCOUNTER → 2025-03-17 09:12 | Outpatient (BNV) | payer OTHER, SELFPAY | PROVIDERS: PCP Internal Medicine; Visit Provider Radiology Diagnostic Radiology | DX: M25.562 Pain in left knee (principal) | CPT/HCPCS: 73564 ==

== ENCOUNTER 2025-03-22 09:34 | Outpatient (AMB) | payer OTHER, SELFPAY ==
[2025-03-22 09:36] VITALS: BP 120/82; PULSE 70; O2SAT 98
--- NOTE | 2025-03-22 09:36 | AM.OFFWIN_ITS ---
Intake Vital Signs 03/22/25 09:36 Weight 214 lb BP 120/82 Blood Pressure Location Rt brachial Position Sitting Pulse 70 Pulse Source Pulse Oximeter Pulse Oximetry (%) 98 Oxygen Delivery Method Room Air Intake Visit Reasons: EP LT knee still painful Intake Note: Patient here for left knee pain that has improved a bit but still is very bothersome. Patient Tobacco Use Status: Current everyday Tobacco user Allergies amoxicillin [AMOXICILLIN] Allergy (Unknown, Verified 03/17/25 08:46) RASH, rash, swelling, hives sulfamethoxazole [From BACTRIM] Allergy (Unknown, Verified 03/17/25 08:46) HIVES trimethoprim [From BACTRIM] Allergy (Unknown, Verified 03/17/25 08:46) HIVES HPI HPI Comments History of Present Illness Details 34 y/o Female patient who [facility] with c/o Left Knee Pain for a week. She was seen here on 03/17/25 for similar concern. Had an Xray Left Knee that was negative. Denies Injury or trauma to the knee. Her Job involves standing for long hours. She has been using Meloxicam for pain relief with minimal results. [facility]LY [facility], [facility] Medical History Pacemaker Pain in lower jaw No known health problems Surgical History No pertinent past surgical history Family History Maternal Grandfather Bladder cancer Renal cancer Social History Housing: Apartment Patient Tobacco Use Status: Current everyday Tobacco user e-Cigarette/Vaping Use: Never Used Substance Use Type: Marijuana service: No Current occupational status: employed Cognitive needs: No Hearing needs: No Vision needs: Yes Review of Systems Const All systems reviewed & are unremarkable except as noted in HPI and below Physical Exam Vital Signs: Last Vital Signs Pulse 70 03/22/25 09:36 BP 120/82 03/22/25 09:36 Pulse Ox 98 03/22/25 09:36 Oxygen Delivery Method Room Air 03/22/25 09:36 Const General: no acute distress Nutritional Appearance: obese Orientation/consciousness: patient oriented x3 Neuro General: patient oriented x3, gait normal and moves all extremities Extrem Right lower extremity: normal to inspection and full ROM Left lower extremity: normal to inspection, full ROM and knee Details: normal to inspection, tenderness Location: of the patella and of the medial joint line and normal ROM; no swelling, no ecchymosis, no crepitus and no deformity Psych Speech and movement: Normal speech and movement present Assessment & Plan Assessment & Plan (1) Left knee pain: Code(s): M25.562 - Pain in left knee Qualifiers: Chronicity: acute Qualified Code(s): M25.562 - Pain in left knee Plan: Continue using Meloxicam as prescribed. Ordered Physical Therapy. Ice/Hot Rest Joint Knee Brace. Orders: Orders PT Evaluation and Treatment Today M25.562 - Pain in left knee Coding Level of Care Code Est Pt Level 4 (79397) Diagnoses Acute pain of left knee M25.562 Chronicity: acute Time Spent (min) 20
--- OUTSIDE RECORDS SUMMARY | 2025-03-22 09:36 | XMS_ITS | Clinical Summary ---
Author Organization [facility] Address [address] [place] [address] Care Team Providers Care Pit Operator Name Role Phone Unavailable Primary Care Provider [...]
--- OUTSIDE RECORDS SUMMARY | 2025-03-22 09:36 | XMS_ITS | Clinical Summary ---
Author Organization [facility] Address [address] [place] [address] Care Team Providers Care Flaker Operator Name Role Phone Unavailable Primary Care [...] patient's age to complete this topic Insurance [facility]
--- OUTSIDE RECORDS SUMMARY | 2025-03-22 09:37 | XMS_ITS | Data Portability ---
Author Organization [facility], [facility] NSc_PNU Address [address] [facility], [address] [address] Care Team Providers Care Cable Hooker Name Role Phone JURADO, BRANDON Primary Care Provider [phone] Assessment Encounter Date Assessment Date Assessment LastModified by Organization Details LastModified Time 11/01/2020 11/01/2020 See electronic result received. [email or web address] Not available 11/01/2020 10:10:12 Plan of Treatment Reminders Order Date Submit Date Provider Last Modified By Organization Details Last Modified Time Details Appointments None recorded. Lab test, urine 2019 020 [facility], [address] [place] [address], [address], 0 10:10:26 pap, LB + HR HPV + reflex HPV (16+18) 2019 020 [facility], [place], [address], 0 14:30:07 HIV 1+2 Ab + HIV1 p24 Ag, quantitativ e immunoassay , serum 2019 020 [facility], [place], [address], 1 05:02:01 RPR (rapid plasma reagin), serum 2019 020 [facility], [address], [place], [address], 1 05:02:01 HBsAg (hepatitis B surface Ag), serum 2019 [facility], [address], [place], [address], 1 05:02:26 hepatitis C virus Ab, serum 2019 [facility], [address], [place], [address], 05:02:23 CT + NG RNA, PCR, unspecified specimen - cervical 2019 [facility], [place], [address], 0 14:30:10 test, urine 2018 019 [email or web address] In-Office Order, Internal Use Only DO Not Attach Compendium DO Not Attach Compendium, Do Not Delete/merge, [id number] 9 17:54:01 biopsy, endocervica l 2018 019 [facility], [address] [facility], [address], [address], 9 16:57:57 biopsy, cervical 2018 019 [facility], [address], [address] [facility], [place], [address], 9 16:57:57 test, urine 2018 019 [email or web address] In-Office Order, Internal Use Only DO Not Attach Compendium DO Not Attach Compendium, Do Not Delete/merge, [id number] 10:36:04 pap, IG + HPV mRNA E6/E7 + reflex HPV (16+18+45) 2018 019 [facility], [address] [facility], [address], [place], [address], 9 11:04:57 Referral None recorded. Procedures None recorded. Surgeries None recorded. Imaging US, breast, unilateral, complete - upper outer quadrant @10-11 o'clock, 2-3 cm from nipple, semi-firm, smooth, moveable and non-tender 2019 020 [facility], [address] [place], [address], 1 05:02:09 US, breast 2018 019 [facility], [address] [place], [address], 0 05:01:13 Medication Orders None recorded. Patient TargetsNo targets recorded. Patient Instructions Encounter Date Encounter Id Patient Instructions Last Modified By Organization Details Last Modified Time 03/23/2019 [id number] Quitting Tobacco : Care Instructions [email or web address] Not [...] encounter. [email or web address] Not available 03/23/2019 11:43:34 06/03/2019 [id number] abnormal Pap test: care instructions [email or web address] Not available 06/03/2019 10:56:02 colposcopy: before your procedure [email or web address] Not available 06/03/2019 10:56:02 I have examined and reviewed the patient encounter with the resident. Resident name: Dr. Wells I have reviewed the history, physical findings, assessment and plan of the resident. We have completely discussed all aspects of the encounter. Comments: [email or web address] Not available 06/03/2019 11:49:26 09/03/2019 [id number] learning about stress [email or web address] Not available 09/03/2019 [...] encounter. [email or web address] Not available 09/03/2019 14:20:24 09/01/2020 [id number] abnormal Pap test: care instructions [email or web address] Not available 09/01/2020 10:50:22 Well Visit, Ages 18 to 65: Care Instructions [email or web address] Not available 09/01/2020 10:50:22 learning about natural family planning Not available 09/01/2020 10:50:22 safer sex: care instructions [email or web address] Not available 09/01/2020 10:50:22 breast self-exam : care instructions [email or web address] Not available 09/01/2020 10:50:22 learning about sun damage and your skin Not available 09/01/2020 10:50:22 learning about depression [email or web address] Not available 09/01/2020 10:50:22 Reason for Referral None Reported. Results Created Date Observation Date Name Description Value Unit Range Abnormal Flag Note LastModifiedBy Organization Detail LastModifiedTime 09/03/20 19 09/03/2019 pregn claudia test, urine Unknown Analyte negati ve Not Available In-Office Order Internal Use Only DO Not Attach Compendium DO Not Attach Compendium, Do Not Delete/merge, [id number] 09/03/2019 14:11:11 03/23/20 19 03/23/2019 pregn claudia test, urine POC urine NEGATI VE . negati ve Not Available [facility] [address] [place], [address], 03/23/2019 10:25:12 06/05/20 19 05/06/2019 pregn claudia test, urine Unknown Analyte negati ve Not Available In-Office Order Internal Use Only DO Not Attach Compendium DO Not Attach Compendium, Do Not Delete/merge, [id number] 03/23/2019 10:22:36 06/03/20 19 06/03/2019 pregn claudia test, urine POC urine NEGATI VE . negati ve Not Available [facility] [address] [place], [address], 06/03/2019 10:05:35 09/03/20 19 09/03/2019 pregn claudia test, urine POC urine NEGATI VE . negati ve Not Available [facility] [address] [place], [address], 09/03/2019 14:37:41 09/01/20 20 09/08/2020 pap, LB + HR HPV + refle x HPV (16+1 8) clinical information: None given normal Not Available [facility] [place], [address], 09/08/2020 14:30:07 09/01/20 20 09/08/2020 pap, LB + HR HPV + refle x HPV (16+1 8) LMP: [id number] 20 normal Not Available [facility] [place], [address], 09/08/2020 14:30:07 09/01/20 20 09/08/2020 pap, LB + HR HPV + refle x HPV (16+1 8) prev. Pap: [id number] 19 ASCUS HR HPV POSTIV E normal Not Available [facility] [place], [address], 09/08/2020 14:30:07 09/01/20 20 09/08/2020 pap, LB + HR HPV + refle x HPV (16+1 8) prev. BX: None given normal Not Available [facility] [place], [address], 09/08/2020 14:30:07 09/01/20 20 09/08/2020 pap, LB + HR HPV + refle x HPV (16+1 8) source: Cervix , Endoce rvix normal Not Available [facility] [address] [place], [address], 09/08/2020 14:30:07 09/01/20 20 09/08/2020 pap, LB + HR HPV + refle x HPV (16+1 8) statement of adequacy: normal Satis facto ry for evalu ation . Endoc ervic al/tr ansfo rmati on zone compo nent prese nt. Not Available [facility] [address] [place], [address], 09/08/2020 14:30:07 09/01/20 20 09/08/2020 pap, LB + HR HPV + refle x HPV (16+1 8) general categorizati on: EPITHE LIAL CELL ABNORM ALITY abnormal Not Available [facility] [address] [place], [address], 09/08/2020 14:30:07 09/01/20 20 09/08/2020 pap, LB + HR HPV + refle x HPV (16+1 8) interpretati on/result: Low Grade Squamo us Intrae pithel ial Lesion (LSIL) abnormal Not Available [facility] [employer] [address] [place], [address], 09/08/2020 14:30:07 09/01/20 20 09/08/2020 pap, LB + HR HPV + refle x HPV (16+1 8) cytotechnolo gist: normal LAS, CT (ASCP ) CT scree barrera locat ion: [facility] [address] [place] [address] Not Available [facility] [address] [place], [address], 09/08/2020 14:30:07 09/01/20 20 09/08/2020 pap, LB + HR HPV + refle x HPV (16+1 8) pathologist: normal Markun stephanie french MD (elec troni c signa ture) Board Certi fied in [facility] fl[facility] Patho logy Not Available [address] [place], [address], 09/08/2020 14:30:07 09/01/20 20 09/08/2020 pap, LB [...] clini kai infor matio n. Not Available [address] [place], [address], 09/08/2020 14:30:07 09/01/2009/08/2020 pap, LB + HR HPV + refle x HPV (16+1 8) HPV DNA, high risk, cervical Detect ed not detect ed abnormal Detec shey One or more High Risk HPV types (16,1 8,31, 33, 35,39 ,45,5 1,52, 56,58 ,59,6 6,68) was detec shey. Metho dolog y: Real Time PCR Not Available [address] [place], [address], 09/08/2020 14:30:07 09/01/2009/08/2020 CT + NG RNA, PCR, unspe cifie d speci men chlamydia trachomatis RNA, tma, urogenital NOT DETECT ED not detect ed normal Not Available [address] [place], [address], 09/08/2020 14:30:10 09/01/20 20 09/08/2020 CT + NG RNA, PCR, unspe cifie d speci men neisseria gonorrhoeae RNA, tma, urogenital NOT DETECT ED not detect ed normal Not Available [facility] [address] [place], [address], 09/08/2020 14:30:10 09/01/20 20 09/08/2020 CT + [...] e refer to https ://ed ucati on.qu estSozializeMe. eKonnekt/f aq/FA Q154 (This link is being provi ded for infor yaima cam/ educa garrett l purpo ses only. ) Not Available [facility] [address] [place], [address], 09/08/2020 14:30:10 11/01/20 20 11/01/2020 pregn claudia test, urine POC urine NEGATI VE . negati ve Not Available [address], [address], 11/01/2020 09:06:43 Result Notes None recorded. Problems No Known Problems Procedures Surgical History Date Name Laterality Status Provider Name and Address Organization Details Recorded Time 09/01/20 Nursing Points - Established Patient Level 3 completed Lyudmila Newberry [facility] 09/01/2020 10:04:59 09/03/20 Nursing Points - Established Patient Level 3 completed mEilee King [facility] 09/03/2019 14:10:14 06/03/20 19 Colposcopy completed Renuka Wells [facility] 06/03/2019 11:42:40 06/03/20 19 Nursing Points - Established Patient Level 3 completed Emilee King [facility] 06/03/2019 10:03:33 06/03/20 19 Colposcopy completed Lyudmila Rohith [facility] 09/01/2020 09:54:18 03/24/20 19 Date of Last Pap Smear completed Lyudmila Newberry [facility] 09/01/2020 09:53:52 03/23/20 19 Nursing Points - Established Patient Level 3 completed Eileen Grigsby [facility] 03/23/2019 09:47:08 12/02/19 19 Dilation and Curettage completed Lyudmila Newberry [facility] 09/01/2020 10:02:11 03/21/20 18 Nursing Points - Established Patient Level 3 completed Emilee King [facility] 03/21/2018 13:23:42 03/07/20 18 Nursing Points - Established Patient Level 3 completed Eileen Grigsby [facility] 03/07/2018 13:52:31 12/02/19 11 open heart surgery completed Solange Sandy MD [address] [place] [address], [id number] [place] [address] 03/23/2019 10:59:29 Imaging Results None recorded. Procedure Notes None recorded. Medical Equipment None Reported. Allergies Allergen ID Allergen Name Allergen Category Reaction Reaction Severity Criticality Documentation Date Start Date Code Code System Note Provider Name and Address Organization Details Recorded Time 94858 amoxicill in medicatio n rash severe Not available 03/07/2018 723 RxNorm Eileen Donald [facility] 8 13:50:15 Medications Name Sig Start [...] 0 162.56 cm 83 /min 33.3 kg/m2 67287.9 2 g 123 mm[Hg] 67 mm[Hg] Edda Owen [facility] 0 09:33:20 Date Recorded Heart rate Body weight Body mass index (BMI) Body height Systolic blood pressure Diastolic blood pressure Provider Name and Address Organization Details Last Updated DateTime 9 64 /min 75447.9 9 g 36.2 kg/m2 162.56 cm 95 mm[Hg] 46 mm[Hg] Dea Al [facility] 9 09:37:22 Date Recorded Body height Heart rate Body mass index (BMI) Body weight Systolic blood pressure Diastolic blood pressure Provider Name and Address Organization Details Last Updated DateTime 9 162.56 cm 76 /min 35.7 kg/m2 99665.2 1 g 118 mm[Hg] 70 mm[Hg] Dea Griffithmonica [facility] 9 09:46:13 Date Recorded Body height Body mass index (BMI) Body weight Heart rate Systolic blood pressure Diastolic blood pressure Provider Name and Address Organization Details Last Updated DateTime 9 162.56 cm 35.7 kg/m2 27751.2 1 g 70 /min 130 mm[Hg] 62 mm[Hg] Hilary Mik Montalvo [facility] 9 13:44:22 Social History Question Answer Notes LastModified by Organizat ion Details LastModified Time Tobacco Smoking Status Current Every Day [facility] 09/01/2020 09:58:17 Do You Have An [...] 09/01/2020 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 In Exam Room No Male/ Female [...] disorder had surger y shortl y afer [email or web address] Not available 09/01/2020 12:07:21 Medical History Condition [...] SNOMED-CT Code Diagnosis ICD10 Code Diagnosis Note [id number] Emilee singh, FRAME STRIPPER AND CRUSHER [facility] [address] [place] [address] 09/04/2017 14:10:26 09/05/2017 13:22:23 Amenorrhea 51041383 N91.2 [id number] Kaylan Carson APN [facility] [address] [place] [address] 02/27/2018 14:53:01 02/27/2018 15:32:09 Amenorrhea 74644399 N91.2 [id number] Deandre Terry DO [facility] [address] [place] [address] 03/07/2018 13:16:39 03/07/2018 15:02:24 Missed miscarriage 75147252 O02.1 27yo at 10.5 wks by LMP [...] cm was 9 weeks, 5 days +/-6 days.[place] Rump Length (mm): 2.82 cm Mean Sac [...] 2 weeks postopD/W Dr Bebeto Sharma PGY4 [id number] Po Tamez MD [facility] [address] [place] [address] 03/21/2018 13:09:32 03/21/2018 14:00:48 Missed miscarriage 58421171 O02.1 27 yo s/p suction D &C [...] or PRN D/w Dr. Joi Le-PGY- 1 [id number] Po Tamez MD [facility] [address] [place] [address] 03/23/2019 09:25:13 03/23/2019 11:40:35 Gynecologic examination 79020647 Z01.419 28yo with a LMP of 02/16/19 presenting for annual CHUTE FEEDER visit. The patient reports regular monthly cycles [...] Dr. Maryam Sandy, PGY-3 Secondary physiologic amenorrhea 35224327 N91.1 Patient reports she always has 28-30 [...] LMP for secondary amenorrhea workup Breast lump 58601113 N63 .0 Patient reports a palpable breast [...] US ordered, to be scheduled at [facility] by patient, will follow results Body mass index 30+ - obesity 079737770 Z68.36 Discussed with the patient that weight loss, exercise and dietary changes can improve fertility. Counseled her that elevated BMI alone can have increased risk of spontaneou s miscarriag e and subfertili ty. Tobacco user 233314777 Z 72.0 Patient currently admits to smoking [...] her to seek resources in the community. [id number] Po Tamez MD [facility] [address] [place] [address] 06/03/2019 09:29:29 06/03/2019 12:21:26 Abnormal cervical Papanicolaou smear 287465764 R87.619 28yo LMP 05/16/19 presents for followup of abnormal pap smear UPT negative Pap 03/24/19: ASCUS HPV pos Plan: - consented for colposcopy and ECC - biopsies taken at [address] [place] [address] - will call with results and will RTC if further workup needed d/w Dr Joi Gould PGY4 [id number] Po Tamez MD [facility] [address] [place] [address] 09/03/2019 13:31:12 09/04/2019 08:08:52 Feeling stressed 867823045 Z73.3 27yo with LMP of 08/14/19 presenting for evaluation of gasateria attendant periods. She states her periods have become gasateria attendant and slightly more frequent over the last few months. She states the bleeding has only been 1-3 days on average with 1-2 pads used per day. She admits to feeling stressed. 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 She admits to intentiona l weight loss of 20 pounds with healthy eating and exercise. (3 pound weight loss documented in [place]). However, she admits to only getting 1-2 [...] of undetermined significance on cervical Papanicolaou smear 327788975 R87.610 03/24/19: ASCUS HR HPV positive pap smear 06/03/19: Colposcopy with biopsy at 12 o'clock & ECC: benign, endocervic al glands & squamous metaplasia Plan for repeat pap in 06/2020. [id number] Aarti Don APN [facility] [address] [place] [address] 09/01/2020 09:20:28 09/01/2020 13:10:12 Gynecologic examination 62512896 Z01.419 30 yo presents for routine annual integrated logistics support manager visit. LMP 08/19/2020 (now regular, but reported [...] by patient and business card provided- social sciences department chair aware to expect call from bouchra romeo to start at age 40Encourag ed self-breas t exams, reviewed annual integrated logistics support manager exams, pap testingAdv ised to seek pre-concep tual counseling when/if desires to have children - Discussed well woman care, fertility awareness/ safer sex practices, self-breas t exam, pap guidelines , mammograms starting at age 40, colonoscop y starting at age 50, DEXA scan screening starting at age 65, seatbelt use, and sunscreen use. RTC in one year routine annual integrated logistics support manager or sooner if problems Atypical s quamous cells of undetermined significance on cervical Papanicolaou smear 138175390 R87.610 03/24/2019- ASCUS HPV positive 06/03/2019: Colposcopy with biopsy at 12 o'clock & ECC: benign, endocervic al glands & squamous metaplasia Pap w/ cotesting today Venereal d isease screening 239986539 Z11.3 GC/Ct collected Rx HIV, RPR, HBsAg, HCV Ab Increased stress 2402236 4 Z73.3 in a [facility] home ip of 11 years and has been [...] hours a night Mass of right breast 628 [id number] 6116086 N63.10 upper outer quadrant @10-11 o'clock, 2-3 cm from nipple, semi-firm, smooth, moveable and non-tender Rx breast ultrasound [id number] Alysha Vargas APN [facility] [address] [place] [address] 11/01/2020 08:29:13 11/03/2020 03:49:12 Amenorrhea 13812071 N91.2 Health Concerns Section Related Observation LastModified by Organization Detai ls LastModified Time None Recorded Concern Status LastModified by Organization Details LastModified Time None Recorded Advance Directives Directive N: educated Payers Encounter Date Sequence Insurance Name Policy Number Policy Reagan Covered Member ID Reagan Member ID Guarantor Name 03/23/[address] [facility] (MEDICAID REPLACEMENT - HMO) Georgie Kincaid [id number] Georgie Kincaid 06/03/[address] [facility] (MEDICAID REPLACEMENT - HMO) Georgie Kincaid [id number] Georgie Kincaid 09/03/[address] [facility] (MEDICAID REPLACEMENT - HMO) Georgie Kincaid [id number] Georgie Kincaid 09/01/2020 1 [facility] (MEDICAID REPLACEMENT - HMO) Georgie Kincaid [id number] Georgie Kincaid 11/01/[address] [facility] (MEDICAID REPLACEMENT - HMO) Georgie Kincaid [id number] Georgie Kincaid Notes Date Note Type Note Provider Name and Address Organization Details Recorded Time 03/23/2019 text/html 28yo presenting for annual CHUTE FEEDER exam. Po Tamez MD [address] [place] [address], [phone] 03/23/2019 12:34:18 06/03/2019 text/html 28yo LMP 05/16/19 presents for followup of abnormal pap smear Po Tamez MD [address] [place] [address], [address] [place] [address] 06/03/2019 11:50:19 09/03/2019 text/html 29yo LMP of 08/14/2019 presenting for concern of abnormal uterine bleeding. Po Tamez MD [address] [place] [address], [phone] 09/03/2019 17:54:22 09/01/2020 text/html Annual GYNReport ed bypatient.History: no gynecologic complaints Menstrual cycle:Normal menses Urinary symptoms:No hematuria; No incontinence Vulva:No genital lesion Vagina:Normal vaginal discharge Breast:No breast pain; No breast lump; No nipple discharge Current Contraception:Colquitt gamous relationship; Requests testing for sexually transmitted [...] 06/2019 colop benign) Aarti Don APN [address] [place], [address], [facility] 09/01/2020 12:47:10 OBGyn Episode Ob Episode Information Episode Created Date Number of Fetuses Patient Bloodtype Patient rh Status Prepregnancy Weight lbs Domestic Partner Domestic Partner Phone Father Name Retail Client Solutions Consultant Status 09/01/20 20 1 CLOSED Fetus Data First Name Last Name Admitted to NICU Weight (g) Sex Living Outcome Pediatric Complications Fetus ID Race Codes Race Delivery Type 4139.02 7 M Full Term 91523 Emerson Calculation Initial Emerson Date Initial Exam [...]
--- OUTSIDE RECORDS SUMMARY | 2025-03-22 09:37 | XMS_ITS | Clinical Summary ---
Author Organization [facility] Address [address] [place] [address] Care Team Providers Care Hydraulic Governor Assembler Name Role Phone Unavailable Primary Care Provider [...]
== END 2025-03-22 10:40 | disposition home or self-care (01) ==
PROVIDERS: PCP Internal Medicine; Visit Provider Nurse Practitioner Family
DX: M25.562 Pain in left knee (principal)

== ENCOUNTER → 2025-03-22 09:34 | Outpatient (BNVA) | payer OTHER, SELFPAY | PROVIDERS: PCP Internal Medicine; Visit Provider Nurse Practitioner Family | DX: M25.562 Pain in left knee (principal) | CPT/HCPCS: 99212 ==

== ENCOUNTER 2025-05-04 10:54 | Outpatient (AMB) | payer OTHER, SELFPAY ==
--- NOTE | 2025-05-04 11:00 | A.OFFVIS_ITS ---
Vital Signs 05/04/25 11:18 Height 5 ft 4 in Weight 208 lb 8.917 oz BMI 35.8 BP 118/72 Blood Pressure Location Rt brachial Position Sitting Pulse 75 Pulse Source Pulse Oximeter Pulse Oximetry (%) 98 Oxygen Delivery Method Room Air Intake Visit Reasons: arthralgias Intake Note: Patient presents for Arthralgias follow up. Patient c/o of joint pain and constant low energy. Patient feels pain on her neck, RT shoulder, mid back, RT hip, LT thumb, both knees and both ankles. Patient also stated she feels numbness and tingling running down RT arm. Patient has been feeling bilateral ankle pain since a young girl. The rest of her symptoms since three years ago. Patient takes over the counter NSAIDs and she stated is short-lived. Allergies amoxicillin [AMOXICILLIN] Allergy (Unknown, Verified 05/04/25 11:16) RASH, rash, swelling, hives sulfamethoxazole [From BACTRIM] Allergy (Unknown, Verified 05/04/25 11:16) HIVES trimethoprim [From BACTRIM] Allergy (Unknown, Verified 05/04/25 11:16) HIVES Medication List - Last Reconciled 05/04/25 by Taylor Reyna MD amitriptyline 10 mg PO BEDTIME aspirin 162 mg PO DAILY HPI Comments Details: Patient is a 34-year-old female current everyday smoker with congenital heart block s/p pacemaker placement, anxiety/depression, bipolar disorder and EtOH dependence here today for evaluation of antiphospholipid syndrome. 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, age 32 - 12 weeks, age 29 - 16 weeks, age 28 +3 Joint pain: 1st CMC on the left, knees, hips, ankles AM stiffness 30 mins No known family history of autoimmune disease Denies rashes, photosensitivity, alopecia, oral/nasal ulcers, sicca symptoms, lymphadenopathy, chest pain/shortness of breath, inflammatory type joint pain, foamy urine, lower extremity edema, muscle weakness, Raynaud's Also denies history of seizure, CVA, psychosis, history of kidney problems, history of cytopenias, history of VTE including PE or DVTs [facility], [facility] Medical History Pacemaker Pain in lower jaw No known health problems Surgical History No pertinent past surgical history Family History Maternal Grandfather Bladder cancer Renal cancer Social History Housing: Apartment Patient Tobacco Use Status: Current everyday Tobacco user e-Cigarette/Vaping Use: Never Used Substance Use Type: Marijuana service: No Current occupational status: employed Cognitive needs: No Hearing needs: No Vision needs: Yes Review of Systems Const Details: Review of Systems Constitutional: Denies fever, chills, weight loss ENT: Denies vision changes, eye pain or eye redness, dental caries, dry mouth GI: Denies nausea, vomiting, diarrhea, abdominal pain, change in BM Pulm: Denies SOB, LI, hemoptysis, wheezing Cards: Denies chest pain, palpitations Skin: Denies Raynaud's, rash, nail changes, photosensitivity, CLINICAL ASSOCIATE: Denies headaches, weakness, paresthesias, recurrent falls MSK: as per HPI All other systems reviewed and are unremarkable except noted above Physical Exam Vital Signs: Last Vital Signs Pulse 75 05/04/25 11:18 BP 118/72 05/04/25 11:18 Pulse Ox 98 05/04/25 11:18 Oxygen Delivery Method Room Air 05/04/25 11:18 BMI result Body Mass Index 35.8 Vital signs reviewed Physical Examination CONSTITUITIONAL Patient alert and cooperative. Well appearing and in no apparent painful distress HEENT Conjunctiva and sclera clear. ?Pupils equal round and reactive to light. ?No lymphadenopathy. ? CHEST/RESPIRATORY SYSTEM Normal respiratory effort and able to speak in complete sentences. ?Clear to auscultation bilaterally. ?No crackles, rales, rhonchi, wheezes heard. CARDIAC SYSTEM Regular rate and rhythm. ?S1 and S2 heard no murmurs. ?Radial pulses intact bilaterally MSK Hands: ?Able to make a fist. No synovitis noted to the MCPs, PIPs or DIPs. ?No tenderness to palpation of these joints. No deformities noted. ? Wrists: ?Full range of motion at the wrists without pain. ?No tenderness to palpation or synovitis noted to the wrists. Elbows: Full range of motion without pain. No tenderness, weakness, swelling, increased warmth or erythema. Shoulders: Full range of active range of motion without pain. No tenderness, wea kness, swelling, increased warmth or erythema. Hips: Full range of motion without pain. Hip bursa: Tenderness to palpation Knees: ?Full range of motion. ?No tenderness, swelling, increased warmth or erythema.?No effusion or crepitations Ankles: Full range of motion. ?No tenderness, swelling, increased warmth or erythema.? Feet: ?Negative squeeze test. ?No tenderness to palpation or swelling of the MTPs. Tender points:? Tenderness to palpation of bilateral pes anserine bursa and bilateral trochanteric bursa Normal Juan C's test bilaterally SKIN Skin intact without rashes. Results Reviewed Results Reviewed: Laboratory Tests 12/17/23 03/09/24 10:28 15:12 Double Strand DNA Ab 4 Beta-2-GPI IgG Ab 3.4 Beta-2-GPI IgA Ab 12.4 Beta-2-GPI IgM Ab 12.1 Anti-Cardiolipin IgG Ab 3.0 Anti-Cardiolipin IgM Ab 9.3 LA Weak positive Laboratory Tests 02/26/25 11:05 WBC 7.4 RBC 4.57 Hgb 14.1 Hct 41.9 Plt Count 226 Sodium 137 Potassium 4.4 Chloride 108 Carbon Dioxide 24 AST 19 ALT 25 Alkaline Phosphatase 49 25-OH Vitamin D Total 27 L Assessment & Plan Assessment & Plan (1) Antiphospholipid antibody syndrome: Code(s): D68.61 - Antiphospholipid syndrome Category: Medical Plan: #Obstetric APS Patient is a 34-year-old female with positive lupus anticoagulant x 2 12 weeks apart, with a history of recurrent 2nd trimester loss. This is co nsistent with obstetric APLS. The treatment for obstetric APLS is limited to where during she would need to be on a blood thinner. No evidence of thrombotic APLS as she denies any history of DVT, PE or any other clotting disorder. The clotting that occurred while she was having heart surgery is provoked and would not meet criteria. She does have myalgias and chronic joint pain involving her knees and her hips, however I believe this may be due to degenerative joint disease. Given her positive lupus anticoagulant she warrants further study with ANNMARIE, SSA/SSB, Hebert and other lupus related labs. Plan - CBC, CMP, ESR, CRP, C3, C4, dsDNA, UA, UPC, SSA, SSB, Hebert, MILL CONTROL OPERATOR, scleroderma panel - Will call with results Plan I spent 30 minutes reviewing the record and labs, taking a history, examining the patient, discussing the treatment plan, ordering diagnostic work up and documenting in the medical record Orders: Orders Anti DNA DS Antibody Today D6.61 - Antiphospholipid syndrome Sm Sm/MILL CONTROL OPERATOR Antibodies Today D68.61 - Antiphospholipid syndrome Complement C4 Today .61 - Antiphospholipid syndrome Protein Creatinine Ratio, Ur Today .61 - Antiphospholipid syndrome UA w Microscopic Today D6.61 - Antiphospholipid syndrome ANNMARIE Reflex Titer and Pattern Today .61 - Antiphospholipid syndrome Complement C3 Today D68.61 - Antiphospholipid syndrome Complete Blood Count Auto Diff Today .61 - Antiphospholipid syndrome Comprehensive Met. Panel Today 61 - Antiphospholipid syndrome C Reactive Protein Today D68.61 - Antiphospholipid syndrome Erythrocyte Sedimentation Rate Today D68.61 - Antiphospholipid syndrome Sjogren's Antibodies Today .61 - Antiphospholipid syndrome Scleroderma 70 Antibody Today 61 - Antiphospholipid syndrome Immunoglobulins,IgG IgA IgM Today 8.61 - Antiphospholipid syndrome Coding Level of Care Code New Pt Level 3 (92195) Diagnoses Antiphospholipid antibody syndrome
[2025-05-04 11:18] VITALS: BP 118/72; PULSE 75; O2SAT 98; BMI 35.8
--- OUTSIDE RECORDS SUMMARY | 2025-05-04 12:33 | XMS_ITS | Clinical Summary ---
Author Organization [facility] Address [address] [place] [address] Care Team Providers Care Steel Detailer Name Role Phone Unavailable Primary Care Provider [...] series) 2008 Pap Smear (Ages 21-65) 2010 COVID-19 Vaccine ( - 2023-2 5 season) 2024 Influenza Vaccine 07/02/2025 08/31/2016 HPV Vaccines Aged Out No longer eligi ble based on patient's age to complete this topic Pneumococcal Vaccine: Pediat yakov (0-5 Years) and At-Risk Patients (6 to 49 Years) Aged Out No longer eligible b ased on patient's age to complete this topic Insurance [facility] [place] [employer]
== END 2025-05-04 12:12 | disposition home or self-care (01) ==
LOC: HO.RHE 10:58
PROVIDERS: PCP Internal Medicine; Visit Provider Student in an Organized Health Care Education/Training Program
DX: D68.61 Antiphospholipid syndrome (principal)
CPT/HCPCS: 99203

== ENCOUNTER 2025-05-04 10:54 | Outpatient (REF) | payer OTHER, SELFPAY ==
[2025-05-04 12:38] LABS: MANUAL DIFF FLAG NO
[2025-05-04 13:50] LABS: Appearance Urine Turbid; Color Urine Yellow; Glucose Urine UA Negative (Negative); Leukocyte Esterase Urine Large (3+) (Negative); Nitrite Urine Negative (Negative); PH 5.5 (5.0-9.0); UMIC TRIGGER UA YES; Urine Blood Moderate (2+) (Negative); Urine Ketones Negative (Negative); Urine Protein 30 (1+) mg/dL (Neg-Trace)
[2025-05-04 14:00] LABS: Basophils Absolute Auto 0.1 X10*3/uL (0.0-0.2); Basophils Percent Auto 0.6 % (0-2); Eosinophils Absolute Auto 0.2 X10*3/uL (0.0-0.4); Eosinophils Percent Auto 1.9 % (0-4); Hematocrit 41.9 % (37.0-47.0); Imm Gran Abs Auto 0.02 X10*3/uL (0.00-0.03); Imm Gran Pct Auto 0.2 % (0.0-0.4); Lymphocytes Percent Auto 35.3 % (20-40); Mean Corpuscular HGB Conc 33.4 g/dl (31.0-35.0); Mean Corpuscular Hemoglobin 30.7 pg (27.0-33.0); Mean Corpuscular Volume 91.9 fL (80.0-98.0); Mean Platelet Volume 11.3 fL (9.4-12.3); Monocytes Absolute Auto 0.5 X10*3/uL (0.1-1.2); Monocytes Percent Auto 5.8 % (2-11); Neutrophils Absolute Auto 4.8 x10*3/uL (2.0-8.3); Neutrophils Percent Auto 56.2 % (45-73); Platelet Count 225 X10*3/uL (160-400); Red Blood Count 4.56 X10*6/uL (4.20-5.50); Red Cell Distribution Width 12.6 % (11.0-16.0); White Blood Count 8.6 X10*3/uL (4.8-10.8)
[2025-05-04 14:06] LABS: Bacteria Urine 4+ (None Seen); Squamous Epithelial Cell Urine >20 /HPF (0-2); WBC Urine >50 /HPF (0-5)
[2025-05-04 14:35] LABS: Alanine Aminotransferase 23 U/L (0-31); Albumin Level 4.4 g/dL (3.5-5.0); Alkaline Phosphatase 47 U/L (39-117); Anion Gap 9 (12-20); Aspartate Amino Transferase 16 U/L (5-31); Bilirubin Total 0.3 mg/dL (0.0-1.0); Blood Urea Nitrogen 10 mg/dL (9-16); C Reactive Protein 0.47 mg/dL (< or = 0.50); Carbon Dioxide 26 mmol/L (22-29); Chloride 106 mmol/L (96-108); Estimated Glomerular Filt Rate > 60; Glucose Random 81 mg/dL (60-115); Potassium 3.9 mmol/L (3.3-5.1); Sodium 137 mmol/L (135-145); Total Protein 7.3 g/dL (6.5-8.0)
[2025-05-04 14:37] LABS: Erythrocyte Sedimentation Rate 13 MM/HR (0-20)
[2025-05-04 14:39] LABS: Creatinine Urine 82.17 mg/dL; Protein/Creatinine Ratio, Ur 0.27 (<0.2); Total Protein Urine Random 22 mg/dL (<12)
[2025-05-05 06:58] LABS: IgA 172 mg/dL (47-310); IgG 1218 mg/dL (600-1640); IgM 129 mg/dL (50-300)
[2025-05-05 17:33] LABS: Complement C3 175 mg/dL (83-193)
[2025-05-05 20:18] LABS: Anti DNA DS Antibody 4 IU/mL; Antibody to SS-A Antigen <1.0 NEG AI (<1.0 NEG); Antibody to SS-B Antigen <1.0 NEG AI (<1.0 NEG); SM/Ribonucleoprotein Ab <1.0 NEG AI (<1.0 NEG); Scleroderma 70 Antibody <1.0 NEG AI (<1.0 NEG); Smith Protein <1.0 NEG AI (<1.0 NEG)
[2025-05-11 07:23] LABS: Anti Nuclear Antibody Pattern Nuclear, Speckled; Anti Nuclear Antibody Screen POSITIVE (NEGATIVE)
== END 2025-05-04 10:55 | disposition home or self-care (01) ==
LOC: HO.LAB 10:54
PROVIDERS: PCP Internal Medicine; Visit Provider Student in an Organized Health Care Education/Training Program
DX: D68.61 Antiphospholipid syndrome (principal); M25.50 Pain in unspecified joint
CPT/HCPCS: 36415; 80053; 81001; 82570; 82784; 84156; 85025; 85652; 86038; 86039; 86140; 86160; 86225; 86235; 99202

== ENCOUNTER 2025-05-18 16:15 | Outpatient (REF) | payer OTHER, SELFPAY ==
[2025-05-18 17:17] LABS: Appearance Urine Clear; Color Urine Yellow; Glucose Urine UA Negative (Negative); Leukocyte Esterase Urine Moderate (2+) (Negative); Nitrite Urine Negative (Negative); UMIC TRIGGER UA YES; Urine Blood Negative (Negative); Urine Ketones Negative (Negative); Urine Protein Negative (Neg-Trace)
[2025-05-18 17:31] LABS: Bacteria Urine Trace (None Seen); Hyaline Casts Urine 0-2 /LPF (0-2); RBC Urine 0-2 /HPF (0-2); WBC Urine 0-5 /HPF (0-5)
[2025-05-18 18:13] LABS: Total Protein Urine Random < 7 mg/dL (<12)
--- OUTSIDE RECORDS SUMMARY | 2025-05-18 18:30 | XMS_ITS | Clinical Summary ---
Author Organization Formerly [facility] Address [address] [place] [address] Care Team Providers Care Director Of Leadership Development Name Role Phone Unavailable Primary Care Provider [...] patient's age to complete this topic Insurance [facility] [place] [employer]
== END 2025-05-18 16:16 | disposition home or self-care (01) ==
LOC: HO.LAB 16:15
PROVIDERS: PCP Internal Medicine; Visit Provider Student in an Organized Health Care Education/Training Program
DX: R31.9 Hematuria, unspecified (principal)
CPT/HCPCS: 81001; 82570; 84156